=== PATIENT | female | born 1935 | race Caucasian/White ===

== ENCOUNTER 2020-05-16 12:47 | Outpatient (CLI) | payer MEDICARE, SELFPAY ==
[2020-05-16 13:38] LABS: Thyroid Stimulating Hormone 0.18 uIU/mL (0.36-3.74)
== END 2020-05-16 12:48 | disposition home or self-care (01) ==
PROVIDERS: PCP Internal Medicine; Visit Provider Internal Medicine
DX: E03.9 Hypothyroidism, unspecified (principal)
CPT/HCPCS: 36415; 84443

== ENCOUNTER 2020-06-15 10:58 | Outpatient (CLI) | payer MEDICARE, SELFPAY ==
[2020-06-15 11:12] LABS: Basophils Absolute Auto 0.03 K/mm3 (0.00-0.10); Basophils Percent Auto 0.4 % (0.0-1.0); Eosinophils Absolute Auto 0.24 K/mm3 (0.02-0.50); Eosinophils Percent Auto 3.6 % (1.0-6.0); Hematocrit 36.9 % (35.0-42.0); Hemoglobin 12.3 g/dL (11.7-13.8); Immature Granulocyte Absolute 0.01 K/mm3 (0.00-0.00); Immature Granulocyte Percent A 0.1 % (0.0-0.0); Lymphocytes Absolute Auto 3.38 K/mm3 (1.10-4.50); Lymphocytes Percent Auto 50.2 % (18.0-42.0); Mean Corpuscular HGB Conc 33.3 g/dL (32.0-36.0); Mean Corpuscular Hemoglobin 30.9 pg (27.0-31.0); Mean Corpuscular Volume 92.7 fL (78.0-102.0); Mean Platelet Volume 9.6 fl (9.2-11.8); Monocytes Percent Auto 8.9 % (2.0-11.0); Neutrophils Absolute Auto 2.5 K/mm3 (1.7-7.2); Neutrophils Percent Auto 36.8 % (50.0-70.0); Platelet Count Result 238 K/mm3 (150-420); Red Blood Count 3.98 M/mm3 (4.20-5.40); White Blood Count 6.7 K/mm3 (4.8-10.8)
[2020-06-15 11:13] LABS: Add Urine Microscopic? NO; Appearance Urine Clear (Clear); Bilirubin Urine Negative (Negative); Blood Urine Negative (Negative); Color Urine Yellow (Yellow); Glucose Urine UA Negative (Negative); Ketones Urine Negative (Negative); Leukocyte Esterase Ur Negative LEU/UL (Negative); Nitrate Urine Negative (Negative); Protein Urine Negative (Negative); Urobilinogen Urine 0.2 mg/dL (0.2-1.0)
[2020-06-15 11:38] LABS: Alanine Aminotransferase 21 U/L (14-59); Albumin Level 3.8 g/dL (3.4-5.0); Alkaline Phosphatase 66 U/L (46-116); Aspartate Amino Transferase 56 U/L (15-37); Bilirubin,Total 0.4 mg/dL (0.00-1.00); Blood Urea Nitrogen 19 mg/dL (7-18); Calcium 8.9 mg/dL (8.5-10.1); Carbon Dioxide 29 mmol/L (21-32); Chloride 103 mmol/L (98-108); Cholesterol 151 mg/dL (0-200); Estimated Glomerular Filt Rate 42; Glucose 88 mg/dL (70-99); HDL Direct 40 mg/dL (40-60); LDL Cholesterol Calculated 86 mg/dL (<130); Osmolality Calculated 283 mOsm/kg (285-295); Sodium 136 mmol/L (136-145); Total Protein 8.1 g/dL (6.4-8.2); Triglycerides 124 mg/dL (0-150)
== END 2020-06-15 10:59 | disposition home or self-care (01) ==
LOC: CHSLAB 11:00
PROVIDERS: PCP Internal Medicine; Visit Provider Internal Medicine
DX: E03.9 Hypothyroidism, unspecified (principal); E78.5 Hyperlipidemia, unspecified; M54.5 Low back pain
CPT/HCPCS: 36415; 80053; 80061; 81003; 84443; 85025

== ENCOUNTER 2020-11-01 15:06 | Outpatient (CLI) | payer MEDICARE, SELFPAY ==
--- NOTE | ~2020-11-01 | XR_ITS ---
XR lumbar spine 2-3V 11/01/2020 15:54 Indication: Low back pain Procedure: 3 views lumbar spine Comparison: 09/17/2017 Findings: There is disc narrowing at all lumbar levels. No fracture or traumatic malalignment. No joyce dence for spondylolisthesis. There is facet degenerative change at L3-4, L4-5 and L5-S1. Prominent ma rginal osteophytes. Sacral foramen are symmetric. There are cholecystectomy clips. Impression: 1: Moderate lumbar spondylosis. Reviewed, dictated and finalized at location B. H BRUSHER Impression: 1: Moderate lumbar spondylosis.
--- NOTE | ~2020-11-01 | XR_ITS ---
XR hip LT min 2V 11/01/2020 15:54 Indication: Low back pain. Hip pain. Procedure: 2 views left hip Comparison: No prior studies for comparison. Findings: Moderate-severe osteoarthritis of the left hip. No fracture or traumatic malalignment. No s ignificant soft tissue abnormality. Sacral foramen are symmetric. There are degenerative changes of t he lower lumbar spine and pubic symphysis. Impression: 1: Moderate-severe osteoarthritis of the left hip. Reviewed, dictated and finalized at location B. ACE TENDER Impression: 1: Moderate-severe osteoarthritis of the left hip.
[2020-11-01 15:22] LABS: Basophils Absolute Auto 0.03 K/mm3 (0.00-0.10); Basophils Percent Auto 0.5 % (0.0-1.0); Eosinophils Absolute Auto 0.11 K/mm3 (0.02-0.50); Eosinophils Percent Auto 1.7 % (1.0-6.0); Hematocrit 34.1 % (35.0-42.0); Hemoglobin 11.1 g/dL (11.7-13.8); Immature Granulocyte Absolute 0.02 K/mm3 (0.00-0.00); Immature Granulocyte Percent A 0.3 % (0.0-0.0); Lymphocytes Percent Auto 44.9 % (18.0-42.0); Mean Corpuscular HGB Conc 32.6 g/dL (32.0-36.0); Mean Corpuscular Hemoglobin 29.8 pg (27.0-31.0); Mean Corpuscular Volume 91.7 fL (78.0-102.0); Mean Platelet Volume 9.5 fl (9.2-11.8); Monocytes Absolute Auto 0.88 K/mm3 (0.10-0.90); Monocytes Percent Auto 13.6 % (2.0-11.0); Neutrophils Absolute Auto 2.5 K/mm3 (1.7-7.2); Platelet Count Result 262 K/mm3 (150-420); Red Blood Count 3.72 M/mm3 (4.20-5.40); Red Cell Distribution Width 13.4 % (11.6-14.4); White Blood Count 6.5 K/mm3 (4.8-10.8)
[2020-11-01 16:00] LABS: Alanine Aminotransferase 18 U/L (14-59); Albumin Level 3.7 g/dL (3.4-5.0); Alkaline Phosphatase 64 U/L (46-116); Amylase 55 U/L (25-115); Anion Gap 9 mmol/L (8-16); Aspartate Amino Transferase 54 U/L (15-37); Bilirubin,Total 0.3 mg/dL (0.00-1.00); Blood Urea Nitrogen 24 mg/dL (7-18); CRP 1.1 mg/dL (0.0-0.9); Calcium 9.1 mg/dL (8.5-10.1); Carbon Dioxide 27 mmol/L (21-32); Chloride 99 mmol/L (98-108); Estimated Glomerular Filt Rate 40; Glucose 93 mg/dL (70-99); Lipase 188 U/L (73-393); Osmolality Calculated 284 mOsm/kg (285-295); Sodium 135 mmol/L (136-145); Total Protein 9.7 g/dL (6.4-8.2)
== END 2020-11-01 15:07 | disposition home or self-care (01) ==
PROVIDERS: PCP Internal Medicine; Visit Provider Internal Medicine
DX: M54.5 Low back pain (principal); M25.552 Pain in left hip; R10.9 Unspecified abdominal pain; M16.12 Unilateral primary osteoarthritis, left hip
CPT/HCPCS: 36415; 72100; 73502; 80053; 82150; 83690; 85025; 86140

== ENCOUNTER 2020-11-04 09:29 | Outpatient (CLI) | payer MEDICARE, SELFPAY ==
--- NOTE | ~2020-11-04 | CT_ITS ---
EXAMINATION: CT abdomen pelvis w con EXAM DATE: 11/04/2020 10:11 INDICATION: Right lower quadrant intermittent pain with nausea and vomiting. Symptoms 3 days. TECHNIQUE: Spiral CT of the abdomen and pelvis was performed following intravenous injection of 100 m L Omnipaque 350. Axial, coronal and sagittal images were reviewed. The dose-length product (DLP) fo r this examination was 398.22 mGy-cm. The exposure was tailored according to patient size (auto mA e xposure control), and iterative reconstruction (ASIR) was used as additional dose reduction technique . Comparison is made to prior examination from 11/26/2018. FINDINGS: Scattered faint patchy basilar groundglass opacities Appearance could indicate early stage COVID 19 pneumonia. Less likely acute possibilities include influenza, pulmonary edema or hemorrhag e. Some chronic processes that can have this appearance include cryptogenic organizing pneumonia, tiesha quamative interstitial pneumonia, nonspecific interstitial pneumonia, drug toxicity, connective tissu e disease. Please clinically correlate and test as appropriate. The liver, spleen, adrenal glands and pancreas are unremarkable. There are cholecystectomy clips. P ortal and splenic veins are patent. Kidneys enhance symmetrically. There is no hydronephrosis. Th e uterus is unremarkable. Left-sided pelvic congestion syndrome. The bladder is unremarkable. There is no retroperitoneal or pelvic lymphadenopathy. Moderate aortic arterial sclerosis. Small inguinal fat-containing hernias. In the left labia there is soft tissue density, measuring 3.4 x 1.9 cm, most likely Bartholin's gland origin. This could be a proteinaceous or stones gland duct cy st, or soft tissue mass. It appears unchanged compared to 2018 and therefore most likely benign findi ng. The appendix or its surgical stump is unremarkable. The stomach and small bowel are unremarkable. T here is expected amount of colonic stool. There is mild scattered colonic diverticulosis. There is n o adjacent inflammatory change to suggest diverticulitis. No free intraperitoneal gas. The heart i s normal in size. There are no pericardial or pleural effusions. Interval development of large oste olytic lesions within L1, L3 and L4 vertebral bodies. IMPRESSION: 1. Some faint ill-defined basilar groundglass opacities, possible early COVID-19. Some other possibi lities listed above. 2. Interval development of osteolytic disease L1, L3 and L4. Likely myeloma or other metastatic dise ase. 3. Left labial soft tissue density mass unchanged, likely Bartholin's gland duct cyst. Solid mass no t excludable but most likely benign. I discussed bone lesions, possible COVID-19 with Davy Isabel MD at 11/04/2020 11:45 STAGE PRODUCER. Reviewed, dictated and finalized at location A. E PRODUCER IMPRESSION: 1. Some faint ill-defined basilar groundglass opacities, possible early COVID- 19. Some other possibilities listed above. 2. Interval development of osteolytic disease L1, L3 and L4. Likely myeloma or other metastatic disease. 3. Left labial soft tissue density mass unchanged, likely Bartholin's gland du ct cyst. Solid mass not excludable but most likely benign. I discussed bone lesions, possible COVID-19 with Davy Isabel MD at 11/04/2020 11:45 STAGE PRODUCER.
== END 2020-11-04 09:30 | disposition home or self-care (01) ==
PROVIDERS: PCP Internal Medicine; Visit Provider Internal Medicine
DX: R10.9 Unspecified abdominal pain (principal)
CPT/HCPCS: 74177; Q9965

== ENCOUNTER 2020-11-07 09:35 | Outpatient (CLI) | payer MEDICARE, SELFPAY ==
[2020-11-07 11:19] LABS: Hematocrit 31.8 % (35.0-42.0); Hemoglobin 10.3 g/dL (11.7-13.8); Mean Corpuscular HGB Conc 32.4 g/dL (32.0-36.0); Mean Corpuscular Hemoglobin 29.2 pg (27.0-31.0); Mean Corpuscular Volume 90.1 fL (78.0-102.0); Mean Platelet Volume 9.6 fl (9.2-11.8); Platelet Count Result 217 K/mm3 (150-420); Red Blood Count 3.53 M/mm3 (4.20-5.40); Red Cell Distribution Width 13.5 % (11.6-14.4); White Blood Count 3.6 K/mm3 (4.8-10.8)
[2020-11-07 11:41] LABS: SARS-CoV-2 Ag Positive (Negative)
[2020-11-07 12:34] LABS: Band Neutrophils Percent 0 % (0-6); Basophils Percent Manual 0 % (0-1); Eosinophils Percent Manual 0 % (1-6); Lymphocytes Absolute Manual 1.36 K/mm3 (1.1-4.5); Lymphocytes Percent Manual 38 % (18-44); Monocytes Absolute Manual 0.21 K/mm3 (0.1-0.90); Monocytes Percent Manual 6 % (3-9); Neutrophils Absolute Manual 2.01 K/mm3 (1.7-7.2); Neutrophils Percent Manual 56 % (46-73); Platelet Estimate Adequate (Adequate); Total Cells Counted 100
== END 2020-11-07 09:36 | disposition home or self-care (01) ==
LOC: CHSLAB 09:37
PROVIDERS: PCP Internal Medicine; Visit Provider Internal Medicine
DX: U07.1 COVID-19 (principal)
CPT/HCPCS: 36415; 85025; 87426

== ENCOUNTER 2020-11-09 10:37 | Observation (INO) | payer MEDICARE, SELFPAY ==
[2020-11-09] VITALS (21 sets, daily range): BP systolic 113–145; BP diastolic 47–83; PULSE 68–84; RESP 16–24; TEMP 36.6–36.7; O2SAT 92–94; BMI 24.2
--- NOTE | ~2020-11-09 | XR_ITS ---
EXAMINATION: XR chest 1V portable DATE: 11/09/2020 11:28 INDICATION: COVID-19 pneumonia. TECHNIQUE: A single frontal view of the chest was obtained. COMPARISON: Chest 2 views 02/04/2019, CT abdomen and pelvis 11/04/20 FINDINGS: There are patchy airspace opacities in all lung zones bilaterally, worst in the midlung zon es. No pleural effusion or pneumothorax. The heart size is normal. IMPRESSION: 1. Diffuse lung disease, consistent with pneumonia. Reviewed, dictated and finalized at location B. IRER HANDTOOLS
--- NOTE | 2020-11-09 11:09 | ECG_ITS ---
Measurements Intervals Ramona Rate: 72 P: 69 IA: 128 QRS: -79 QRSD: 138 T: 2 QT: 434 QTc: 477 Interpretive Statements SINUS RHYTHM RIGHT BUNDLE BRANCH BLOCK LEFT ANTERIOR FASCICULAR BLOCK BASELINE WANDER- V6 ABNORMAL ECG Electronically Signed On 11-09-2020 12:26:09 TECHNICAL STENOGRAPHER by Hiram Fernandez D.O.
[2020-11-09 11:18] LABS: Eosinophils Percent Auto 0.3 % (0-4.4); Hematocrit 32.5 % (37.0-47.0); Hemoglobin 10.7 g/dL (12.0-15.0); Immature Granulocyte Absolute 0.01 K/mm3 (0.00-0.031); Immature Granulocyte Percent A 0.3 % (0-0.5); Lymphocytes Absolute Auto 0.98 K/mm3 (0.9-3.2); Lymphocytes Percent Auto 31.6 % (18.3-44.2); Mean Corpuscular HGB Conc 32.9 g/dl (32-36); Mean Corpuscular Hemoglobin 29.3 pg (26-34); Mean Platelet Volume 9.4 fl (7.4-10.4); Monocytes Absolute Auto 0.2 K/mm3 (0.1-0.6); Monocytes Percent Auto 7.1 % (2.6-8.5); Neutrophils Absolute Auto 1.9 K/mm3 (1.3-6.7); Neutrophils Percent Auto 60.7 % (45.5-73.1); Platelet Count Result 250 k/mm3 (150-375); Red Blood Count 3.65 M/mm3 (4.2-5.4); Red Cell Distribution Width 13.7 % (11.5-14.5); White Blood Count 3.1 K/mm3 (4.5-10.0)
[2020-11-09 11:29] LABS: Lactic Acid Reflex 1.3 mmol/L (0.7-2.1)
[2020-11-09 11:29] LABS: Anion Gap 7 mmol/L (8-16); Blood Urea Nitrogen 16 mg/dL (7-17); Calcium 8.6 mg/dL (8.4-10.2); Carbon Dioxide 27 mmol/L (22-30); Chloride 100 mmol/L (98-107); Estimated CRCL calculation 36 ml/min; Estimated Glomerular Filt Rate 60; Glucose 103 mg/dL (65-105); Potassium 3.7 mmol/L (3.4-5.0); Sodium 134 mmol/L (137-145)
--- NOTE | 2020-11-09 11:34 | ED.SOB ---
HPI - SOB/Dyspnea General Chief Complaint: Shortness of Breath/Dyspnea Stated Complaint: covid +, sob, ams Time Seen by Provider: 11/09/20 11:05 History of Present Illness HPI Narrative: 84 yo female w/ h/o hypercholesterolemia and hypothyroidism presents to the ED for COVID-19. She Has not been feeling well for the past week. She reports cough, SOB, fatigue, poor appetite for about the past week. She had a positive COVID-19 test on 11/07. Family reportedly brought her in today because she was more confused and SOB. She also had a CT done of the abdomen and pelvis on 11/04 at [facility] that showed lytic lesion in the lumbar spine concerning for lymphoma or metastatic disease. Related Data Home Medications Medication Instructions Recorded Confirmed acetaminophen 500 mg PO Q6H PRN 11/09/20 11/09/20 levothyroxine 75 mcg PO DAILY 11/09/20 11/09/20 simvastatin 10 mg PO DIRECTED 11/09/20 11/09/20 Allergies Allergy/AdvReac Type Severity Reaction Status Date / Time No Known Allergies Allergy Unknown Verified 11/09/20 15:11 Review of Systems Review of Systems: All systems reviewed & are unremarkable except as noted in HPI and below Constitutional: Constitutional: Reports chills, Reports fatigue, Denies fever(s) and Reports weakness ENT: Denies sore throat Cardiovascular: Cardiovascular: Denies chest pain Respiratory: Respiratory: Reports cough, Reports dyspnea and Reports wheezing Gastrointestinal: Gastrointestinal: Reports nausea and Reports vomiting Genitourinary: Genitourinary: Denies hematuria and Denies dysuria Musculoskeletal: Musculoskeletal: Denies back pain Neurologic: Denies dizziness and Reports weakness PMF Past Medical History Medical History (Updated 11/09/20 @ 20:42 by Juan Rolle MD) Bilateral cataracts Hypercholesterolemia Hypothyroidism Surgical History Surgical History (Updated 11/09/20 @ 17:57 by Sadie Mauricio NP) H/O bilateral cataract extraction H/O hemorrhoidectomy History of removal of pigmented skin lesion Previous back surgery Family History Family History (Updated 11/09/20 @ 18:09 by Sadie Mauricio NP) Mother Family history of malignant neoplasm Carcinoma of colon Father No problems noted. Sibling Cancer Brother leukemia and another brother with another type of can Dementia 1 brother Social History Social History (Updated 11/09/20 @ 18:09 by Sadie Mauricio NP) Social History: The patient has 3 sons. 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 The patient is a full code. She lives home alone she is . 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 Smoking status: Never smoker Second hand tobacco smoke exposure: No Smoking end date: [birth year]/02/1955 Alcohol intake: current Substance use: never Gender identity (if verbalized by the patient): Female Sexual Orientation (if Verbalized by the Patient): Straight or Heterosexual Spiritual care concerns: No Exam Const: General: healthy appearing, no acute distress and alert Orientation/consciousness: patient oriented x3 HENMT: Head: normal to inspection Neck: Neck: normal visual inspection and no lymphadenopathy Chest: Chest palpation & inspection: no tenderness Resp: Effort & Inspection: normal respiratory effort Auscultation: no rales, no rhonchi and wheezes Cardio: Jugular venous distension: no JVD Rate: regular rate Rhythm: regular rhythm Heart sounds: no murmurs GI: Inspection: non-distended GI Palp: Yes Soft to palpation and No Tenderness to palpation present (GI) Skin: General skin exam: normal color Neuro: General: patient oriented x3 and moves all extremities Speech: normal speech Extrem: General: no edema Psych: Appearance: well kempt Affect: normal affect Course Vital Signs Vital signs: Vital Signs Temperature 36.6 C 11/09/20 11:00 Pulse R
[2020-11-09] MEDS: SODIUM CHLORIDE 0.9% IV 500 ML 999 ML IV CONT (12:00)
[2020-11-09 12:02] LABS: Alanine Aminotransferase 23 U/L (4-35); Albumin Level 3.5 g/dL (3.5-5.1); Alkaline Phosphatase 61 U/L (38-126); Aspartate Amino Transferase 104 U/L (14-36); Bilirubin,Total 0.5 mg/dL (0.2-1.3)
[2020-11-09 12:38] LABS: Add Urine Microscopic? YES; Appearance Urine Clear (Clear); Bilirubin Urine Negative (Negative); Blood Urine Negative (Negative); Color Urine Yellow (Yellow); Glucose Urine UA Negative (Negative); Ketones Urine Negative (Negative); Leukocyte Esterase Ur Negative LEU/UL (Negative); Mucus Urine Rare /lpf; Nitrate Urine Negative (Negative); Protein Urine 2+ mg/dL (Negative); RBC Urine 0-2 /hpf (0-2); Squamous Epithelial Cell Urine Rare /hpf (Few); Urobilinogen Urine Negative mg/dL (<2.0); WBC Urine 0-3 /hpf
[2020-11-09 12:40] LABS: Specific Grav Ur 1.032 (1.001-1.035)
[2020-11-09] MEDS: ALBUTEROL SULFATE (*SP) AEROSOL 1 PUFF 4 PUFF INHALATION (12:45)
[2020-11-09] MEDS: ALBUTEROL SULFATE (*SP) INHALER 1 PUFF (12:58)
--- NOTE | 2020-11-09 15:04 | ADMGEN ---
This patient, Beverly Linares, was admitted to [facility] Surg Room 317-01. Patient/family oriented to hospital policies and general routines including ID bracelet, bed and alarms, visiting hours, pain management, procedures, bathroom and other care routines, personal items, smoking policy, room service/diet, and visiting hours. Information on how to activate the Rapid Response Team has been discussed. Patient/Family are encouraged to report perceived risks to care and to ask questions if they do not understand what they are told or what they should do.
--- NOTE | 2020-11-09 17:47 | PM.IMHP ---
H&P: HPI History of Present Illness Date/Time: 11/09/20 17:47 Chief complaint: COVID 19 pneumonia/lytic spinal lesions Narrative: Beverly Linares is a 84 year old female who came to the hospital today because she has been having a cough shortness of breath fatigue and a poor appetite for the last week. She did meet with her family members over the and 2 of those members have tested positive for COVID-19 since then. She had a positive covid 19 test on 11/07/20. The CT of the abdomen and pelvis was performed site [facility] on 11/04 which was showing some lytic lesions in the lumbar spine concerning for lymphoma or metastatic disease. The patient stated she was just told that it was arthritis. She has not had any follow-up. She has no complaints of any discomfort at this time. The patient was started on Decadron in the Emergency because the ER provider felt the patient was short of breath. However the patient is currently on room air. She is up walking with 1 assist without difficulty. She is not requiring any oxygen. In to me she is alert orientated x3. She is answering questions without difficulty. She is very hard of hearing and therefore can be difficult to communicate with the patient making it difficult for the patient to understand. However when you speak to the patient loudly enough and into her ear she can communicate appropriately. That the patient was dehydrated she was given IV fluids. Patient was admitted into observation status on 11/09/2020. Review of Systems Review of Systems: All systems reviewed & are unremarkable except as noted in HPI and below Constitutional: Constitutional: Reports as per HPI and Reports no additional constitutional complaints Eyes: Eyes: Reports as per HPI and Reports no additional eye complaints ENT: Reports system reviewed and no additional complaints, except as documented and Reports Normal hearing present Cardiovascular: Cardiovascular: Reports no additional cardiovascular complaints Respiratory: Respiratory: Reports no additional respiratory complaints and Reports no additional respiratory complaints Gastrointestinal: Gastrointestinal: Reports as per HPI and Reports no additional gastrointestinal complaints Musculoskeletal: Musculoskeletal: Reports no additional musculoskeletal complaints Integumentary/Breasts: Skin/Breast: Reports system reviewed and no additional complaints, except as docu and Reports as per HPI Neurologic: Reports system reviewed and no additional complaints, except as documented, Reports as per HPI and Reports Normal hearing present Psychiatric: Psychiatric: Reports no additional psychiatric complaints and Reports as per HPI Endocrine: Endocrine: Reports no additional endocrine complaints Hematologic/Lymphatic: Hematologic/Lymphatic: Reports no additional hematologic/lymphatic complaints Allergic/Immunologic: Allergic/Immunologic: Reports no additional allergic/immunologic complaints [facility] Past Medical History Medical History (Updated 11/09/20 @ 18:13 by Sadie Mauricio NP) Bilateral cataracts Hypercholesterolemia Hypothyroidism Surgical History Surgical History (Updated 11/09/20 @ 17:57 by Sadie Mauricio NP) H/O bilateral cataract extraction H/O hemorrhoidectomy History of removal of pigmented skin lesion Previous back surgery Family History Family History (Updated 11/09/20 @ 18:09 by Sadie Mauricio NP) Mother Family history of malignant neoplasm Carcinoma of colon Father No problems noted. Sibling Cancer Brother leukemia and another brother with another type of can Dementia 1 brother Social History Social History (Updated 11/09/20 @ 18:09 by Sadie Mauricio NP) Social History: The patient has 3 sons. 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 The patient is a full code. She lives home alone she is . 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
[2020-11-09] MEDS: LACTATED RINGERS 1,000 ML 75 ML IV CONT (18:06)
[2020-11-09] MEDS: ALBUTEROL SULFATE (*SP) AEROSOL 1 PUFF 2 PUFF INHALATION (20:56)
[2020-11-10] VITALS: BP 139/64; PULSE 64; PULSE 68; RESP 16; TEMP 36.6; O2SAT 94
[2020-11-10] MEDS: ACETAMINOPHEN 500 MG TABLET PO ×2 (00:30→10:47)
[2020-11-10 04:00] VITALS: BP 144/61; PULSE 54; PULSE 63; RESP 18; TEMP 36.3; O2SAT 95
[2020-11-10 06:46] LABS: Lactic Acid Reflex 1.2 mmol/L (0.7-2.1)
[2020-11-10] MEDS: LEVOTHYROXINE SODIUM 75 MCG TABLET PO (06:48)
[2020-11-10 06:49] LABS: Alanine Aminotransferase 21 U/L (4-35); Albumin Level 3.5 g/dL (3.5-5.1); Alkaline Phosphatase 60 U/L (38-126); Anion Gap 7 mmol/L (8-16); Aspartate Amino Transferase 85 U/L (14-36); Bilirubin,Total 0.3 mg/dL (0.2-1.3); Blood Urea Nitrogen 20 mg/dL (7-17); CRP 8.5 mg/dL (<1.0); Calcium 8.7 mg/dL (8.4-10.2); Carbon Dioxide 22 mmol/L (22-30); Chloride 105 mmol/L (98-107); Estimated CRCL calculation 40 ml/min; Estimated Glomerular Filt Rate > 60; Glucose 140 mg/dL (65-105); Lactate Dehydrogenase 643 U/L (313-618); Sodium 134 mmol/L (137-145)
[2020-11-10 06:53] LABS: Hematocrit 29.3 % (37.0-47.0); Hemoglobin 9.8 g/dL (12.0-15.0); Mean Corpuscular HGB Conc 33.4 g/dl (32-36); Mean Corpuscular Hemoglobin 28.9 pg (26-34); Mean Corpuscular Volume 86.4 fl (80-100); Mean Platelet Volume 9.8 fl (7.4-10.4); Platelet Count Result 274 k/mm3 (150-375); Red Blood Count 3.39 M/mm3 (4.2-5.4); Red Cell Distribution Width 13.7 % (11.5-14.5); White Blood Count 3.9 K/mm3 (4.5-10.0)
[2020-11-10 07:31] LABS: Thyroid Stimulating Hormone Reflex 0.755 uIU/mL (0.465-4.68)
[2020-11-10 07:35] LABS: Band Neutrophils Percent 1 % (0-6); Lymphocytes Absolute Manual 0.97 K/mm3 (1.1-4.5); Monocytes Absolute Manual 0.35 K/mm3 (0.1-0.90); Monocytes Percent Manual 9 % (3-9); Neutrophils Absolute Manual 2.57 K/mm3 (1.7-7.2); Neutrophils Percent Manual 65 % (46-73); Total Cells Counted 100
[2020-11-10 07:36] LABS: Ovalocytes 1+ (NORMAL); Platelet Estimate Adequate (Adequate)
[2020-11-10 08:00] VITALS: BP 139/65; PULSE 61; PULSE 66; RESP 16; TEMP 36.4; O2SAT 91
[2020-11-10] MEDS: ENOXAPARIN 40 MG/0.4 ML SYRINGE SUB-Q (08:13)
[2020-11-10] MEDS: DEXAMETHASONE SOD PHOS INJ 4 MG/ML VIAL 6 MG IV PUSH (08:13)
[2020-11-10] MEDS: ALBUTEROL SULFATE (*SP) AEROSOL 1 PUFF 2 PUFF INHALATION ×3 (08:14→16:52)
[2020-11-10 12:00] VITALS: BP 114/78; PULSE 65; PULSE 68; RESP 18; TEMP 36.5; O2SAT 91
[2020-11-10 15:44] VITALS: BP 137/69; PULSE 77; RESP 18; TEMP 36; O2SAT 92
[2020-11-10 16:00] VITALS: PULSE 67
[2020-11-10 16:03] LABS: Lactate Dehydrogenase 700 U/L (313-618)
[2020-11-10 16:20] LABS: Immunoglobulin A 116 mg/dL (70-400); Immunoglobulin M 38 mg/dL (40-230)
[2020-11-10 16:28] LABS: Iron 24 ug/dL (37-170)
[2020-11-10 16:37] LABS: Percent Iron Saturation 10 % (20-50)
[2020-11-10 17:12] LABS: Immunoglobulin G 2971 mg/dL (700-1600)
--- NOTE | 2020-11-10 17:41 | PDONCCN ---
HPI - Date of Consult Date/Time: 11/10/20 17:41 Requesting Physician: Mellissa Lopez PA-C Primary Care Provider: Davy Isabel MD - Consult Narrative Reason for consult: Anemia and lytic bone lesion Narrative: Beverly Lianres is a 84 year old female who has been in good health except history of hypothyroidism and hyperlipidemia came into the hospital with generalized weakness cough and shortness of breath. She denies any fevers and chills. She met with the family members over the iday and 2 although some remembers were reportedly positive for COVID-19 infection. She had COVID-19 testing done on November [address] abdomen and pelvis was performed on November 04 that showing lytic lesion on the lumbar spine concerning for lymphoma or metastatic disease. She denies any previous history of malignancy. She denies any new lumps or lymphadenopathy. She has gradually lost 20 lb weight in last several months. She has a family history of cancer in the father who of leukemia as well as mother with colon cancer. Another brother had colon cancer as well. She is already feeling better. Review of Systems - Review of Systems All systems reviewed & are unremarkable except as noted in HPI and bel - Neurologic Reports system reviewed and no additional complaints, except as documented, Reports hearing normal, Reports weakness PMFSH Medical History: Medical History (Last Updated 11/09/20 @ 18:13 by Sadie Mauricio NP) Bilateral cataracts Hypercholesterolemia Hypothyroidism Surgical History: Surgical History (Last Updated 11/09/20 @ 17:57 by Sadie Mauricio NP) H/O bilateral cataract extraction H/O hemorrhoidectomy History of removal of pigmented skin lesion Previous back surgery Family History: Family History (Last Updated 11/09/20 @ 18:09 by Sadie Mauricio NP) Mother Family history of malignant neoplasm Carcinoma of colon Father No problems noted. Sibling Cancer Brother leukemia and another brother with another type of can Dementia 1 brother - Social History Social History: Social History (Last Updated 11/09/20 @ 18:09 by Sadie Mauricio NP) Gender Identity: Gender identity (if verbalized by the patient): Female Sexual Orientation: Sexual Orientation (if Verbalized by the Patient): Straight or Heterosexual Alcohol Use: Alcohol intake: current Substance Use: Substance use: never Others: Spiritual care concerns: No Smoking Status: Smoking status: Never smoker Second hand tobacco smoke exposure: No Smoking end date: [birth year]02/1955 Meds Home Medications Medication Instructions Recorded Confirmed Type acetaminophen 500 mg PO Q6H PRN 11/09/20 11/09/20 History levothyroxine 75 mcg PO DAILY 11/09/20 11/09/20 History simvastatin 10 mg PO DIRECTED 11/09/20 11/09/20 History dexamethasone 6 mg PO DAILY #9 tablet 11/10/20 Rx Allergies Allergy/AdvReac Type Severity Reaction Status Date / Time No Known Allergies Allergy Unknown Verified 11/09/20 15:11 Results - Labs CBC & Chem 7: 11/10/20 06:09 11/10/20 06:09 Labs: Short CBC 11/10/20 Range/Units 06:09 WBC 3.9 L (4.5-10.0) K/mm3 Hgb 9.8 L (12.0-15.0) g/dL Hct 29.3 L (37.0-47.0) % Plt Count 274 (150-375) k/mm3 BMP 11/10/20 06:09 Sodium 134 L Potassium 4.0 Chloride 105 Carbon Dioxide 22 BUN 20 H Creatinine 0.80 Glucose 140 H Calcium 8.7 Liver Function 11/10/20 Range/Units 06:09 Total Bilirubin 0.3 (0.2-1.3) mg/dL AST 85 H (14-36) U/L ALT 21 (4-35) U/L Alkaline Phosphatase 60 (38-126) U/L Albumin 3.5 (3.5-5.1) g/dL Assessment and Plan - Additional Plan Lytic bone lesions. This is a pleasant 84-year-old female who has been in good health except history of hyperlipidemia and hypothyroidism. He came into the hospital with general
--- NOTE | 2020-11-13 07:15 | PM.DS ---
DS: Admitting Diagnosis Admitting Diagnosis Admitting Diagnosis: COVID 19 pneumonia/lytic spinal lesions DS: Discharge Diagnosis Discharge Diagnosis (1) COVID-19: Code(s): U07.1 - COVID-19 Status: Acute Assessment and Plan: Positive result on 11/07/20. She complained of increased SOB. CXR showed diffuse lung disease consistent with pneumonia. She remained afebrile. She had no episodes of hypoxia and maintained adequate oxygenation on room air. She was started on dexamethasone which she will continue as an outpatient to complete 10 days. Given her stable condition, remdesivir was not initiated. Supportive care provided. (2) Lytic bone lesions on xray: Code(s): M89.9 - Disorder of bone, unspecified Status: Acute Assessment and Plan: CT a/p ordered by PCP as an outpatient on 11/04 showed osteolytic disease of L1 ,L3, and L4 which was concerning for multiple myeloma or other metastatic disease. She has no history of malignancy. She was seen in consultation by Dr. Ontiveros who proceeded with serologic testing for multiple myeloma. She will follow up as an outpatient for these results. I discussed with both the patient and her son the importance of follow up regarding these findings. (3) Physical deconditioning: Code(s): R53.81 - Other malaise Status: Acute Assessment and Plan: Patient had been feeling weak and was concerned about caring for herself at home. TSH and B12 wnl. She was evaluated by PT and OT during her stay. She will continue therapy at [facility]. (4) Hypothyroidism: Code(s): E03.9 - Hypothyroidism, unspecified Status: Chronic Assessment and Plan: TSH wnl. Continue levothyroxine. (5) Hypercholesterolemia: Code(s): E78.00 - Pure hypercholesterolemia, unspecified Status: Chronic Assessment and Plan: Continue simvastatin. DS: Summary Hospital Course Reason for hospitalization: COVID-19 Hospital Course: date admission: 11/09/2020 date of discharge: 11/10/2020 Beverly Linares is an 84-year-old female with history of hypothyroidism and hyperlipidemia who tested positive for COVID 11/07/2020 and presented to the emergency department 11/09/2020 complaints of shortness of breath, fatigue, and weakness. She recently had a CT her abdomen and pelvis on 11/04 ordered by PCP which showed lytic lesions concerning for myeloma or other metastatic disease. upon presentation to the emergency department, vital signs stable, she was afebrile, she had mild leukopenia and anemia, electrolytes stable, and chest x-ray showed diffuse lung disease consistent with pneumonia. She was admitted to the hospitalist service and seen in consultation by oncology. Please see above for further details. She had no episodes of hypoxia. She was started on dexamethasone which she will continue. She will follow up with Dr. Ontiveros as an outpatient and workup is currently pending. She will continue therapy at [facility]. We discussed measures to help reduce the spread of COVID-19 and worrisome signs and symptoms for which to seek medical care. Given her overall improvement, she was determined to no longer require inpatient care and was felt to be stable for discharge. She was comfortable with transition to [facility]. She was discharged in hemodynamically stable condition on 11/10/2020. Status at Discharge Functional status at discharge: uses cane/walker Overall status at discharge: patient is progressing back to baseline Time Spent with Patient Time attestation: Total time spent providing and/or coordinating discharge services: 45 minutes Time spent: Greater than 30 minutes Exam Narrative: Exam Narrative: Ms. Linares is a thin 84-year-old female who is resting comfortably in bed. She appears comfortable and is in NARD. HR 61, BP 139/65, RR 16, T 97.6, 95% on room air Neuro: awake, alert and oriented x4, speech clear, no focal
[2020-11-15 13:29] LABS: Kappa\\Lambda Light Chains 10.41 (0.26-1.65); Lambda Light Chain 14.8 mg/L (5.7-26.3)
[2020-11-15 20:49] LABS: Abnormal Protein Band 1 1.9 g/dL; Albumin 3.4 g/dL (3.8-4.8); Alpha 1 Globulin 0.6 g/dL (0.2-0.3); Alpha 2 Globulin 1.4 g/dL (0.5-0.9); Beta 1 Globulin 0.4 g/dL (0.4-0.6); Gamma Globulin 2.3 g/dL (0.8-1.7); Protein, Total 8.3 g/dL (6.1-8.1)
== END 2020-11-10 17:00 | disposition swing bed (61) ==
LOC: ANHED 11:15 → ANH3MEDSUR 14:33
PROVIDERS: Internal Medicine Hematology & Oncology; Nurse Practitioner; Admitting Provider Internal Medicine; Emergency Provider Emergency Medicine; PCP Internal Medicine; Visit Provider Family Medicine
DX: U07.1 COVID-19 (principal); M89.9 Disorder of bone, unspecified; R53.81 Other malaise; D64.9 Anemia, unspecified; E03.9 Hypothyroidism, unspecified; E78.00 Pure hypercholesterolemia, unspecified; E78.5 Hyperlipidemia, unspecified
CPT/HCPCS: 36415; 51701; 71045; 80048; 80053; 80076; 81001; 82607; 82728; 82784; 83540; 83550; 83605; 83615; 83735; 83883; 84155; 84165; 84443; 85025; 86140; 86334; 93005; 94640; 96361; 96372; 96374; 96376; 97161; 97165; 99285; A9270; G0378; J1100; J1650; J7040; J7120

== ENCOUNTER 2020-11-10 18:26 | Inpatient (IN) | payer MEDICARE, SELFPAY ==
--- NOTE | ~2020-11-10 | XR_ITS ---
EXAMINATION: XR chest 1V portable DATE: 11/13/2020 03:09 INDICATION: Shortness of breath TECHNIQUE: frontal view of the chest was obtained. COMPARISON: Chest radiograph dated 11/09/2020 FINDINGS: Interval decrease in bilateral patchy airspace opacities consistent with improving pneumonia. No pleu ral effusion or pneumothorax. The cardiomediastinal silhouette is normal. IMPRESSION: 1. Decrease in bilateral patchy lung disease consistent with improving pneumonia. Reviewed, dictated and finalized at location A. NTORY CONTROL MANAGER IMPRESSION: 1. Decrease in bilateral patchy lung disease consistent with improving pneumoni a.
--- NOTE | ~2020-11-10 | CT_ITS ---
EXAMINATION: CTA chest PE protocol DATE: 11/13/2020 05:25 INDICATION: Shortness of breath with positive d-dimer, COVID 19 TECHNIQUE: Computed tomography angiography (CTA) of the chest was performed with 100 mL Omnipaque-350 intravenous contrast timed to evaluate the pulmonary arteries. Coronal maximum intensity projection 3D-reconstructions were created by the technologist. The dose-length product (DLP) was 202.37 mGy-cm. Automated exposure control and iterative reconstruction technique were employed. COMPARISON: Abdomen and pelvis CT from 11/04/2020 and 11/26/2018 FINDINGS: The pulmonary arteries are well-opacified. No pulmonary embolism is identified. There are diffuse groundglass opacities of the lungs which demonstrate interval worsening when compared to rece nt CT. Cardiomegaly is noted. There is no pleural effusion or pneumothorax. A 9 mm nodule of the righ t middle lobe previously measured 7 mm. The gallbladder is surgically absent. Punctate calcifications in an otherwise normal spleen likely represent healed granulomatous disease. There are lytic lesions of the T3, T4, T6, and L1 vertebral bodies. IMPRESSION: 1. No pulmonary embolism. 2. Diffuse lung disease with interval worsening, most consistent with COVID 19 pneumonia and/or ARDS. 3. Lytic lesions of the thoracic and lumbar spine, consistent with metastatic disease versus myeloma. 4. Indeterminate 9 mm nodule of the right middle lobe. Follow-up PET/CT is recommended after recovery from pneumonia. Reviewed, dictated and finalized at location A. R TREATMENT PLANT REPAIRER IMPRESSION: 1. No pulmonary embolism. 2. Diffuse lung disease with interval worsening, most consistent with COVID 19 pneumonia and/or ARDS. 3. Lytic lesions of the thoracic and lumbar spine, consistent with metastatic d isease versus myeloma. 4. Indeterminate 9 mm nodule of the right middle lobe. Follow-up PET/CT is vonnie mmended after recovery from pneumonia.
[2020-11-10 18:32] VITALS: BMI 23.0
[2020-11-10 19:29] VITALS: BP 130/66; PULSE 67; RESP 18; TEMP 36.4; O2SAT 91
--- NOTE | 2020-11-10 19:33 | ADMGEN ---
This patient, Beverly Linares, was admitted to 2nd Floor Room 211-1 from [facility], she is covid positive. Patient/family oriented to hospital policies and general routines including ID bracelet, bed and alarms, visiting hours, pain management, procedures, bathroom and other care routines, personal items, smoking policy, room service/diet, and updated no visitation policy. Pt has phone, hop trainer, shoes, jacket, hearing aid, glasses, purse and bag with her. Pt expresses understanding on use of call light and need to call nurse when getting up. Patient/Family are encouraged to report perceived risks to care and to ask questions if they do not understand what they are told or what they should do.
[2020-11-10] MEDS: ACETAMINOPHEN 500 MG TABLET PO (20:25)
[2020-11-10] MEDS: SIMVASTATIN 10 MG TABLET PO (20:26)
--- NOTE | 2020-11-10 20:37 | PC.NURSE ---
pt declines restroom use at this time, cc turned on tv at her request, pt has eaten an ice cream and some apple juice
--- NOTE | 2020-11-10 22:18 | PM.IMHP ---
H&P: HPI History of Present Illness Date/Time: 11/10/20 22:18 Chief complaint: COVID Narrative: Beverly Linares is a 84 year old female Female that was transferred from [facility] to repeat rehab to a swing bed with a history of COVID-19. The patient initially admitted at [facility] with cough shortness of breath, apparently met with family on [place] with family members being positive for cold is that was on November 07 and subsequently developed symptoms and was admitted to [facility]. Patient has a history of hypo thyroidism and hypertension current medications levothyroxine and simvastatin. The while at [facility] patient had a CT scan of abdomen and pelvis which showed lytic lesions of the lumbar spine that was concerning for lymphoma/ metastatic disease and oncology was consulted. Patient had no previous history of malignancy, but has had a 20 lb weight loss over several months. Chest x-ray performed at [facility] showed ground-glass opacities. Patient with anemia and with lytic bone lesion had an evaluation with protein electrophoresis with immunofixation and kappa and lambda test pending. Patient currently not requiring oxygen diagnosed with COVID here with weakness and will be getting physical therapy along with Occupational therapy. Currently after evaluation of the patient's appears comfortable lying in bed has some history of hearing loss and is hard of hearing. Review of Systems Review of Systems: All systems reviewed & are unremarkable except as noted in HPI and below PMFSH Past Medical History Medical History Bilateral cataracts Hypercholesterolemia Hypothyroidism Surgical History Surgical History H/O bilateral cataract extraction H/O hemorrhoidectomy History of removal of pigmented skin lesion Previous back surgery Family History Family History Mother Family history of malignant neoplasm Carcinoma of colon Father No problems noted. Sibling Cancer Brother leukemia and another brother with another type of can Dementia 1 brother Social History Social History Social History: The patient has 3 sons. 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 The patient is a full code. She lives home alone she is . 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 Smoking status: Never smoker Second hand tobacco smoke exposure: No Smoking end date: [birth year]/02/1955 Alcohol intake: current Substance use: never Substance use type: does not use Gender identity (if verbalized by the patient): Female Spiritual care concerns: No Meds Home Medications and Allergies Home Medications Medication Instructions Recorded Confirmed Type acetaminophen 500 mg PO Q6H PRN 11/09/20 11/10/20 History levothyroxine 75 mcg PO DAILY 11/09/20 11/10/20 History simvastatin 10 mg PO HS 11/09/20 11/10/20 History dexamethasone 6 mg PO DAILY #9 tablet 11/10/20 11/10/20 Rx Allergies Allergy/AdvReac Type Severity Reaction Status Date / Time No Known Allergies Allergy Unknown Verified 11/09/20 15:11 Vital Signs Vital Signs - 24 hr 11/10/20 19:29 Temperature 36.4 C Pulse Rate 67 Respiratory Rate 18 Blood Pressure 130/66 Pulse Oximetry 91 Exam Const: General: comfortable and no acute distress Eyes: General: appearance normal, both eyes and all related structures Neck: Neck: no JVD Resp: Auscultation: clear to auscultation bilaterally Cardio: Rate: regular rate Rhythm: regular rhythm GI: GI Palp: Yes Soft to palpation Auscultation: normal bowel sounds Skin: General skin exam: normal color and no rashes or lesions noted Neuro: Speech: normal speech Extrem
[2020-11-11] VITALS: BP 160/69; PULSE 78; RESP 20; TEMP 36.3; O2SAT 91
[2020-11-11] MEDS: ACETAMINOPHEN 500 MG TABLET PO ×3 (02:43→17:05)
[2020-11-11] MEDS: LEVOTHYROXINE SODIUM 75 MCG TABLET PO (05:39)
[2020-11-11 08:00] VITALS: BP 143/68; PULSE 82; RESP 18; TEMP 36.6; O2SAT 81; O2SAT 90
[2020-11-11] MEDS: DEXAMETHASONE 4 MG TABLET 6 MG PO (08:30)
[2020-11-11] MEDS: LIDOCAINE 5% PATCH 1 PATCH TRANSDERM (09:29)
--- NOTE | 2020-11-11 10:38 | PM.EVENT ---
Event Note Event Note Event Note: Informed by RN that Pt's SpO2 was 80% this morning. I placed her on NC at 5 L/min and her SpO2 increased to 91%. She stated that her breathing felt better after this intervention. Lungs were clear, non-productive cough. Will monitor and wean supplemental O2.
[2020-11-11 10:53] VITALS: O2SAT 90
--- NOTE | 2020-11-11 11:18 | PC.NURSE ---
10:30 reassessed pain level. Patient denies any pain while sitting or lying. C/O pain level of 2-3 when ambulating. States the pain is located in her left hip. Achy pain, the kind of pain you get with arthritis.
[2020-11-11 15:48] VITALS: BP 126/51; PULSE 71; RESP 20; TEMP 36.6; O2SAT 95
[2020-11-11] MEDS: PHARMACIST COMMUNICATION ORDER 1 EACH XX (17:08)
--- NOTE | 2020-11-11 17:08 | PC.NURSE ---
SBA and use of cane from home to get from bed to chair, slight FOREMAN noted, oxygen on at 4 L NC
--- NOTE | 2020-11-11 18:37 | PC.NURSE ---
Up from chair, to bathroom with use of cane, changed own shirt, stood at sink and brushed own teeth, wanting oxygen off at this time, removed and assisted to get positioned in bed
[2020-11-11 20:00] VITALS: O2SAT 91
[2020-11-11] MEDS: SIMVASTATIN 10 MG TABLET PO (20:04)
--- NOTE | 2020-11-11 20:35 | PC.NURSE ---
pt oxygen level was 86-87% on room air, pt agreed to wearing oxygen via nasal canula, O2 level 91-93% on 4L NC
[2020-11-12] VITALS: BP 158/77; PULSE 70; RESP 20; TEMP 36.5; O2SAT 90
[2020-11-12] MEDS: ACETAMINOPHEN 500 MG TABLET PO ×2 (03:26→20:02)
[2020-11-12] MEDS: LEVOTHYROXINE SODIUM 75 MCG TABLET PO (05:36)
[2020-11-12 08:00] VITALS: BP 140/64; PULSE 74; RESP 20; TEMP 36.9; O2SAT 91
--- NOTE | 2020-11-12 08:30 | PM.IMPN ---
Subjective Date/time seen: 11/12/20 08:30 Objective Data Vital Signs Vital Signs: Vital Signs - 24 hr 11/11/20 10:53 11/11/20 15:48 11/11/20 20:00 Temperature 98 F Pulse Rate 71 Respiratory Rate 20 Blood Pressure 126/51 L Pulse Oximetry 90 95 91 11/12/20 00:00 11/12/20 08:00 Temperature 97.7 F 98.5 F Pulse Rate 70 74 Respiratory Rate 20 20 Blood Pressure 158/77 H 140/64 Pulse Oximetry 90 91 Intake/Output Intake/Output: Intake & Output 11/09/20 11/10/20 11/11/20 11/12/20 23:59 23:59 23:59 23:59 Intake Total 100 1050 200 Balance 100 1050 200 Meds/Results Medications: Active Medications Generic Name Dose Route Start Last Admin Trade Name Freq PRN Reason Stop Dose Admin Acetaminophen 500 mg 11/10/20 19:42 11/12/20 03:26 Acetaminophen 500 Mg Tablet PO 500 mg Q6H PRN Administration Pain Dexamethasone 6 mg 11/11/20 08:00 11/11/20 08:30 Dexamethasone 4 Mg Tablet PO 6 mg DAILY@0800 RUBÉN Administration Guaifenesin/Dextromethorphan 5 ml 11/11/20 15:22 Guaifenesin/Dextromethorphan 5 Ml Udc PO Q6H PRN Cough Levothyroxine Sodium 75 mcg 11/11/20 06:30 11/12/20 05:36 Levothyroxine Sodium 75 Mcg Tablet PO 75 mcg DAILY@0630 RUBÉN Administration Lidocaine 1 patch 11/11/20 09:00 11/11/20 09:29 Lidocaine 5% Patch TRANSDERM 1 patch DAILY RUBÉN Administration Simvastatin 10 mg 11/10/20 21:00 11/11/20 20:04 Simvastatin 10 Mg Tablet PO 10 mg HS RUBÉN Administration
[2020-11-12] MEDS: LIDOCAINE 5% PATCH 1 PATCH TRANSDERM (09:10)
[2020-11-12] MEDS: DEXAMETHASONE 4 MG TABLET 6 MG PO (09:10)
--- NOTE | 2020-11-12 09:47 | WPDPN ---
Progress Note: A&P Assessment and Plan (1) Lytic bone lesions on xray: Code(s): M89.9 - Disorder of bone, unspecified Status: Acute Assessment and Plan: 11/12/2020 at this time pain management seems to be doing well with the addition of lidocaine patch, patient states she was taking 1 g of Tylenol 3 times a day at home, her liver enzymes were elevated, currently 500 mg 4 times a day, her liver enzymes are decreasing, will monitor, renal function is good and may add NSAID if needed, outstanding immunology lab work per oncologist (2) COVID-19: Code(s): U07.1 - COVID-19 Status: Acute Assessment and Plan: 11/12/2020 documentation states patient's symptoms started 11/05/2020 and was tested positive for COVID 11/07/2020, patient is on supplemental oxygen, Decadron started 11/11/2020, radiology report indicates pneumonia likely viral (3) Hypothyroidism: Code(s): E03.9 - Hypothyroidism, unspecified Status: Chronic Assessment and Plan: 11/12/2020 continue levothyroxine (4) Hypercholesterolemia: Code(s): E78.00 - Pure hypercholesterolemia, unspecified Status: Chronic Assessment and Plan: 11/12/2020 continue simvastatin (5) Anemia of chronic disease: Code(s): D63.8 - Anemia in other chronic diseases classified elsewhere Status: Acute Assessment and Plan: 11/12/2020 current H/H 9.8/29.3, will continue to monitor (6) Physical deconditioning: Code(s): R53.81 - Other malaise Status: Acute Assessment and Plan: 11/12/2020 physical deconditioning related to COVID infection, PT/OT are to evaluate and treat, goal is to get patient stronger before she can go home and perform activities daily living Review of Systems Constitutional: Constitutional: Denies chills, Denies fever(s), Denies malaise and Denies weakness Cardiovascular: Cardiovascular: Denies chest pain, Denies chest pain at rest and Denies chest pain with activity Respiratory: Respiratory: Denies dyspnea and Denies dyspnea on exertion Comments: As noted in subjective above patient had shortness of breath in the morning when she was laying in bed but now that she is sitting up in her chair she has no complaints of shortness of breath. Gastrointestinal: Gastrointestinal: Reports no additional gastrointestinal complaints Musculoskeletal: Musculoskeletal: Reports back pain and Reports myalgias Comments: Patient states this has improved now that she is sitting in a chair Neurologic: Comments: admits to being hard of hearing and that she does not have her hearing aids Exam Narrative: Exam Narrative: following exam/assessment is with respect to after patient got out of bed and sitting in chair Const: General: cooperative, comfortable, no acute distress, alert and awake Nutritional Appearance: average body habitus Resp: Effort & Inspection: normal respiratory effort Auscultation: clear to auscultation bilaterally Cardio: Rate: regular rate Rhythm: regular rhythm Heart sounds: S1 normal heart sound present and S2 normal heart sound present GI: GI Palp: Yes Soft to palpation and No Tenderness to palpation present (GI) Auscultation: normal bowel sounds Neuro: General: oriented to person, oriented to place and oriented to time Cranial nerves: Yes CN's II-XII intact bilaterally (grossly intact) Cognition (Neuro): normal cognition Speech: normal speech Extrem: General: no pedal edema Objective Data Vital Signs Vital Signs: Vital Signs - 24 hr 11/11/20 10:53 11/11/20 15:48 11/11/20 20:00 Temperature 98 F Pulse Rate 71 Respiratory Rate 20 Blood Pressure 126/51 L Pulse Oximetry 90 95 91 11/12/20 00:00 11/12/20 08:00 Temperature 97.7 F 98.5 F Pulse Rate 70 74 Respiratory Rate 20 20 Blood Pressure 158/77 H 140/64 Pulse Oximetry 90 91 Intake/Output Intake/Output: Intake & Output 11/09/20 11/10/20 11/11/20 11/12/20 23:59 23:59 23:59 2
[2020-11-12 16:00] VITALS: BP 143/73; PULSE 86; RESP 18; TEMP 36.6; O2SAT 89
[2020-11-12 19:36] VITALS: O2SAT 90
[2020-11-12] MEDS: ALBUTEROL SULFATE (*SP) INHALER 2 PUFF INHALATION (20:01)
[2020-11-12] MEDS: SIMVASTATIN 10 MG TABLET PO (20:02)
[2020-11-13 00:25] VITALS: BP 157/77; PULSE 65; RESP 24; TEMP 36.2; O2SAT 81
--- NOTE | 2020-11-13 01:13 | PC.NURSE ---
0025 Pt. called this nurse for assistance, noted very diaphoretic and needing clothing and bed changed. Pt. placed in gown and new bed sheets changed. Pt. assisted back to bed and noted extremely SOB. Pt. SPO2 noted at 81%, pt. encouraged to use PLB and p 10 min. SPO2 still low 80's (approx. 84%). Lungs noted tight and diminished throughout. Pt. has a frequent cough that is somewhat productive of thick yellow phlegm. ERP/Hospitalist notified by charge nurse of pt. status, No new orders obtained. Upon reassessment p pt. resting for a while, note Spo2 increased to 93% on the 6L NC. Per ERP, will reevaluate pt. in AM and maybe change to Inpt. status.
--- NOTE | 2020-11-13 02:45 | ECG_ITS ---
Measurements Intervals Uriah Rate: 64 P: 64 CT: 137 QRS: -71 QRSD: 128 T: -5 QT: 417 QTc: 431 Interpretive Statements SINUS RHYTHM WITH SINUS ARRHYTHMIA POSSIBLE LEFT ATRIAL ENLARGEMENT LEFT AXIS DEVIATION RIGHT BUNDLE BRANCH BLOCK BASELINE ARTIFACT- I, II, AVR, AVL, AVF, V1-V6 ABNORMAL ECG Electronically Signed On 11-13-2020 13:42:37 BIOMEDICAL INSTRUMENT TECHNICIAN by Hiram Fernandez D.O.
--- NOTE | 2020-11-13 02:59 | PC.NURSE ---
Pt. changed to Inpatient status at this time from [facility]. Pt. called for help, this nurse in to assess pt and noted profuse diaphoresis again and pt. c/o sweating through her clothes. Pt. changed into dry clothing and linen. Pt. color is pale and extremities cool. Noted SPO2 79-81% on 6L. BP 120/77, HR 78. ERP notified of pt. change in status and ERP in to evaluate pt. New orders obtained. Call also placed to Cardiopulm continuous loft operator for order of High flow O2 therapy. IV started per order, pt. amanda well.
[2020-11-13] MEDS: methylPREDNISolone SOD SUCC 125 MG VIAL IV PUSH (03:08)
[2020-11-13] MEDS: SODIUM CHLORIDE 0.9% IV 1,000 ML 999 ML IV CONT (03:09)
[2020-11-13 03:28] LABS: Base Excess ABG 0.1 mmol/L (0-2); HCO3 ABG 23.1 mmol/L (23-29); Oxygen Content ABG 15.3 %vol (16.0-22.0); Oxygen Saturation ABG 92.5 % (95-97); Oxyhemoglobin 92.2 % (94-100); PO2 ABG 59.4 mmHg (75-85); Total Hemoglobin 11.8 g/dL; pH ABG 7.48 (7.35-7.45)
[2020-11-13 03:30] VITALS: PULSE 78; RESP 22; O2SAT 87
[2020-11-13 03:30] LABS: Hematocrit 31.7 % (35.0-42.0); Hemoglobin 10.2 g/dL (11.7-13.8); Mean Corpuscular HGB Conc 32.2 g/dL (32.0-36.0); Mean Corpuscular Volume 90.1 fL (78.0-102.0); Mean Platelet Volume 9.5 fl (9.2-11.8); Platelet Count Result 339 K/mm3 (150-420); Red Blood Count 3.52 M/mm3 (4.20-5.40); Red Cell Distribution Width 13.8 % (11.6-14.4); White Blood Count 9.3 K/mm3 (4.8-10.8)
[2020-11-13 03:32] LABS: Device NASAL CANNULA; Modified Allen's Test Pass; Site Drawn RIGHT RADIAL
[2020-11-13 03:40] VITALS: O2SAT 98
--- NOTE | 2020-11-13 03:40 | P.PNCROSS_ITS ---
Event Note Event Note Event Note: 84-year-old female was called to assess patient that I had decreased O2 saturations in the mid 70s and started on attendant L nasal cannula had ABGs, chest x-ray and blood work drawn, as well as a D-dimer. The patient recent transfer from [facility] with COVID approximately 10 days ago, currently is resting comfortably although she becomes short of breath with movement. Has some chills with no fevers, lung sounds are are slightly diminished, currently there is no chest pain. Review of chest x-ray shows improving pneumonia. Respiratory therapy was called in and play shunt was placed on high-flow oxygen and non-rebreather to keep sats in the above 90s currently her saturations are 90 to 92%.
[2020-11-13 03:44] LABS: Lactic Acid Reflex 1.5 mmol/L (0.4-2.0)
[2020-11-13 03:46] LABS: Alanine Aminotransferase 22 U/L (14-59); Albumin Level 2.5 g/dL (3.4-5.0); Alkaline Phosphatase 56 U/L (46-116); Anion Gap 10 mmol/L (8-16); Aspartate Amino Transferase 72 U/L (15-37); Bilirubin,Total 0.3 mg/dL (0.00-1.00); Blood Urea Nitrogen 24 mg/dL (7-18); Calcium 8.8 mg/dL (8.5-10.1); Carbon Dioxide 25 mmol/L (21-32); Chloride 100 mmol/L (98-108); Estimated CRCL calculation 30 ml/min; Estimated Glomerular Filt Rate 47; Glucose 131 mg/dL (70-99); Osmolality Calculated 286 mOsm/kg (285-295); Potassium 3.8 mmol/L (3.5-5.1); Sodium 135 mmol/L (136-145); Total Protein 8.5 g/dL (6.4-8.2); Troponin I 21.5 ng/L (0.00-60.4)
[2020-11-13 03:47] LABS: Band Neutrophils Percent 0 % (0-6); Basophils Percent Manual 0 % (0-1); Eosinophils Percent Manual 0 % (1-6); Lymphocytes Absolute Manual 1.02 K/mm3 (1.1-4.5); Lymphocytes Percent Manual 11 % (18-44); Monocytes Absolute Manual 0.46 K/mm3 (0.1-0.90); Monocytes Percent Manual 5 % (3-9); Neutrophils Absolute Manual 7.81 K/mm3 (1.7-7.2); Neutrophils Percent Manual 84 % (46-73); Platelet Estimate Adequate (Adequate); Total Cells Counted 100
[2020-11-13] MEDS: IPRATROPIUM 0.5 MG/ALBUTEROL SULFATE 2.5 MG AMPUL.NEB 3 ML INHALATION (03:50)
[2020-11-13 04:00] VITALS: O2SAT 94
[2020-11-13 04:20] LABS: D Dimer 20.46 mg/L (0.19-0.50)
--- NOTE | 2020-11-13 05:27 | PC.NURSE ---
Pt. returns from CT, Pt. on high flow O2 via NC and Spo2 noted 93%. Pt. resting, c/o feeling very weak. Awaiting CT report.
--- NOTE | 2020-11-13 05:55 | PC.NURSE ---
Chest CTA report back, informed ERP Dr. Alston of results. No new orders at this time. Will watch and evaluate while on High flow O2. Pt. resting at this time c O2 in place and Spo2 at 93-96%.
[2020-11-13] MEDS: ALBUTEROL SULFATE (*SP) INHALER 2 PUFF INHALATION (06:32)
[2020-11-13] MEDS: LEVOTHYROXINE SODIUM 75 MCG TABLET PO (06:32)
--- NOTE | 2020-11-13 08:48 | PM.DS ---
DS: Admitting Diagnosis Admitting Diagnosis Admitting Diagnosis: COVID DS: Discharge Diagnosis Discharge Diagnosis (1) Lytic bone lesions on xray: Code(s): M89.9 - Disorder of bone, unspecified Status: Acute Assessment and Plan: 11/12/2020 at this time pain management seems to be doing well with the addition of lidocaine patch, patient states she was taking 1 g of Tylenol 3 times a day at home, her liver enzymes were elevated, currently 500 mg 4 times a day, her liver enzymes are decreasing, will monitor, renal function is good and may add NSAID if needed, outstanding immunology lab work per oncologist (2) COVID-19: Code(s): U07.1 - COVID-19 Status: Acute Assessment and Plan: 11/12/2020 documentation states patient's symptoms started 11/05/2020 and was tested positive for COVID 11/07/2020, patient is on supplemental oxygen, Decadron started 11/11/2020, radiology report indicates pneumonia likely viral (3) Hypothyroidism: Code(s): E03.9 - Hypothyroidism, unspecified Status: Chronic Assessment and Plan: 11/12/2020 continue levothyroxine (4) Hypercholesterolemia: Code(s): E78.00 - Pure hypercholesterolemia, unspecified Status: Chronic Assessment and Plan: 11/12/2020 continue simvastatin (5) Anemia of chronic disease: Code(s): D63.8 - Anemia in other chronic diseases classified elsewhere Status: Acute Assessment and Plan: 11/12/2020 current H/H 9.8/29.3, will continue to monitor (6) Physical deconditioning: Code(s): R53.81 - Other malaise Status: Acute Assessment and Plan: 11/12/2020 physical deconditioning related to COVID infection, PT/OT are to evaluate and treat, goal is to get patient stronger before she can go home and perform activities daily living DS: Summary Time Spent with Patient Time attestation: Total time spent providing and/or coordinating discharge services: Unknown, Discharge was done at 0245. I was not in the hospital at that time. Exam Narrative: Exam Narrative: I did not evaluate this person at 0245 on 11/13/2020 as I was at home. During report this AM I was informed by Dr. Alston that the Pt had increased oxygen demand and ended up on high flow NC which was a concern he and I discussed at the end of shift, 1500 hours, yesterday. DS: Data Data Completed and Pending Labs on day of discharge: Labs from last 24 hours 11/13/20 11/13/20 11/13/20 03:21 03:21 03:21 WBC RBC Hgb Hct MCV MCH MCHC RDW Plt Count MPV Immature Gran % (Auto) Neut % (Auto) Lymph % (Auto) [place] % (Auto) Eos % (Auto) Baso % (Auto) Lymph # (Auto) [place] # (Auto) Eos # (Auto) Baso # (Auto) Abs Immat Gran (auto) Absolute Neuts (auto) Absolute Nucleated RBC Total Counted Neutrophils % (Manual) Band Neutrophils % Lymphocytes % (Manual) Monocytes % (Manual) Eosinophils % (Manual) Basophils % (Manual) Nucleated RBC % Abs Neuts (Manual) Abs Lymphs (Manual) Abs Monocytes (Manual) Absolute Eos (Manual) Abs Basophils (Manual) Platelet Estimate D-Dimer 20.46 H* Puncture Site ABG pH ABG pCO2 ABG pO2 ABG PO2/FiO2 Ratio ABG HCO3 ABG O2 Saturation ABG O2 Content ABG Base Excess A-a Gradient Oxyhemoglobin Total Hemoglobin O2 Delivery Device O2 Liters/Min FiO2 Sodium Potassium Chloride Carbon Dioxide Anion Gap BUN Creatinine Estim Creat Clear Calc Estimated GFR Glucose Calculated Osmolality Lactic Acid 1.5 Calcium Total Bilirubin AST ALT Alkaline Phosphatase Troponin I 21.5 Total Protein Albumin 11/13/20 11/13/20 11/13/20 03:21 03:21 03:21 WBC 9.3 RBC 3.52 L Hgb 10.2 L Hct 31.7 L MCV 90.1 MCH 29.0 MCHC 32.2 RDW 13.8 Plt Count 339 MPV
== END 2020-11-13 02:45 | disposition critical access hospital (66) | DRG 177 ==
PROVIDERS: Admitting Provider Emergency Medicine; PCP Internal Medicine; Visit Provider Emergency Medicine
DX: U07.1 COVID-19 (principal); J12.89 Other viral pneumonia; D63.8 Anemia in other chronic diseases classified elsewhere; E03.9 Hypothyroidism, unspecified; I10 Essential (primary) hypertension; M89.9 Disorder of bone, unspecified; E78.00 Pure hypercholesterolemia, unspecified; H26.9 Unspecified cataract
CPT/HCPCS: 36415; 36600; 71045; 71275; 80053; 82805; 83605; 84484; 85025; 85380; 87040; 93005; 94640; 97110; 97161; 97165; 97530; A9270; J2930; J7030; J8540; Q9965; Q9967

== ENCOUNTER 2020-11-13 02:46 | Inpatient (IN) | payer MEDICARE, SELFPAY ==
--- NOTE | ~2020-11-13 | XR_ITS ---
EXAMINATION: XR chest 1V portable DATE: 11/16/2020 05:34 INDICATION: COVID-19 pneumonia. TECHNIQUE: A single frontal view of the chest was obtained. COMPARISON: Chest single view 11/13/2020, chest CT 11/13/2020 FINDINGS: There are airspace opacities in all lung zones bilaterally, worse in the upper lobes. No pl eural effusion or pneumothorax. The heart size is normal. IMPRESSION: 1. Worsened diffuse lung disease, consistent with pneumonia. Reviewed, dictated and finalized at location A. RGLASS ROLLER
--- NOTE | 2020-11-13 03:00 | ADMGEN ---
This patient, Beverly Linares, was admitted to 2nd Floor Room 211-1. She was changed from a SSB to Inpatient status at 0245 due to deteriorating Spo2 status. Patient/family oriented to hospital policies and general routines including ID bracelet, bed and alarms, visiting hours, pain management, procedures, bathroom and other care routines, personal items, smoking policy, room service/diet, and visiting hours. Information on how to activate the Rapid Response Team has been discussed. Call mensah in reach of pt. Patient/Family are encouraged to report perceived risks to care and to ask questions if they do not understand what they are told or what they should do.
[2020-11-13 03:30] VITALS: BMI 23.0
--- NOTE | 2020-11-13 05:27 | PC.NURSE ---
pt. setup for Highflow O2 therapy per Resp. Therapy. Pt.highflow settings at 55L and 77%Fio2. Pt. responded well. Pt.was taken to CT for CTA chest due to elevated Ddimer results. Pts. Spo2 reading 93% on Highflow and pt. amanda. well. Awaiting CT results.
--- NOTE | 2020-11-13 05:55 | PC.NURSE ---
Pts. CTA chest report back and ERP Dr. Alston informed of results. No new orders at this time. POC to watch and evaluate pts. condition on High flow O2 therapy. Pt. resting at this time c Spo2 at 93-96%.
[2020-11-13 08:00] VITALS: BP 141/68; PULSE 70; RESP 18; TEMP 36.4; O2SAT 96
--- NOTE | 2020-11-13 08:57 | PM.IMHP ---
H&P: HPI History of Present Illness Date/Time: 11/13/20 08:57 Chief complaint: rehab Narrative: Beverly Linares is a 84 year old female he was being transferred into an inpatient bed from swing bed due to increased oxygen demand requiring high-flow nasal cannula currently with an FiO2 of 76 which maintains her saturation 90% and up. Patient was at an outside facility and was found that her symptoms started at 11/05/2020 and tested positive for COVID 11/07/2020. Data from the transferring hospital indicated patient did not have increased oxygen demand and therefore Remdesivir was not started however patient was taking Decadron which was started 11/11/2020. Shortly after arriving at this facility patient did require supplemental oxygen and deteriorate to the point where she required high-flow nasal cannula as mentioned above. Review of Systems Constitutional: Constitutional: Reports no additional constitutional complaints, Denies body ache(s), Reports chills (But patient does say she feels cold), Denies fever(s) and Denies headache(s) Cardiovascular: Cardiovascular: Reports no additional cardiovascular complaints, Denies chest pain, Denies chest pain at rest and Denies chest pain with activity Respiratory: Respiratory: Reports dyspnea and Reports dyspnea on exertion Gastrointestinal: Gastrointestinal: Reports no additional gastrointestinal complaints Neurologic: Reports system reviewed and no additional complaints, except as documented PMFSH Past Medical History Medical History Bilateral cataracts COVID-19 Hypercholesterolemia Hypothyroidism Lytic bone lesions on xray Surgical History Surgical History H/O bilateral cataract extraction H/O hemorrhoidectomy History of removal of pigmented skin lesion Previous back surgery Family History Family History Mother Family history of malignant neoplasm Carcinoma of colon Father No problems noted. Sibling Cancer Brother leukemia and another brother with another type of can Dementia 1 brother Social History Social History Social History: The patient has 3 sons. There durable power sports attorney for healthcare. The patient is a full code. She lives home alone she is . 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 Smoking status: Never smoker Second hand tobacco smoke exposure: No Smoking end date: 12/02/1955 Alcohol intake: current Substance use: never Substance use type: does not use Gender identity (if verbalized by the patient): Female Spiritual care concerns: No Meds Home Medications and Allergies Home Medications Medication Instructions Recorded Confirmed Type acetaminophen 500 mg PO Q6H PRN 11/09/20 11/13/20 History levothyroxine 75 mcg PO DAILY 11/09/20 11/13/20 History simvastatin 10 mg PO HS 11/09/20 11/13/20 History dexamethasone 6 mg PO DAILY #9 tablet 11/10/20 11/13/20 Rx Allergies Allergy/AdvReac Type Severity Reaction Status Date / Time No Known Allergies Allergy Unknown Verified 11/09/20 15:11 Exam Const: General: cooperative, comfortable (most of the time), no acute distress, alert and awake Resp: Effort & Inspection: labored (once in awhile when she takes her high-flow nasal cannula off) Auscultation: clear to auscultation bilaterally Cardio: Rate: regular rate Rhythm: regular rhythm Heart sounds: S1 normal heart sound present and S2 normal heart sound present GI: GI Palp: Yes Soft to palpation and No Tenderness to palpation present (GI) Auscultation: normal bowel sounds Neuro: General: oriented to person, oriented to place and oriented to time Cranial nerves: Yes CN's II-XII intact bilatera
[2020-11-13 09:22] VITALS: PULSE 86; RESP 18; O2SAT 96
[2020-11-13] MEDS: LIDOCAINE 5% PATCH 1 PATCH TRANSDERM (11:43)
[2020-11-13] MEDS: DEXAMETHASONE 2 MG TABLET 6 MG PO (11:43)
[2020-11-13] MEDS: LEVOTHYROXINE SODIUM 75 MCG TABLET PO (11:43)
[2020-11-13] MEDS: ENOXAPARIN 40 MG/0.4 ML SYRINGE SUB-Q (11:44)
[2020-11-13] MEDS: ALBUTEROL SULFATE (*SP) INHALER 2 PUFF INHALATION ×3 (11:44→20:35)
[2020-11-13 12:00] VITALS: BP 141/76; PULSE 76; RESP 18; TEMP 36.2; O2SAT 97
[2020-11-13 16:00] VITALS: BP 155/79; PULSE 86; RESP 20; TEMP 36.8; O2SAT 96
[2020-11-13 20:00] VITALS: BP 166/75; PULSE 64; RESP 20; TEMP 36.1; O2SAT 96
[2020-11-13] MEDS: ACETAMINOPHEN 500 MG TABLET PO (20:34)
[2020-11-13] MEDS: SIMVASTATIN 10 MG TABLET PO (20:34)
[2020-11-13 23:35] VITALS: BP 170/88; PULSE 65; RESP 20; TEMP 36.5; O2SAT 97
--- NOTE | 2020-11-13 23:40 | PC.NURSE ---
Upon assessment per this RN, pt. called wanting her nightgown and bedding changed. Pt. is diaphoretic and sweating, linen and clothing changed per pt. request. Pt. is A&O x3 Spo2 noted at 97% and RR even and nonlabored.
--- NOTE | 2020-11-14 03:30 | PC.NURSE ---
Pt. sleeping, resting comfortably, no distress noted, High flow O2 in place.
[2020-11-14 04:00] VITALS: BP 137/60; PULSE 68; RESP 20; TEMP 36.4; O2SAT 95
[2020-11-14] MEDS: ALBUTEROL SULFATE (*SP) INHALER 2 PUFF INHALATION ×4 (06:09→21:42)
[2020-11-14 06:31] LABS: Hematocrit 30.2 % (35.0-42.0); Hemoglobin 9.8 g/dL (11.7-13.8); Mean Corpuscular HGB Conc 32.5 g/dL (32.0-36.0); Mean Corpuscular Hemoglobin 28.7 pg (27.0-31.0); Mean Corpuscular Volume 88.6 fL (78.0-102.0); Mean Platelet Volume 9.8 fl (9.2-11.8); Platelet Count Result 367 K/mm3 (150-420); Red Blood Count 3.41 M/mm3 (4.20-5.40); Red Cell Distribution Width 13.7 % (11.6-14.4); White Blood Count 10.5 K/mm3 (4.8-10.8)
[2020-11-14 06:42] LABS: Anion Gap 9 mmol/L (8-16); Blood Urea Nitrogen 28 mg/dL (7-18); Calcium 8.8 mg/dL (8.5-10.1); Carbon Dioxide 23 mmol/L (21-32); Chloride 103 mmol/L (98-108); Estimated CRCL calculation 33 ml/min; Estimated Glomerular Filt Rate 54; Glucose 129 mg/dL (70-99); Osmolality Calculated 287 mOsm/kg (285-295); Sodium 135 mmol/L (136-145)
[2020-11-14 07:09] LABS: Band Neutrophils Percent 0 % (0-6); Eosinophils Percent Manual 0 % (1-6); Lymphocytes Absolute Manual 1.47 K/mm3 (1.1-4.5); Lymphocytes Percent Manual 14 % (18-44); Monocytes Absolute Manual 1.05 K/mm3 (0.1-0.90); Monocytes Percent Manual 10 % (3-9); Neutrophils Absolute Manual 7.98 K/mm3 (1.7-7.2); Neutrophils Percent Manual 76 % (46-73); Platelet Estimate Adequate (Adequate); Total Cells Counted 100
--- NOTE | 2020-11-14 07:53 | PM.IMPN ---
Progress Note: A&P Assessment and Plan (1) Lytic bone lesions on xray: Code(s): M89.9 - Disorder of bone, unspecified <Abelino Colin GROUTER HELPER-C - Last Filed: 11/14/20 11:19> Status: Acute <Abelino Colin GROUTER HELPER-C - Last Filed: 11/14/20 11:19> Assessment and Plan: 11/13/2020 oncologist was consulted at the previous facility and as of now immunology studies are pending 11/14/2020 Dr. Orlin Ontiveros, Oncologist, has ordered testing for multiple myeloma including serum protein electrophoresis with immunofixation, quantitative immunoglobulin and serum free light chain studies which remain pending at this time, Pt is to follow up with Dr. Ontiveros 1 week after DC from hospital. <Abelino Colin GROUTER HELPER-C - Last Filed: 11/14/20 11:19> (2) Physical deconditioning: Code(s): R53.81 - Other malaise <Abelino Colin GROUTER HELPER-C - Last Filed: 11/14/20 11:19> Status: Acute <Abelino Colin GROUTER HELPER-C - Last Filed: 11/14/20 11:19> Assessment and Plan: 11/13/2020 patient was working with physical therapy and occupational therapy however this will need to be temporarily suspended until patient's respiratory status improves 11/14/2020 Pt is making a little progress with her respiratory status but still has decreased SpO2 with walking 2 steps to the BSC. <Abelino Colin GROUTER HELPER-C - Last Filed: 11/14/20 11:19> (3) Anemia of chronic disease: Code(s): D63.8 - Anemia in other chronic diseases classified elsewhere <Abelino Colin GROUTER HELPER-C - Last Filed: 11/14/20 11:19> Status: Acute <Abelino Colin GROUTER HELPER-C - Last Filed: 11/14/20 11:19> Assessment and Plan: 11/13/2020 at this time H/H is 10.2/31.7, will continue to monitor, transfuse if hemoglobin drops below 7 11/14/2020 H/H 9.8/30.2 today, stable <MATTHEW RodasC - Last Filed: 11/14/20 11:19> (4) COVID-19: Code(s): U07.1 - COVID-19 <VALENTE Rodas - Last Filed: 11/14/20 11:19> Status: Acute <MATTHEW RodasC - Last Filed: 11/14/20 11:19> Assessment and Plan: 11/13/2020 symptoms started 11/05/2020 and tested positive 11/07/2020, currently high-flow nasal cannula with FiO2 76, Decadron started 11/11/2020, radiology report indicates pneumonia likely viral, will monitor patient closely, patient has been on hospital isolation for COVID since 11/09/2020 11/14/2020 no change in high-flow nasal cannula settings remain with an FiO2 at 76% in patient's SpO2 98% while at rest in a chair eating breakfast, Remdesivir started today 11/14/2020 <VALENTE Rodas - Last Filed: 11/14/20 11:19> (5) Hypothyroidism: Code(s): E03.9 - Hypothyroidism, unspecified <Abelino Colin APN-C - Last Filed: 11/14/20 11:19> Status: Chronic <VALENTE Rodas - Last Filed: 11/14/20 11:19> Assessment and Plan: 11/13/2020 continue levothyroxine 75 mcg daily 11/14/2020 Continued <VALENTE Rodas - Last Filed: 11/14/20 11:19> (6) Hypercholesterolemia: Code(s): E78.00 - Pure hypercholesterolemia, unspecified <MATTHEW RodasC - Last Filed: 11/14/20 11:19> Status: Chronic <VALENTE Rodas - Last Filed: 11/14/20 11:19> Assessment and Plan: 11/13/2020 continue simvastatin 10 mg HS 11/14/2020 Continued <Abelino Colin APN-C - Last Filed: 11/14/20 11:19> Subjective Date/time seen: 11/14/20 07:53 Patient states her breathing is feeling good today. She does complain of the high-flow nasal cannula prongs rubbing on her nose. Complains of decreased appetite though she does not have much activity due to her increased oxygen demand. Patient denies any chest pain abdominal pain difficulty with urination. Does complain of shortness of breath with standing moving to bedside commode. <Abelino Colin, KEILY-C - Last Filed: 11/14/20 11:19> Review of Systems Constitutional: Constitutional: Reports weakn
[2020-11-14 08:00] VITALS: BP 161/74; PULSE 76; RESP 18; TEMP 36.4; O2SAT 96
[2020-11-14] MEDS: DEXAMETHASONE 2 MG TABLET 6 MG PO (09:13)
[2020-11-14] MEDS: LEVOTHYROXINE SODIUM 75 MCG TABLET PO (09:15)
[2020-11-14] MEDS: ENOXAPARIN 40 MG/0.4 ML SYRINGE SUB-Q (09:15)
[2020-11-14] MEDS: LIDOCAINE 5% PATCH 1 PATCH TRANSDERM (09:15)
[2020-11-14 12:00] VITALS: BP 125/61; PULSE 76; RESP 20; TEMP 36.6; O2SAT 99
[2020-11-14] MEDS: REMDESIVIR 200 MG/NS 250 ML 200 MG/250 ML BAG 250 MG IVPB (12:34)
[2020-11-14 16:00] VITALS: BP 156/70; PULSE 70; RESP 18; TEMP 36.6; O2SAT 94
[2020-11-14 20:00] VITALS: BP 148/80; PULSE 66; RESP 18; TEMP 36.6; O2SAT 96
[2020-11-14] MEDS: SIMVASTATIN 10 MG TABLET PO (21:42)
[2020-11-15] VITALS (8 sets, daily range): BP systolic 140–182; BP diastolic 72–79; PULSE 70–85; RESP 18–24; TEMP 36.3–37; O2SAT 88–98
--- NOTE | 2020-11-15 02:03 | PC.NURSE ---
Patient c/o high flow oxygen blowing and going crazy Settings checked and at recommended level. SPO sats at 80 on room air.
[2020-11-15 05:46] LABS: Basophils Absolute Auto 0.01 K/mm3 (0.00-0.10); Basophils Percent Auto 0.1 % (0.0-1.0); Hematocrit 28.3 % (35.0-42.0); Hemoglobin 9.1 g/dL (11.7-13.8); Immature Granulocyte Absolute 0.05 K/mm3 (0.00-0.00); Immature Granulocyte Percent A 0.5 % (0.0-0.0); Lymphocytes Absolute Auto 1.07 K/mm3 (1.10-4.50); Mean Corpuscular HGB Conc 32.2 g/dL (32.0-36.0); Mean Corpuscular Hemoglobin 28.5 pg (27.0-31.0); Mean Corpuscular Volume 88.7 fL (78.0-102.0); Mean Platelet Volume 9.7 fl (9.2-11.8); Monocytes Absolute Auto 0.59 K/mm3 (0.10-0.90); Neutrophils Absolute Auto 8.1 K/mm3 (1.7-7.2); Neutrophils Percent Auto 82.4 % (50.0-70.0); Platelet Count Result 368 K/mm3 (150-420); Red Blood Count 3.19 M/mm3 (4.20-5.40); Red Cell Distribution Width 13.5 % (11.6-14.4); White Blood Count 9.8 K/mm3 (4.8-10.8)
[2020-11-15 06:02] LABS: Alanine Aminotransferase 22 U/L (14-59); Anion Gap 9 mmol/L (8-16); Blood Urea Nitrogen 29 mg/dL (7-18); Calcium 8.3 mg/dL (8.5-10.1); Carbon Dioxide 24 mmol/L (21-32); Chloride 104 mmol/L (98-108); Estimated CRCL calculation 35 ml/min; Estimated Glomerular Filt Rate 58; Glucose 81 mg/dL (70-99); Osmolality Calculated 288 mOsm/kg (285-295); Potassium 3.8 mmol/L (3.5-5.1); Sodium 137 mmol/L (136-145)
[2020-11-15] MEDS: ALBUTEROL SULFATE (*SP) INHALER 2 PUFF INHALATION ×4 (06:35→20:29)
--- NOTE | 2020-11-15 08:16 | PM.IMPN ---
Progress Note: A&P Assessment and Plan (1) Lytic bone lesions on xray: Code(s): M89.9 - Disorder of bone, unspecified Status: Acute Assessment and Plan: 11/13/2020 oncologist was consulted at the previous facility and as of now immunology studies are pending 11/14/2020 Dr. Orlin Ontiveros, Oncologist, has ordered testing for multiple myeloma including serum protein electrophoresis with immunofixation, quantitative immunoglobulin and serum free light chain studies which remain pending at this time, Pt is to follow up with Dr. Ontiveros 1 week after DC from hospital. 11/15/2020 results still pending, once they are available I will forward to Dr. Ontiveros, patient takes Tylenol for pain, liver enzymes have been decreasing, will not increase Tylenol, low-dose OxyContin 2.5 mg Q6H p.r.n. (2) Physical deconditioning: Code(s): R53.81 - Other malaise Status: Acute Assessment and Plan: 11/13/2020 patient was working with physical therapy and occupational therapy however this will need to be temporarily suspended until patient's respiratory status improves 11/14/2020 Pt is making a little progress with her respiratory status but still has decreased SpO2 with walking 2 steps to the BSC. 11/15/2020 will continue PT once patient's oxygen demand improves (3) Anemia of chronic disease: Code(s): D63.8 - Anemia in other chronic diseases classified elsewhere Status: Acute Assessment and Plan: 11/13/2020 at this time H/H is 10.2/31.7, will continue to monitor, transfuse if hemoglobin drops below 7 11/14/2020 H/H 9.8/30.2 today, stable 11/15/2020 H/H 9.1/28.3, continue to monitor (4) COVID-19: Code(s): U07.1 - COVID-19 Status: Acute Assessment and Plan: 11/13/2020 symptoms started 11/05/2020 and tested positive 11/07/2020, currently high-flow nasal cannula with FiO2 76, Decadron started 11/11/2020, radiology report indicates pneumonia likely viral, will monitor patient closely, patient has been on hospital isolation for COVID since 11/09/2020 11/14/2020 no change in high-flow nasal cannula settings remain with an FiO2 at 76% in patient's SpO2 98% while at rest in a chair eating breakfast, Remdesivir started today 11/14/2020 11/15/2020 no change from yesterday (5) Hypothyroidism: Code(s): E03.9 - Hypothyroidism, unspecified Status: Chronic Assessment and Plan: 11/13/2020 continue levothyroxine 75 mcg daily 11/14/2020 Continued 11/15/2020 no change (6) Hypercholesterolemia: Code(s): E78.00 - Pure hypercholesterolemia, unspecified Status: Chronic Assessment and Plan: 11/13/2020 continue simvastatin 10 mg HS 11/14/2020 Continued 11/15/2020 no change Subjective Date/time seen: 11/15/20 08:16 patient was unable to tell me whether her breathing has improved her staying the same. Patient is a little worried about her condition. She also says she has a decreased appetite. She denies any chest pain abdominal issues no difficulty with excretion. Review of Systems Constitutional: Constitutional: Reports no additional constitutional complaints and Reports weakness Cardiovascular: Cardiovascular: Denies chest pain, Denies chest pain at rest and Denies chest pain with activity Respiratory: Respiratory: Reports dyspnea on exertion Gastrointestinal: Gastrointestinal: Reports no additional gastrointestinal complaints Neurologic: Reports system reviewed and no additional complaints, except as documented Exam Const: General: cooperative, comfortable, no acute distress, alert and awake Resp: Effort & Inspection: normal respiratory effort Auscultation: clear to auscultation bilaterally Cardio: Rate: regular rate Heart sounds: S1 normal heart sound present and S2 normal heart sound present GI: GI Palp: Yes Soft to palpation and No Tenderness to palpation present (GI) Auscultation: normal bowel sounds Neuro: General: oriented to person, orient
--- NOTE | 2020-11-15 09:09 | PM.EVENT ---
Event Note Event Note Event Note: patient was a swing patient and admit orders Were placed. Patient was discharged from swing and admitted to inpatient.
[2020-11-15] MEDS: ACETAMINOPHEN 500 MG TABLET PO ×2 (09:28→17:40)
[2020-11-15] MEDS: guaiFENesin/DEXTROMETHORPHAN 5 ML UDC PO (09:28)
[2020-11-15] MEDS: LIDOCAINE 5% PATCH 1 PATCH TRANSDERM (09:29)
[2020-11-15] MEDS: LEVOTHYROXINE SODIUM 75 MCG TABLET PO (09:29)
[2020-11-15] MEDS: DEXAMETHASONE 2 MG TABLET 6 MG PO (09:29)
[2020-11-15] MEDS: ENOXAPARIN 40 MG/0.4 ML SYRINGE SUB-Q (09:29)
[2020-11-15] MEDS: REMDESIVIR 100 MG/NS 250 ML 100 MG/250 ML BAG 250 MG IVPB (12:22)
[2020-11-15] MEDS: SIMVASTATIN 10 MG TABLET PO (20:30)
--- NOTE | 2020-11-15 23:02 | PC.NURSE ---
Respiratory in room and adjusted high flow changed to 80% from 75% now pt sat is 91%
[2020-11-16 03:45] VITALS: BP 159/93; PULSE 81; RESP 22; TEMP 36.3; O2SAT 94
[2020-11-16] MEDS: ALBUTEROL SULFATE (*SP) INHALER 2 PUFF INHALATION ×4 (05:39→21:22)
[2020-11-16] MEDS: LEVOTHYROXINE SODIUM 75 MCG TABLET PO (05:40)
[2020-11-16 06:00] LABS: Basophils Absolute Auto 0.01 K/mm3 (0.00-0.10); Basophils Percent Auto 0.1 % (0.0-1.0); Eosinophils Absolute Auto 0.02 K/mm3 (0.02-0.50); Eosinophils Percent Auto 0.2 % (1.0-6.0); Hematocrit 31.3 % (35.0-42.0); Hemoglobin 10.3 g/dL (11.7-13.8); Immature Granulocyte Absolute 0.08 K/mm3 (0.00-0.00); Immature Granulocyte Percent A 0.7 % (0.0-0.0); Lymphocytes Absolute Auto 1.73 K/mm3 (1.10-4.50); Lymphocytes Percent Auto 15.2 % (18.0-42.0); Mean Corpuscular HGB Conc 32.9 g/dL (32.0-36.0); Mean Corpuscular Hemoglobin 28.8 pg (27.0-31.0); Mean Corpuscular Volume 87.4 fL (78.0-102.0); Mean Platelet Volume 9.8 fl (9.2-11.8); Monocytes Absolute Auto 0.57 K/mm3 (0.10-0.90); Neutrophils Percent Auto 78.8 % (50.0-70.0); Platelet Count Result 400 K/mm3 (150-420); Red Blood Count 3.58 M/mm3 (4.20-5.40); Red Cell Distribution Width 13.5 % (11.6-14.4); White Blood Count 11.4 K/mm3 (4.8-10.8)
[2020-11-16 06:23] LABS: Alanine Aminotransferase 20 U/L (14-59); Anion Gap 10 mmol/L (8-16); Blood Urea Nitrogen 24 mg/dL (7-18); Calcium 8.5 mg/dL (8.5-10.1); Carbon Dioxide 23 mmol/L (21-32); Chloride 100 mmol/L (98-108); Estimated CRCL calculation 35 ml/min; Estimated Glomerular Filt Rate 57; Glucose 92 mg/dL (70-99); Osmolality Calculated 280 mOsm/kg (285-295); Potassium 4.1 mmol/L (3.5-5.1); Sodium 133 mmol/L (136-145)
[2020-11-16 08:00] VITALS: BP 162/82; PULSE 91; RESP 16; TEMP 37.5; O2SAT 91
[2020-11-16] MEDS: LIDOCAINE 5% PATCH 1 PATCH TRANSDERM (09:37)
[2020-11-16] MEDS: ENOXAPARIN 40 MG/0.4 ML SYRINGE SUB-Q (09:37)
[2020-11-16] MEDS: DEXAMETHASONE 2 MG TABLET 6 MG PO (09:46)
--- NOTE | 2020-11-16 11:12 | P.PN_ITS ---
Progress Note: A&P Assessment and Plan (1) Physical deconditioning: Code(s): R53.81 - Other malaise <Gloria Walter MANAGER REPORT-C - Last Filed: 11/16/20 11:42> Status: Acute <Gloria Walter MANAGER REPORT-C - Last Filed: 11/16/20 11:42> Assessment and Plan: * Patient was a swing bed patient due to increased need for supplementary oxygen patient transition to inpatient <SUMMER CruzP-C - Last Filed: 11/16/20 11:42> (2) Anemia of chronic disease: Code(s): D63.8 - Anemia in other chronic diseases classified elsewhere <SMUMER CruzP-C - Last Filed: 11/16/20 11:42> Status: Acute <Gloria Walter MANAGER REPORT-C - Last Filed: 11/16/20 11:42> Assessment and Plan: * Patient H&H improved from yesterday currently 10.3 and 31.3 * Will start iron supplement * Monitor H&H <SUMMER CruzP-C - Last Filed: 11/16/20 11:42> (3) Lytic bone lesions on xray: Code(s): M89.9 - Disorder of bone, unspecified <SUMMER CruzP-C - Last Filed: 11/16/20 11:42> Status: Acute <Gloria Walter MANAGER REPORT-C - Last Filed: 11/16/20 11:42> Assessment and Plan: * Seen by Dr. Ontiveros partition assembler/oncologist * Ruling out multiple myeloma * Oncology consulted at previous hospital, immunology studies pending * Will follow up with Dr. Ontiveros after 1 week after discharge <Gloria Walter MANAGER REPORT-C - Last Filed: 11/16/20 11:42> (4) COVID-19: Code(s): U07.1 - COVID-19 <Gloria Walter MANAGER REPORT-C - Last Filed: 11/16/20 11:42> Status: Acute <Gloria Walter MANAGER REPORT-C - Last Filed: 11/16/20 11:42> Assessment and Plan: * Patient tested 11/07/2020, off quarantine 1216 * Continue remdesivir started 11/14/2020 and dexamethasone * Patient currently on 50 L high flow satting in the 90s * X-ray worsening * Blood cultures no growth * CTA negative for PE * Lactic acid within normal limits <Gloria WalterSHARATH - Last Filed: 11/16/20 11:42> (5) Hypothyroidism: Code(s): E03.9 - Hypothyroidism, unspecified <Gloria WalterSHARATH - Last Filed: 11/16/20 11:42> Status: Chronic <Gloria WalterSHARATH - Last Filed: 11/16/20 11:42> Assessment and Plan: * Continue Synthroid 75 mg daily <Mendelramya Lisa SHARATH Walter - Last Filed: 11/16/20 11:42> (6) Hypercholesterolemia: Code(s): E78.00 - Pure hypercholesterolemia, unspecified <Mendelramya YoniSHARATH Reyna - Last Filed: 11/16/20 11:42> Status: Chronic <Gloria Gonzalez SHARATH Walter - Last Filed: 11/16/20 11:42> Assessment and Plan: * Continue statins <MendelSHARATH Smith - Last Filed: 11/16/20 11:42> (7) Elevated blood pressure reading: Code(s): R03.0 - Elevated blood-pressure reading, without diagnosis of hypertension <Mendelramya YoniSHARATH Reyna - Last Filed: 11/16/20 11:42> Status: Acute <Mendelramya Lisa SHARATH Walter - Last Filed: 11/16/20 11:42> Assessment and Plan: * Patient's blood pressure has been elevated since admission 162/82 * Will start Norvasc 5 mg * Continue vital signs as ordered Will adjust medication as needed <SHARATH Cruz - Last Filed: 11/16/20 11:42> Review of Systems Review of Systems: All systems reviewed & are unremarkable except as noted in HPI and below (10 point system review) <Gloria YoniSHARATH Reyna - Last Filed: 11/16/20 11:42> Exam Narrative: Exam Narrative: GENERAL: This is a well-nourished, well-developed patient, in no apparent distress. HEAD: normocephalic, atraumatic. EYES:
--- NOTE | 2020-11-16 11:12 | WPDPN ---
Progress Note: A&P Assessment and Plan (1) Physical deconditioning: Code(s): R53.81 - Other malaise <Gloria Walter INTERLIBRARY LOAN SPECIALIST-C - Last Filed: 11/16/20 11:42> Status: Acute <Gloria Walter INTERLIBRARY LOAN SPECIALIST-C - Last Filed: 11/16/20 11:42> Assessment and Plan: Patient was a swing bed patient due to increased need for supplementary oxygen patient transition to inpatient <Gloria Walter INTERLIBRARY LOAN SPECIALIST-C - Last Filed: 11/16/20 11:42> (2) Anemia of chronic disease: Code(s): D63.8 - Anemia in other chronic diseases classified elsewhere <Gloria Walter INTERLIBRARY LOAN SPECIALIST-C - Last Filed: 11/16/20 11:42> Status: Acute <Gloria Walter INTERLIBRARY LOAN SPECIALIST-C - Last Filed: 11/16/20 11:42> Assessment and Plan: Patient H&H improved from yesterday currently 10.3 and 31.3 Will start iron supplement Monitor H&H <Gloria Walter INTERLIBRARY LOAN SPECIALIST-C - Last Filed: 11/16/20 11:42> (3) Lytic bone lesions on xray: Code(s): M89.9 - Disorder of bone, unspecified <SUMMER CruzP-C - Last Filed: 11/16/20 11:42> Status: Acute <Gloria Walter INTERLIBRARY LOAN SPECIALIST-C - Last Filed: 11/16/20 11:42> Assessment and Plan: Seen by Dr. Ontiveros manager six sigma/oncologist Ruling out multiple myeloma Oncology consulted at previous hospital, immunology studies pending Will follow up with Dr. Ontiveros after 1 week after discharge <Gloria Walter INTERLIBRARY LOAN SPECIALIST-C - Last Filed: 11/16/20 11:42> (4) COVID-19: Code(s): U07.1 - COVID-19 <Gloria Walter INTERLIBRARY LOAN SPECIALIST-C - Last Filed: 11/16/20 11:42> Status: Acute <Gloria Walter INTERLIBRARY LOAN SPECIALIST-C - Last Filed: 11/16/20 11:42> Assessment and Plan: Patient tested 11/07/2020, off quarantine 1216 Continue remdesivir started 11/14/2020 and dexamethasone Patient currently on 50 L high flow satting in the 90s X-ray worsening Blood cultures no growth CTA negative for PE Lactic acid within normal limits <Gloria WalterSHARATH - Last Filed: 11/16/20 11:42> (5) Hypothyroidism: Code(s): E03.9 - Hypothyroidism, unspecified <Gloria WalterSHARATH - Last Filed: 11/16/20 11:42> Status: Chronic <Gloria WalterFANRaulNazanin - Last Filed: 11/16/20 11:42> Assessment and Plan: Continue Synthroid 75 mg daily <Gloria WalterFANRaulNazanin - Last Filed: 11/16/20 11:42> (6) Hypercholesterolemia: Code(s): E78.00 - Pure hypercholesterolemia, unspecified <Gloria Walter INTERLIBRARY LOAN SPECIALISTRaulNazanin - Last Filed: 11/16/20 11:42> Status: Chronic <Gloria WalterFANRaulNazanin - Last Filed: 11/16/20 11:42> Assessment and Plan: Continue statins <Gloria Walter INTERLIBRARY LOAN SPECIALISTRaulNazanin - Last Filed: 11/16/20 11:42> (7) Elevated blood pressure reading: Code(s): R03.0 - Elevated blood-pressure reading, without diagnosis of hypertension <Gloria Walter INTERLIBRARY LOAN SPECIALIST-C - Last Filed: 11/16/20 11:42> Status: Acute <Gloria WalterFANRaulNazanin - Last Filed: 11/16/20 11:42> Assessment and Plan: Patient's blood pressure has been elevated since admission 162/82 Will start Norvasc 5 mg Continue vital signs as ordered Will adjust medication as needed <Gloria WalterSHARATH - Last Filed: 11/16/20 11:42> Review of Systems Review of Systems: All systems reviewed & are unremarkable except as noted in HPI and below (10 point system review) <Gloria WalterSHARATH - Last Filed: 11/16/20 11:42> Exam Narrative: Exam Narrative: GENERAL: This is a well-nourished, well-developed patient, in no apparent distress. HEAD: normocephalic, atraumatic. EYES: PERRL. Sclera clear/white. Vision is grossly intact. EARS: External ears normal, auditory canals clear and without drainage, TMs normal without perforation. Hearing grossly intact. NOSE: External nose normal with no obvious nasal discharge, nares without redness, no rhinorrhea. THROAT: Mucous membranes moist, posterior pharynx clear. NECK: Neck supple, non-tender without lymphadenopathy, mas
[2020-11-16] MEDS: REMDESIVIR 100 MG/NS 250 ML 100 MG/250 ML BAG 250 MG IVPB (11:55)
[2020-11-16] MEDS: amLODIPine BESYLATE 5 MG TABLET PO (11:55)
[2020-11-16 12:00] VITALS: BP 151/69; PULSE 118; RESP 16; TEMP 36.1; O2SAT 87
[2020-11-16 16:00] VITALS: BP 141/73; PULSE 99; RESP 22; TEMP 36.2; O2SAT 92
[2020-11-16 20:00] VITALS: BP 140/65; PULSE 92; RESP 18; TEMP 36.3; O2SAT 93; O2SAT 94
[2020-11-16] MEDS: SIMVASTATIN 10 MG TABLET PO (21:23)
[2020-11-16] MEDS: ACETAMINOPHEN 500 MG TABLET PO (21:23)
[2020-11-17] VITALS (7 sets, daily range): BP systolic 110–153; BP diastolic 68–80; PULSE 74–86; RESP 16–20; TEMP 36.3–36.9; O2SAT 89–94
--- NOTE | 2020-11-17 00:47 | PC.NURSE ---
Pt. called for assistance to BSC. Pt. also diaphoretic and wanting linen changed. Pt. linen changed, assisted to BSC s difficulty. Slight SOB c exertion noted. Pt. back to bed c high flow O2 in place. VSS. Call mensah in reach.
[2020-11-17 05:33] LABS: Hematocrit 30.3 % (35.0-42.0); Mean Corpuscular Volume 87.8 fL (78.0-102.0); Mean Platelet Volume 9.7 fl (9.2-11.8); Platelet Count Result 303 K/mm3 (150-420); Red Blood Count 3.45 M/mm3 (4.20-5.40); Red Cell Distribution Width 13.5 % (11.6-14.4)
[2020-11-17 06:14] LABS: Alanine Aminotransferase 15 U/L (14-59); Albumin Level 2.2 g/dL (3.4-5.0); Alkaline Phosphatase 56 U/L (46-116); Anion Gap 9 mmol/L (8-16); Aspartate Amino Transferase 60 U/L (15-37); Bilirubin,Total 0.4 mg/dL (0.00-1.00); Blood Urea Nitrogen 26 mg/dL (7-18); Calcium 8.2 mg/dL (8.5-10.1); Carbon Dioxide 23 mmol/L (21-32); Chloride 100 mmol/L (98-108); Estimated CRCL calculation 38 ml/min; Estimated Glomerular Filt Rate > 60; Glucose 109 mg/dL (70-99); Magnesium 2.1 mg/dL (1.8-2.4); Osmolality Calculated 279 mOsm/kg (285-295); Potassium 3.7 mmol/L (3.5-5.1); Sodium 132 mmol/L (136-145); Total Protein 7.2 g/dL (6.4-8.2)
[2020-11-17] MEDS: ALBUTEROL SULFATE (*SP) INHALER 2 PUFF INHALATION ×4 (06:32→21:38)
[2020-11-17] MEDS: LEVOTHYROXINE SODIUM 75 MCG TABLET PO (06:33)
[2020-11-17] MEDS: LIDOCAINE 5% PATCH 1 PATCH TRANSDERM (08:54)
[2020-11-17] MEDS: DEXAMETHASONE 2 MG TABLET 6 MG PO (08:54)
[2020-11-17] MEDS: ENOXAPARIN 40 MG/0.4 ML SYRINGE SUB-Q (08:54)
[2020-11-17] MEDS: amLODIPine BESYLATE 5 MG TABLET PO (08:54)
--- NOTE | 2020-11-17 11:41 | P.PN_ITS ---
Progress Note: A&P Assessment and Plan (1) Physical deconditioning: Code(s): R53.81 - Other malaise Status: Acute Assessment and Plan: * Patient was a swing bed patient due to increased need for supplementary o xygen patient transition to inpatient (2) Anemia of chronic disease: Code(s): D63.8 - Anemia in other chronic diseases classified elsewhere Status: Acute Assessment and Plan: * Patient H&H improved from yesterday currently 11.3 and 35.8 * Will start iron supplement * Monitor H&H (3) Lytic bone lesions on xray: Code(s): M89.9 - Disorder of bone, unspecified Status: Acute Assessment and Plan: * Seen by Dr. Ontiveros automotive leasing sales representative/oncologist * Ruling out multiple myeloma, patient lab results faxed to office * Oncology consulted at previous hospital, immunology studies pending * Will follow up with Dr. Ontiveros after 1 week after discharge (4) COVID-19: Code(s): U07.1 - COVID-19 Status: Acute Assessment and Plan: * Patient tested 11/07/2020, patient's quarantine prolonged due to patient being immunocompromised we will and 11/26 * Continue remdesivir started 11/14/2020 and dexamethasone * Patient currently on 50 L high flow satting in the 90s * X-ray worsening * Blood cultures no growth * CTA negative for PE * Lactic acid within normal limits (5) Hypothyroidism: Code(s): E03.9 - Hypothyroidism, unspecified Status: Chronic Assessment and Plan: * Continue Synthroid 75 mg daily (6) Hypercholesterolemia: Code(s): E78.00 - Pure hypercholesterolemia, unspecified Status: Chronic Assessment and Plan: * Continue statins (7) Elevated blood pressure reading: Code(s): R03.0 - Elevated blood-pressure reading, without diagnosis of hypertension Status: Acute Assessment and Plan: * Patient's blood pressure has been elevated since admission 150/74 * Continue Norvasc 5 mg * Continue vital signs as ordered Will adjust medication as needed Review of Systems Review of Systems: All systems reviewed & are unremarkable except as noted in HPI and below (10 point system review) Exam Narrative: Exam Narrative: GENERAL: This is a well-nourished, well-developed patient, in no apparent distress. HEAD: normocephalic, atraumatic. EYES: PERRL. Sclera clear/white. Vision is grossly intact. EARS: External ears normal, auditory canals clear and without drainage, TMs normal without perforation. Hearing grossly intact. NOSE: External nose normal with no obvious nasal discharge, nares without redness, no rhinorrhea. THROAT: Mucous membranes moist, posterior pharynx clear. NECK: Neck supple, non-tender without lymphadenopathy, masses or thyromegaly. CARDIOVASCULAR: Regular rate and rhythm without murmurs, gallops, or rubs. RESPIRATORY: Diminished breath sounds in upper lobe GASTROINTESTINAL: Abdomen soft, non-tender, nondistended. Bowel sounds are active. No hepato-splenomegaly, or palpable masses. No guarding. SKIN: warm, intact with no suspicious lesions or rash, good texture and turgor. NEURO: awake, alert, and oriented to person, place and time. There were no obvious focal neurologic abnormalities. Steady gait EXTREMITIES: Normal range of motion. No edema. No calf tenderness. Negative Homans sign bilaterally. BACK: Nontender without deformity or crepitance. No flank tenderness. Objective Data Vital Signs Vital Signs: Vital Signs - 24 hr 11/16/20 12:00 11/16/20 16:00 11/16/20
--- NOTE | 2020-11-17 11:41 | WPDPN ---
Progress Note: A&P Assessment and Plan (1) Physical deconditioning: Code(s): R53.81 - Other malaise Status: Acute Assessment and Plan: Patient was a swing bed patient due to increased need for supplementary oxygen patient transition to inpatient (2) Anemia of chronic disease: Code(s): D63.8 - Anemia in other chronic diseases classified elsewhere Status: Acute Assessment and Plan: Patient H&H improved from yesterday currently 11.3 and 35.8 Will start iron supplement Monitor H&H (3) Lytic bone lesions on xray: Code(s): M89.9 - Disorder of bone, unspecified Status: Acute Assessment and Plan: Seen by Dr. Ontiveros forest fire equipment operator/oncologist Ruling out multiple myeloma, patient lab results faxed to office Oncology consulted at previous [facility], immunology studies pending Will follow up with Dr. Ontiveros after 1 week after discharge (4) COVID-19: Code(s): U07.1 - COVID-19 Status: Acute Assessment and Plan: Patient tested 11/07/2020, patient's quarantine prolonged due to patient being immunocompromised we will and 11/26 Continue remdesivir started 11/14/2020 and dexamethasone Patient currently on 50 L high flow satting in the 90s X-ray worsening Blood cultures no growth CTA negative for PE Lactic acid within normal limits (5) Hypothyroidism: Code(s): E03.9 - Hypothyroidism, unspecified Status: Chronic Assessment and Plan: Continue Synthroid 75 mg daily (6) Hypercholesterolemia: Code(s): E78.00 - Pure hypercholesterolemia, unspecified Status: Chronic Assessment and Plan: Continue statins (7) Elevated blood pressure reading: Code(s): R03.0 - Elevated blood-pressure reading, without diagnosis of hypertension Status: Acute Assessment and Plan: Patient's blood pressure has been elevated since admission 150/74 Continue Norvasc 5 mg Continue vital signs as ordered Will adjust medication as needed Review of Systems Review of Systems: All systems reviewed & are unremarkable except as noted in HPI and below (10 point system review) Exam Narrative: Exam Narrative: GENERAL: This is a well-nourished, well-developed patient, in no apparent distress. HEAD: normocephalic, atraumatic. EYES: PERRL. Sclera clear/white. Vision is grossly intact. EARS: External ears normal, auditory canals clear and without drainage, TMs normal without perforation. Hearing grossly intact. NOSE: External nose normal with no obvious nasal discharge, nares without redness, no rhinorrhea. THROAT: Mucous membranes moist, posterior pharynx clear. NECK: Neck supple, non-tender without lymphadenopathy, masses or thyromegaly. CARDIOVASCULAR: Regular rate and rhythm without murmurs, gallops, or rubs. RESPIRATORY: Diminished breath sounds in upper lobe GASTROINTESTINAL: Abdomen soft, non-tender, nondistended. Bowel sounds are active. No hepato-splenomegaly, or palpable masses. No guarding. SKIN: warm, intact with no suspicious lesions or rash, good texture and turgor. NEURO: awake, alert, and oriented to person, place and time. There were no obvious focal neurologic abnormalities. Steady gait EXTREMITIES: Normal range of motion. No edema. No calf tenderness. Negative Homans sign bilaterally. BACK: Nontender without deformity or crepitance. No flank tenderness. Objective Data Vital Signs Vital Signs: Vital Signs - 24 hr 11/16/20 12:00 11/16/20 16:00 11/16/20 20:00 Temperature 96.9 F L 97.1 F L 97.4 F L Pulse Rate 118 H 99 92 Respiratory Rate 16 22 H 18 Blood Pressure 151/69 H 141/73 H 140/65 Pulse Oximetry 87 L 92 94 11/17/20 00:30 11/17/20 03:42 11/17/20 08:00 Temperature 97.6 F 97.6 F 98.5 F Pulse Rate 74 74 86 Respiratory Rate 20 20 18 Blood Pressure 149/80 H 150/74 H 145/68 H Pulse Oximetry 92 93 90 Intake/Output Intake/Output: Intake & Output 11/14/20 11/15/20 11/16/20 11/17/20 23:59 2
[2020-11-17] MEDS: REMDESIVIR 100 MG/NS 250 ML 100 MG/250 ML BAG 250 MG IVPB (12:56)
--- NOTE | 2020-11-17 16:45 | PC.NURSE ---
This nurse spoke with both the patient and the patient's , Betty, about the new orders for patient's blood pressure. Both patient and state understanding.
[2020-11-17] MEDS: SIMVASTATIN 10 MG TABLET PO (21:12)
[2020-11-17] MEDS: ACETAMINOPHEN 500 MG TABLET PO (21:39)
[2020-11-17] MEDS: ENOXAPARIN 60 MG/0.6 ML SYRINGE SUB-Q (21:39)
--- NOTE | 2020-11-17 23:29 | PC.NURSE ---
Patients sats drop to 89% when HOB is flat. Increase to 93% with HOB slightly elevated. 98% when sitting up in chair. Education given to patient regarding sleeping with HOB elevated. PRN tylenol given to patient for general comfort and to promote sleep. lEncouraging patient to perform more ADLS-put on sweater, pull up blankets, sit up in bed when gown and pillow changed
[2020-11-18] VITALS (7 sets, daily range): BP systolic 118–153; BP diastolic 44–73; PULSE 74–100; RESP 16–22; TEMP 35.8–36.5; O2SAT 87–99
[2020-11-18] MEDS: ALBUTEROL SULFATE (*SP) INHALER 2 PUFF INHALATION ×4 (05:46→23:06)
[2020-11-18] MEDS: LEVOTHYROXINE SODIUM 75 MCG TABLET PO (05:46)
[2020-11-18 05:57] LABS: Hemoglobin 10.2 g/dL (11.7-13.8); Mean Corpuscular HGB Conc 31.9 g/dL (32.0-36.0); Mean Corpuscular Hemoglobin 28.4 pg (27.0-31.0); Mean Corpuscular Volume 89.1 fL (78.0-102.0); Platelet Count Result 294 K/mm3 (150-420); Red Blood Count 3.59 M/mm3 (4.20-5.40); Red Cell Distribution Width 13.7 % (11.6-14.4); White Blood Count 7.7 K/mm3 (4.8-10.8)
[2020-11-18 06:04] LABS: Alanine Aminotransferase 13 U/L (14-59); Albumin Level 2.2 g/dL (3.4-5.0); Alkaline Phosphatase 58 U/L (46-116); Anion Gap 7 mmol/L (8-16); Aspartate Amino Transferase 54 U/L (15-37); Bilirubin,Total 0.4 mg/dL (0.00-1.00); Blood Urea Nitrogen 31 mg/dL (7-18); Calcium 8.6 mg/dL (8.5-10.1); Carbon Dioxide 25 mmol/L (21-32); Chloride 101 mmol/L (98-108); Estimated CRCL calculation 37 ml/min; Estimated Glomerular Filt Rate > 60; Glucose 130 mg/dL (70-99); Osmolality Calculated 284 mOsm/kg (285-295); Potassium 3.9 mmol/L (3.5-5.1); Sodium 133 mmol/L (136-145); Total Protein 7.3 g/dL (6.4-8.2)
--- NOTE | 2020-11-18 09:25 | P.PN_ITS ---
Progress Note: A&P Assessment and Plan (1) Physical deconditioning: Code(s): R53.81 - Other malaise Status: Acute Assessment and Plan: * Patient was a swing bed patient due to increased need for supplementary o xygen patient transition to inpatient (2) Anemia of chronic disease: Code(s): D63.8 - Anemia in other chronic diseases classified elsewhere Status: Acute Assessment and Plan: * Patient's hemoglobin 10.3 hematocrit 30.3 * Will start iron supplement * Monitor H&H (3) Lytic bone lesions on xray: Code(s): M89.9 - Disorder of bone, unspecified Status: Acute Assessment and Plan: * Seen by Dr. Ontiveros assisted living care manager/oncologist * patient lab results faxed to office Dr. Ontiveros is working patient up for multiple myeloma * Oncology consulted at previous hospital, immunology studies sent to assisted living care manager oncologist * Will follow up with Dr. Ontiveros after 1 week after discharge (4) COVID-19: Code(s): U07.1 - COVID-19 Status: Acute Assessment and Plan: * Patient tested 11/07/2020, patient's quarantine prolonged due to patient being immunocompromised we will and 11/26 * Continue remdesivir started 11/14/2020 and dexamethasone * Patient currently on 50 L high flow satting in the 90s patient oxygen level has been titrated down since admission previously 55 L high flow * X-ray worsening * Blood cultures no growth * CTA negative for PE * Lactic acid within normal limits (5) Hypothyroidism: Code(s): E03.9 - Hypothyroidism, unspecified Status: Chronic Assessment and Plan: * Continue Synthroid 75 mg daily (6) Hypercholesterolemia: Code(s): E78.00 - Pure hypercholesterolemia, unspecified Status: Chronic Assessment and Plan: * Continue statins (7) Elevated blood pressure reading: Code(s): R03.0 - Elevated blood-pressure reading, without diagnosis of hypertension Status: Acute Assessment and Plan: * Patient's blood pressure has been elevated since admission 131/63 has improved * Continue Norvasc 5 mg * Continue vital signs as ordered Will adjust medication as needed Review of Systems Review of Systems: All systems reviewed & are unremarkable except as noted in HPI and below (10 point system review) Exam Narrative: Exam Narrative: GENERAL: This is a well-nourished, well-developed patient, in no apparent distress. HEAD: normocephalic, atraumatic. EYES: PERRL. Sclera clear/white. Vision is grossly intact. EARS: External ears normal, auditory canals clear and without drainage, TMs normal without perforation. Hearing grossly intact. NOSE: External nose normal with no obvious nasal discharge, nares without redness, no rhinorrhea. THROAT: Mucous membranes moist, posterior pharynx clear. NECK: Neck supple, non-tender without lymphadenopathy, masses or thyromegaly. CARDIOVASCULAR: Regular rate and rhythm without murmurs, gallops, or rubs. RESPIRATORY: Diminished breath sounds in upper lobe GASTROINTESTINAL: Abdomen soft, non-tender, nondistended. Bowel sounds are active. No hepato-splenomegaly, or palpable masses. No guarding. SKIN: warm, intact with no suspicious lesions or rash, good texture and turgor. NEURO: awake, alert, and oriented to person, place and time. There were no obvious focal neurologic abnormalities. Steady gait EXTREMITIES: Normal range of motion. No edema. No calf tenderness. Negative Homans sign bilaterally. BACK: Nontender without deformity or crepitance. No flank tenderness. Objective Data
--- NOTE | 2020-11-18 09:25 | WPDPN ---
Progress Note: A&P Assessment and Plan (1) Physical deconditioning: Code(s): R53.81 - Other malaise Status: Acute Assessment and Plan: Patient was a swing bed patient due to increased need for supplementary oxygen patient transition to inpatient (2) Anemia of chronic disease: Code(s): D63.8 - Anemia in other chronic diseases classified elsewhere Status: Acute Assessment and Plan: Patient's hemoglobin 10.3 hematocrit 30.3 Will start iron supplement Monitor H&H (3) Lytic bone lesions on xray: Code(s): M89.9 - Disorder of bone, unspecified Status: Acute Assessment and Plan: Seen by Dr. Ontiveros quality assurance monitor/oncologist patient lab results faxed to office Dr. Ontiveros is working patient up for multiple myeloma Oncology consulted at previous hospital, immunology studies sent to quality assurance monitor oncologist Will follow up with Dr. Ontiveros after 1 week after discharge (4) COVID-19: Code(s): U07.1 - COVID-19 Status: Acute Assessment and Plan: Patient tested 11/07/2020, patient's quarantine prolonged due to patient being immunocompromised we will and 11/26 Continue remdesivir started 11/14/2020 and dexamethasone Patient currently on 50 L high flow satting in the 90s patient oxygen level has been titrated down since admission previously 55 L high flow X-ray worsening Blood cultures no growth CTA negative for PE Lactic acid within normal limits (5) Hypothyroidism: Code(s): E03.9 - Hypothyroidism, unspecified Status: Chronic Assessment and Plan: Continue Synthroid 75 mg daily (6) Hypercholesterolemia: Code(s): E78.00 - Pure hypercholesterolemia, unspecified Status: Chronic Assessment and Plan: Continue statins (7) Elevated blood pressure reading: Code(s): R03.0 - Elevated blood-pressure reading, without diagnosis of hypertension Status: Acute Assessment and Plan: Patient's blood pressure has been elevated since admission 131/63 has improved Continue Norvasc 5 mg Continue vital signs as ordered Will adjust medication as needed Review of Systems Review of Systems: All systems reviewed & are unremarkable except as noted in HPI and below (10 point system review) Exam Narrative: Exam Narrative: GENERAL: This is a well-nourished, well-developed patient, in no apparent distress. HEAD: normocephalic, atraumatic. EYES: PERRL. Sclera clear/white. Vision is grossly intact. EARS: External ears normal, auditory canals clear and without drainage, TMs normal without perforation. Hearing grossly intact. NOSE: External nose normal with no obvious nasal discharge, nares without redness, no rhinorrhea. THROAT: Mucous membranes moist, posterior pharynx clear. NECK: Neck supple, non-tender without lymphadenopathy, masses or thyromegaly. CARDIOVASCULAR: Regular rate and rhythm without murmurs, gallops, or rubs. RESPIRATORY: Diminished breath sounds in upper lobe GASTROINTESTINAL: Abdomen soft, non-tender, nondistended. Bowel sounds are active. No hepato-splenomegaly, or palpable masses. No guarding. SKIN: warm, intact with no suspicious lesions or rash, good texture and turgor. NEURO: awake, alert, and oriented to person, place and time. There were no obvious focal neurologic abnormalities. Steady gait EXTREMITIES: Normal range of motion. No edema. No calf tenderness. Negative Homans sign bilaterally. BACK: Nontender without deformity or crepitance. No flank tenderness. Objective Data Vital Signs Vital Signs: Vital Signs - 24 hr 11/17/20 12:00 11/17/20 16:00 11/17/20 20:00 Temperature 97.4 F L 97.8 F 97.6 F Pulse Rate 86 86 77 Respiratory Rate 18 20 16 Blood Pressure 145/76 H 153/73 H 110/74 Pulse Oximetry 91 94 89 L 11/17/20 21:00 11/18/20 00:00 11/18/20 04:00 Temperature 97.6 F 97.7 F Pulse Rate 74 77 Respiratory Rate 22 H 20 Blood Pressure 153/65 H 131/63 Pulse Oximetry 93 98 9
[2020-11-18] MEDS: ACETAMINOPHEN 500 MG TABLET PO ×2 (10:21→20:16)
[2020-11-18] MEDS: amLODIPine BESYLATE 5 MG TABLET PO (10:24)
[2020-11-18] MEDS: ENOXAPARIN 60 MG/0.6 ML SYRINGE SUB-Q ×2 (10:24→20:17)
[2020-11-18] MEDS: LIDOCAINE 5% PATCH 1 PATCH TRANSDERM (10:25)
[2020-11-18] MEDS: BENZONATATE 100 MG CAPSULE PO ×3 (10:28→17:54)
[2020-11-18] MEDS: DEXAMETHASONE 2 MG TABLET 6 MG PO (10:59)
[2020-11-18] MEDS: REMDESIVIR 100 MG/NS 250 ML 100 MG/250 ML BAG 250 MG IVPB (12:49)
[2020-11-18] MEDS: SIMVASTATIN 10 MG TABLET PO (20:17)
[2020-11-19] VITALS (9 sets, daily range): BP systolic 124–146; BP diastolic 60–77; PULSE 72–86; RESP 16–22; TEMP 36.1–36.9; O2SAT 95–98
[2020-11-19 05:47] LABS: Hematocrit 30.2 % (35.0-42.0); Mean Corpuscular HGB Conc 33.1 g/dL (32.0-36.0); Mean Corpuscular Hemoglobin 29.3 pg (27.0-31.0); Mean Corpuscular Volume 88.6 fL (78.0-102.0); Mean Platelet Volume 10.2 fl (9.2-11.8); Platelet Count Result 319 K/mm3 (150-420); Red Blood Count 3.41 M/mm3 (4.20-5.40); Red Cell Distribution Width 13.8 % (11.6-14.4)
[2020-11-19 06:10] LABS: Alanine Aminotransferase 13 U/L (14-59); Albumin Level 2.1 g/dL (3.4-5.0); Alkaline Phosphatase 57 U/L (46-116); Anion Gap 6 mmol/L (8-16); Aspartate Amino Transferase 52 U/L (15-37); Bilirubin,Total 0.4 mg/dL (0.00-1.00); Blood Urea Nitrogen 30 mg/dL (7-18); Calcium 8.6 mg/dL (8.5-10.1); Carbon Dioxide 26 mmol/L (21-32); Chloride 100 mmol/L (98-108); Estimated CRCL calculation 38 ml/min; Estimated Glomerular Filt Rate > 60; Glucose 146 mg/dL (70-99); Osmolality Calculated 283 mOsm/kg (285-295); Potassium 3.7 mmol/L (3.5-5.1); Sodium 132 mmol/L (136-145); Total Protein 7.6 g/dL (6.4-8.2)
[2020-11-19] MEDS: ALBUTEROL SULFATE (*SP) INHALER 2 PUFF INHALATION ×4 (06:20→19:36)
[2020-11-19] MEDS: LEVOTHYROXINE SODIUM 75 MCG TABLET PO (06:20)
[2020-11-19] MEDS: DEXAMETHASONE 2 MG TABLET 6 MG PO (08:27)
[2020-11-19] MEDS: ENOXAPARIN 60 MG/0.6 ML SYRINGE SUB-Q ×2 (08:27→21:32)
[2020-11-19] MEDS: LIDOCAINE 5% PATCH 1 PATCH TRANSDERM (08:31)
[2020-11-19] MEDS: BENZONATATE 100 MG CAPSULE PO ×3 (08:39→16:18)
[2020-11-19] MEDS: amLODIPine BESYLATE 5 MG TABLET PO (08:39)
--- NOTE | 2020-11-19 11:42 | P.PN_ITS ---
Progress Note: A&P Assessment and Plan (1) Physical deconditioning: Code(s): R53.81 - Other malaise <Gloria Walter BUTTON SEWER HAND-C - Last Filed: 11/19/20 11:55> Status: Acute <Gloria Walter BUTTON SEWER HAND-C - Last Filed: 11/19/20 11:55> Assessment and Plan: * Patient was a swing bed patient due to increased need for supplementary oxygen patient transition to inpatient <Gloria Walter BUTTON SEWER HAND-C - Last Filed: 11/19/20 11:55> (2) Anemia of chronic disease: Code(s): D63.8 - Anemia in other chronic diseases classified elsewhere <Gloria Walter BUTTON SEWER HAND-C - Last Filed: 11/19/20 11:55> Status: Acute <Gloria Walter BUTTON SEWER HAND-C - Last Filed: 11/19/20 11:55> Assessment and Plan: * Patient's hemoglobin 10.hematocrit 30.2 * Will start iron supplement * Monitor H&H <Gloria Walter BUTTON SEWER HAND-C - Last Filed: 11/19/20 11:55> (3) Lytic bone lesions on xray: Code(s): M89.9 - Disorder of bone, unspecified <Gloria Walter BUTTON SEWER HAND-C - Last Filed: 11/19/20 11:55> Status: Acute <Gloria Walter BUTTON SEWER HAND-C - Last Filed: 11/19/20 11:55> Assessment and Plan: * Seen by Dr. Ontiveros accounts payable assistant/oncologist * patient lab results faxed to office Dr. Ontiveros is working patient up for multiple myeloma * Oncology consulted at previous hospital, immunology studies sent to accounts payable assistant oncologist * Will follow up with Dr. Ontiveros after 1 week after discharge <Gloria VallejoSalome Jose Angel BUTTON SEWER HAND-C - Last Filed: 11/19/20 11:55> (4) COVID-19: Code(s): U07.1 - COVID-19 <lGoria Walter BUTTON SEWER HAND-C - Last Filed: 11/19/20 11:55> Status: Acute <Gloria Walter BUTTON SEWER HAND-C - Last Filed: 11/19/20 11:55> Assessment and Plan: * Patient tested 11/07/2020, patient's quarantine prolonged due to patient being immunocompromised we will and 11/26 * remdesivir started 11/14/2020 completed and dexamethasone * Patient currently on 50 L high flow satting in the 90s patient oxygen level has been titrated down since admission previously 55 L high flow * X-ray worsening * Blood cultures no growth * CTA negative for PE * Lactic acid within normal limits <Gloria Walter BUTTON SEWER HAND-C - Last Filed: 11/19/20 11:55> (5) Hypothyroidism: Code(s): E03.9 - Hypothyroidism, unspecified <Gloria Walter BUTTON SEWER HAND-C - Last Filed: 11/19/20 11:55> Status: Chronic <Gloria Walter SHANNONC - Last Filed: 11/19/20 11:55> Assessment and Plan: * Continue Synthroid 75 mg daily <Gloria VallejoFAN Reyna-C - Last Filed: 11/19/20 11:55> (6) Hypercholesterolemia: Code(s): E78.00 - Pure hypercholesterolemia, unspecified <Gloria Walter FAN-C - Last Filed: 11/19/20 11:55> Status: Chronic <Gloria Walter SHARATH - Last Filed: 11/19/20 11:55> Assessment and Plan: * Continue statins <Gloria Walter FAN-C - Last Filed: 11/19/20 11:55> (7) Elevated blood pressure reading: Code(s): R03.0 - Elevated blood-pressure reading, without diagnosis of hypertension <Gloria Walter BUTTON SEWER HAND-C - Last Filed: 11/19/20 11:55> Status: Acute <Gloria Walter BUTTON SEWER HAND-C - Last Filed: 11/19/20 11:55> Assessment and Plan: * Patient's blood pressure has been elevated since admission 146/77 has improved * Continue Norvasc 5 mg * Continue vital signs as ordered Will adjust medication as needed <Gloria VallejoSalome Walter BUTTON SEWER HAND-C - Last Filed: 11/19/20 11:55> Review of Systems Review of Systems: All systems reviewed & are unremarkable except as noted in HPI and below (10 point system revie
--- NOTE | 2020-11-19 11:42 | WPDPN ---
Progress Note: A&P Assessment and Plan (1) Physical deconditioning: Code(s): R53.81 - Other malaise <Gloria Walter SENIOR GOVERNMENT PROGRAM ANALYST-C - Last Filed: 11/19/20 11:55> Status: Acute <Gloria Walter SENIOR GOVERNMENT PROGRAM ANALYST-C - Last Filed: 11/19/20 11:55> Assessment and Plan: Patient was a swing bed patient due to increased need for supplementary oxygen patient transition to inpatient <Gloria Walter SENIOR GOVERNMENT PROGRAM ANALYST-C - Last Filed: 11/19/20 11:55> (2) Anemia of chronic disease: Code(s): D63.8 - Anemia in other chronic diseases classified elsewhere <Gloria Walter SENIOR GOVERNMENT PROGRAM ANALYST-C - Last Filed: 11/19/20 11:55> Status: Acute <Gloria Walter SENIOR GOVERNMENT PROGRAM ANALYST-C - Last Filed: 11/19/20 11:55> Assessment and Plan: Patient's hemoglobin 10.hematocrit 30.2 Will start iron supplement Monitor H&H <Gloria Walter SENIOR GOVERNMENT PROGRAM ANALYST-C - Last Filed: 11/19/20 11:55> (3) Lytic bone lesions on xray: Code(s): M89.9 - Disorder of bone, unspecified <Gloria Walter SENIOR GOVERNMENT PROGRAM ANALYST-C - Last Filed: 11/19/20 11:55> Status: Acute <Gloria Walter SENIOR GOVERNMENT PROGRAM ANALYST-C - Last Filed: 11/19/20 11:55> Assessment and Plan: Seen by Dr. Ontiveros telehealth case manager/oncologist patient lab results faxed to office Dr. Ontiveros is working patient up for multiple myeloma Oncology consulted at [facility], immunology studies sent to telehealth case manager oncologist Will follow up with Dr. Ontiveros after 1 week after discharge <Gloria VallejoSalome Jose Angel SENIOR GOVERNMENT PROGRAM ANALYST-C - Last Filed: 11/19/20 11:55> (4) COVID-19: Code(s): U07.1 - COVID-19 <Gloria Walter SENIOR GOVERNMENT PROGRAM ANALYST-C - Last Filed: 11/19/20 11:55> Status: Acute <Gloria VallejoSalome Jose Angel SENIOR GOVERNMENT PROGRAM ANALYST-C - Last Filed: 11/19/20 11:55> Assessment and Plan: Patient tested 11/07/2020, patient's quarantine prolonged due to patient being immunocompromised we will and 11/26 remdesivir started 11/14/2020 completed and dexamethasone Patient currently on 50 L high flow satting in the 90s patient oxygen level has been titrated down since admission previously 55 L high flow X-ray worsening Blood cultures no growth CTA negative for PE Lactic acid within normal limits <SHARATH Cruz - Last Filed: 11/19/20 11:55> (5) Hypothyroidism: Code(s): E03.9 - Hypothyroidism, unspecified <SHARATH Cruz - Last Filed: 11/19/20 11:55> Status: Chronic <SHARATH Cruz - Last Filed: 11/19/20 11:55> Assessment and Plan: Continue Synthroid 75 mg daily <SHARATH Cruz - Last Filed: 11/19/20 11:55> (6) Hypercholesterolemia: Code(s): E78.00 - Pure hypercholesterolemia, unspecified <SHANNON CruzC - Last Filed: 11/19/20 11:55> Status: Chronic <SHARATH Cruz - Last Filed: 11/19/20 11:55> Assessment and Plan: Continue statins <SHARATH Cruz - Last Filed: 11/19/20 11:55> (7) Elevated blood pressure reading: Code(s): R03.0 - Elevated blood-pressure reading, without diagnosis of hypertension <SHARATH Cruz - Last Filed: 11/19/20 11:55> Status: Acute <SHARATH Cruz - Last Filed: 11/19/20 11:55> Assessment and Plan: Patient's blood pressure has been elevated since admission 146/77 has improved Continue Norvasc 5 mg Continue vital signs as ordered Will adjust medication as needed <SHARATH Cruz - Last Filed: 11/19/20 11:55> Review of Systems Review of Systems: All systems reviewed & are unremarkable except as noted in HPI and below (10 point system review) <SHARATH Cruz - Last Filed: 11/19/20 11:55> Exam Narrative: Exam Narrative: GENERAL: This is a well-nourished, well-developed patient, in no apparent distress. HEAD: normocephalic, atraumatic. EYES: PERRL. Sclera clear/white. Vision is grossly intact. EARS: External ears normal, auditory canals clear and without drainage, TMs normal without perforation
[2020-11-19] MEDS: ACETAMINOPHEN 500 MG TABLET PO (16:18)
[2020-11-19] MEDS: SIMVASTATIN 10 MG TABLET PO (21:32)
[2020-11-20 04:00] VITALS: BP 136/72; PULSE 70; RESP 18; TEMP 36.7; O2SAT 95
[2020-11-20] MEDS: ALBUTEROL SULFATE (*SP) INHALER 2 PUFF INHALATION ×4 (05:31→20:42)
[2020-11-20] MEDS: LEVOTHYROXINE SODIUM 75 MCG TABLET PO (05:31)
[2020-11-20 05:41] LABS: Hematocrit 28.2 % (35.0-42.0); Hemoglobin 9.2 g/dL (11.7-13.8); Immature Granulocyte Absolute 0.09 K/mm3 (0.00-0.00); Immature Granulocyte Percent A 1.1 % (0.0-0.0); Lymphocytes Absolute Auto 0.79 K/mm3 (1.10-4.50); Lymphocytes Percent Auto 9.9 % (18.0-42.0); Mean Corpuscular HGB Conc 32.6 g/dL (32.0-36.0); Mean Corpuscular Hemoglobin 28.6 pg (27.0-31.0); Mean Corpuscular Volume 87.6 fL (78.0-102.0); Mean Platelet Volume 10.1 fl (9.2-11.8); Monocytes Absolute Auto 0.93 K/mm3 (0.10-0.90); Monocytes Percent Auto 11.6 % (2.0-11.0); Neutrophils Absolute Auto 6.2 K/mm3 (1.7-7.2); Neutrophils Percent Auto 77.4 % (50.0-70.0); Platelet Count Result 368 K/mm3 (150-420); Red Blood Count 3.22 M/mm3 (4.20-5.40); Red Cell Distribution Width 13.4 % (11.6-14.4)
[2020-11-20 05:53] LABS: Alanine Aminotransferase 11 U/L (14-59); Alkaline Phosphatase 55 U/L (46-116); Anion Gap 4 mmol/L (8-16); Aspartate Amino Transferase 42 U/L (15-37); Bilirubin,Total 0.4 mg/dL (0.00-1.00); Blood Urea Nitrogen 29 mg/dL (7-18); Calcium 8.4 mg/dL (8.5-10.1); Carbon Dioxide 27 mmol/L (21-32); Chloride 100 mmol/L (98-108); Estimated CRCL calculation 39 ml/min; Estimated Glomerular Filt Rate > 60; Glucose 117 mg/dL (70-99); Osmolality Calculated 278 mOsm/kg (285-295); Sodium 131 mmol/L (136-145); Total Protein 7.2 g/dL (6.4-8.2)
--- NOTE | 2020-11-20 07:45 | P.PN_ITS ---
Progress Note: A&P Assessment and Plan (1) Physical deconditioning: Code(s): R53.81 - Other malaise Status: Acute Assessment and Plan: * Patient was a swing bed patient due to increased need for supplementary o xygen patient transition to inpatient (2) Anemia of chronic disease: Code(s): D63.8 - Anemia in other chronic diseases classified elsewhere Status: Acute Assessment and Plan: * Patient's H&H unchanged * Will start iron supplement * Monitor H&H (3) Lytic bone lesions on xray: Code(s): M89.9 - Disorder of bone, unspecified Status: Acute Assessment and Plan: * Seen by Dr. Ontiveros senior sql developer/oncologist * patient lab results faxed to office Dr. Ontiveros is working patient up for multiple myeloma * Oncology consulted at previous hospital, immunology studies sent to senior sql developer oncologist * Will follow up with Dr. Ontiveros after 1 week after discharge (4) COVID-19: Code(s): U07.1 - COVID-19 Status: Acute Assessment and Plan: * Patient tested 11/07/2020, patient's quarantine prolonged due to patient being immunocompromised we will and 11/26 * remdesivir started 11/14/2020 completed and dexamethasone * Patient currently on 25L high flow satting in the 90s patient oxygen level has been titrated down since admission previously 55 L high flow * X-ray worsening * Blood cultures no growth * CTA negative for PE * Lactic acid within normal limits (5) Hypothyroidism: Code(s): E03.9 - Hypothyroidism, unspecified Status: Chronic Assessment and Plan: * Continue Synthroid 75 mg daily (6) Hypercholesterolemia: Code(s): E78.00 - Pure hypercholesterolemia, unspecified Status: Chronic Assessment and Plan: * Continue statins (7) Elevated blood pressure reading: Code(s): R03.0 - Elevated blood-pressure reading, without diagnosis of hypertension Status: Acute Assessment and Plan: * Patient's blood pressure has been elevated since admission 136/72 has improved * Continue Norvasc 5 mg * Continue vital signs as ordered Will adjust medication as needed Review of Systems Review of Systems: All systems reviewed & are unremarkable except as noted in HPI and below (10 point system review) Exam Narrative: Exam Narrative: GENERAL: This is a well-nourished, well-developed patient, in no apparent distress. HEAD: normocephalic, atraumatic. EYES: PERRL. Sclera clear/white. Vision is grossly intact. EARS: External ears normal, auditory canals clear and without drainage, TMs normal without perforation. Hearing grossly intact. NOSE: External nose normal with no obvious nasal discharge, nares without redness, no rhinorrhea. THROAT: Mucous membranes moist, posterior pharynx clear. NECK: Neck supple, non-tender without lymphadenopathy, masses or thyromegaly. CARDIOVASCULAR: Regular rate and rhythm without murmurs, gallops, or rubs. RESPIRATORY: Diminished breath sounds in upper lobe GASTROINTESTINAL: Abdomen soft, non-tender, nondistended. Bowel sounds are active. No hepato-splenomegaly, or palpable masses. No guarding. SKIN: warm, intact with no suspicious lesions or rash, good texture and turgor. NEURO: awake, alert, and oriented to person, place and time. There were no obvious focal neurologic abnormalities. Steady gait EXTREMITIES: Normal range of motion. No edema. No calf tenderness. Negative Homans sign bilaterally. BACK: Nontender without deformity or crepitance. No flank tenderness. Objective Data Vital Signs
--- NOTE | 2020-11-20 07:45 | WPDPN ---
Progress Note: A&P Assessment and Plan (1) Physical deconditioning: Code(s): R53.81 - Other malaise Status: Acute Assessment and Plan: Patient was a swing bed patient due to increased need for supplementary oxygen patient transition to inpatient (2) Anemia of chronic disease: Code(s): D63.8 - Anemia in other chronic diseases classified elsewhere Status: Acute Assessment and Plan: Patient's H&H unchanged Will start iron supplement Monitor H&H (3) Lytic bone lesions on xray: Code(s): M89.9 - Disorder of bone, unspecified Status: Acute Assessment and Plan: Seen by Dr. Ontiveros air tucker/oncologist patient lab results faxed to office Dr. Ontiveros is working patient up for multiple myeloma Oncology consulted at previous hospital, immunology studies sent to air tucker oncologist Will follow up with Dr. Ontiveros after 1 week after discharge (4) COVID-19: Code(s): U07.1 - COVID-19 Status: Acute Assessment and Plan: Patient tested 11/07/2020, patient's quarantine prolonged due to patient being immunocompromised we will and 11/26 remdesivir started 11/14/2020 completed and dexamethasone Patient currently on 25L high flow satting in the 90s patient oxygen level has been titrated down since admission previously 55 L high flow X-ray worsening Blood cultures no growth CTA negative for PE Lactic acid within normal limits (5) Hypothyroidism: Code(s): E03.9 - Hypothyroidism, unspecified Status: Chronic Assessment and Plan: Continue Synthroid 75 mg daily (6) Hypercholesterolemia: Code(s): E78.00 - Pure hypercholesterolemia, unspecified Status: Chronic Assessment and Plan: Continue statins (7) Elevated blood pressure reading: Code(s): R03.0 - Elevated blood-pressure reading, without diagnosis of hypertension Status: Acute Assessment and Plan: Patient's blood pressure has been elevated since admission 136/72 has improved Continue Norvasc 5 mg Continue vital signs as ordered Will adjust medication as needed Review of Systems Review of Systems: All systems reviewed & are unremarkable except as noted in HPI and below (10 point system review) Exam Narrative: Exam Narrative: GENERAL: This is a well-nourished, well-developed patient, in no apparent distress. HEAD: normocephalic, atraumatic. EYES: PERRL. Sclera clear/white. Vision is grossly intact. EARS: External ears normal, auditory canals clear and without drainage, TMs normal without perforation. Hearing grossly intact. NOSE: External nose normal with no obvious nasal discharge, nares without redness, no rhinorrhea. THROAT: Mucous membranes moist, posterior pharynx clear. NECK: Neck supple, non-tender without lymphadenopathy, masses or thyromegaly. CARDIOVASCULAR: Regular rate and rhythm without murmurs, gallops, or rubs. RESPIRATORY: Diminished breath sounds in upper lobe GASTROINTESTINAL: Abdomen soft, non-tender, nondistended. Bowel sounds are active. No hepato-splenomegaly, or palpable masses. No guarding. SKIN: warm, intact with no suspicious lesions or rash, good texture and turgor. NEURO: awake, alert, and oriented to person, place and time. There were no obvious focal neurologic abnormalities. Steady gait EXTREMITIES: Normal range of motion. No edema. No calf tenderness. Negative Homans sign bilaterally. BACK: Nontender without deformity or crepitance. No flank tenderness. Objective Data Vital Signs Vital Signs: Vital Signs - 24 hr 11/19/20 08:00 11/19/20 09:30 11/19/20 11:00 Temperature 98.1 F Pulse Rate 84 Respiratory Rate 22 H Blood Pressure 144/76 H Pulse Oximetry 97 98 97 11/19/20 16:00 11/19/20 20:00 11/19/20 23:46 Temperature 97.0 F L 97.4 F L 98.4 F Pulse Rate 74 72 72 Respiratory Rate 16 18 18 Blood Pressure 124/60 134/67 129/67 Pulse Oximetry 97 96 97 11/20/20 04:00 Temperature 9
[2020-11-20 08:00] VITALS: BP 123/73; PULSE 90; RESP 18; TEMP 36.8; O2SAT 97
[2020-11-20] MEDS: BENZONATATE 100 MG CAPSULE PO ×3 (08:26→17:33)
[2020-11-20] MEDS: DEXAMETHASONE 2 MG TABLET 6 MG PO (08:26)
[2020-11-20] MEDS: ENOXAPARIN 60 MG/0.6 ML SYRINGE SUB-Q ×2 (08:26→20:42)
[2020-11-20] MEDS: amLODIPine BESYLATE 5 MG TABLET PO (08:27)
[2020-11-20] MEDS: LIDOCAINE 5% PATCH 1 PATCH TRANSDERM (08:27)
[2020-11-20 09:58] VITALS: O2SAT 98
[2020-11-20 12:00] VITALS: BP 124/76; PULSE 67; RESP 18; TEMP 37; O2SAT 94
[2020-11-20] MEDS: oxyCODONE HCL (*CRX) 5 MG TAB IR 2.5 MG PO (13:07)
[2020-11-20 15:44] VITALS: BP 151/58; PULSE 79; RESP 20; TEMP 36; O2SAT 92
[2020-11-20] MEDS: ACETAMINOPHEN 500 MG TABLET PO (18:31)
[2020-11-20 20:40] VITALS: BP 126/70; PULSE 74; RESP 20; TEMP 36.2; O2SAT 95
[2020-11-20] MEDS: SIMVASTATIN 10 MG TABLET PO (20:42)
[2020-11-21] VITALS (9 sets, daily range): BP systolic 115–149; BP diastolic 48–96; PULSE 65–87; RESP 18–28; TEMP 36–36.6; O2SAT 90–98
--- NOTE | 2020-11-21 02:05 | PC.NURSE ---
pt sitting up in bed, pursed lip breathing rapidly states she cant catch her breath vital signs obtained pt O2 level 87-88%, equipment checked, pt repositioned, sats began rising and maintained 93-97%, pt complaining of back pain and reported she was lying flat prior to feeling this way. pt lungs are clear but exp diminished, color normal, pt states she still feels like she can't catch her breath, charge loader consulted and agreed to give pain medication and reassess, pt agreed to pain medication and trying to relax, will continue to monitor pt
[2020-11-21] MEDS: oxyCODONE HCL (*CRX) 5 MG TAB IR 2.5 MG PO (02:22)
--- NOTE | 2020-11-21 03:46 | PC.NURSE ---
pt resting in bed with no apparent distress, vital signs obtained, pulse ox 97%,
[2020-11-21] MEDS: ALBUTEROL SULFATE (*SP) INHALER 2 PUFF INHALATION ×4 (05:44→20:22)
[2020-11-21] MEDS: LEVOTHYROXINE SODIUM 75 MCG TABLET PO (05:45)
--- NOTE | 2020-11-21 07:50 | PC.NURSE ---
SN in room for morning assessment, helping patient up to chair for breakfast. SPO2 68% after activity with hi flow @ 20L, 40% FiO2. Increased to 30L and 70% FiO2. Patient recovered to 96% Kept at current settings.
--- NOTE | 2020-11-21 08:50 | PC.NURSE ---
SN in room for morning medications. Hi flow adjusted to 30L/40% FiO2, maintaining 93-94%
[2020-11-21] MEDS: LIDOCAINE 5% PATCH 1 PATCH TRANSDERM (08:52)
[2020-11-21] MEDS: DEXAMETHASONE 2 MG TABLET 6 MG PO (08:53)
[2020-11-21] MEDS: amLODIPine BESYLATE 5 MG TABLET PO (08:53)
[2020-11-21] MEDS: ENOXAPARIN 60 MG/0.6 ML SYRINGE SUB-Q ×2 (08:53→20:22)
[2020-11-21] MEDS: BENZONATATE 100 MG CAPSULE PO ×3 (08:53→17:04)
--- NOTE | 2020-11-21 10:45 | PC.NURSE ---
SN assisted patient from bedside chair to commode and back to bed, SPO2 dropped to 80% with activity, recovered after 3-4 minutes of coached pursed lip breathing. SPO2 92% with Hi flow maintained at 30L / 40%.
--- NOTE | 2020-11-21 13:36 | P.PN_ITS ---
Progress Note: A&P Assessment and Plan (1) Physical deconditioning: Code(s): R53.81 - Other malaise Status: Acute Assessment and Plan: * Patient was a swing bed patient due to increased need for supplementary o xygen patient transition to inpatient (2) Anemia of chronic disease: Code(s): D63.8 - Anemia in other chronic diseases classified elsewhere Status: Acute Assessment and Plan: * Patient's H&H unchanged * Will start iron supplement * Monitor H&H (3) Lytic bone lesions on xray: Code(s): M89.9 - Disorder of bone, unspecified Status: Acute Assessment and Plan: * Seen by Dr. Ontiveros butadiene convertor operator/oncologist * patient lab results faxed to office Dr. Ontiveros is working patient up for multiple myeloma * Oncology consulted at previous hospital, immunology studies sent to butadiene convertor operator oncologist * Will follow up with Dr. Ontiveros after 1 week after discharge (4) COVID-19: Code(s): U07.1 - COVID-19 Status: Acute Assessment and Plan: * Patient tested 11/07/2020, patient's quarantine prolonged due to patient being immunocompromised we will and 11/26 * remdesivir started 11/14/2020 completed and dexamethasone 07/11 * Patient currently on 30 L with FiO2 and 42% patient oxygen level weaning down she is tolerated. Patient previously on 55 L * X-ray worsening, will repeat in a couple of days * Blood cultures no growth * CTA negative for PE * Lactic acid within normal limits (5) Hypothyroidism: Code(s): E03.9 - Hypothyroidism, unspecified Status: Chronic Assessment and Plan: * Continue Synthroid 75 mg daily (6) Hypercholesterolemia: Code(s): E78.00 - Pure hypercholesterolemia, unspecified Status: Chronic Assessment and Plan: * Continue statins (7) Elevated blood pressure reading: Code(s): R03.0 - Elevated blood-pressure reading, without diagnosis of hypertension Status: Acute Assessment and Plan: * Patient's blood pressure has been elevated since admission 143/93has improved * Continue Norvasc 5 mg * Continue vital signs as ordered Will adjust medication as needed Review of Systems Review of Systems: All systems reviewed & are unremarkable except as noted in HPI and below (10 point system review) Exam Narrative: Exam Narrative: GENERAL: This is a well-nourished, well-developed patient, in no apparent distress. HEAD: normocephalic, atraumatic. EYES: PERRL. Sclera clear/white. Vision is grossly intact. EARS: External ears normal, auditory canals clear and without drainage, TMs normal without perforation. Hearing grossly intact. NOSE: External nose normal with no obvious nasal discharge, nares without redness, no rhinorrhea. THROAT: Mucous membranes moist, posterior pharynx clear. NECK: Neck supple, non-tender without lymphadenopathy, masses or thyromegaly. CARDIOVASCULAR: Regular rate and rhythm without murmurs, gallops, or rubs. RESPIRATORY: Diminished breath sounds in upper lobe GASTROINTESTINAL: Abdomen soft, non-tender, nondistended. Bowel sounds are active. No hepato-splenomegaly, or palpable masses. No guarding. SKIN: warm, intact with no suspicious lesions or rash, good texture and turgor. NEURO: awake, alert, and oriented to person, place and time. There were no obvious focal neurologic abnormalities. Steady gait EXTREMITIES: Normal range of motion. No edema. No calf tenderness. Negative Homans sign bilaterally. BACK: Nontender without deformity or crepitance. No flank tenderness. Objective
--- NOTE | 2020-11-21 13:36 | WPDPN ---
Progress Note: A&P Assessment and Plan (1) Physical deconditioning: Code(s): R53.81 - Other malaise Status: Acute Assessment and Plan: Patient was a swing bed patient due to increased need for supplementary oxygen patient transition to inpatient (2) Anemia of chronic disease: Code(s): D63.8 - Anemia in other chronic diseases classified elsewhere Status: Acute Assessment and Plan: Patient's H&H unchanged Will start iron supplement Monitor H&H (3) Lytic bone lesions on xray: Code(s): M89.9 - Disorder of bone, unspecified Status: Acute Assessment and Plan: Seen by Dr. Ontiveros packing tractor machine operator/oncologist patient lab results faxed to office Dr. Ontiveros is working patient up for multiple myeloma Oncology consulted at previous hospital, immunology studies sent to packing tractor machine operator oncologist Will follow up with Dr. Ontiveros after 1 week after discharge (4) COVID-19: Code(s): U07.1 - COVID-19 Status: Acute Assessment and Plan: Patient tested 11/07/2020, patient's quarantine prolonged due to patient being immunocompromised we will and 11/26 remdesivir started 11/14/2020 completed and dexamethasone 07/11 Patient currently on 30 L with FiO2 and 42% patient oxygen level weaning down she is tolerated. Patient previously on 55 L X-ray worsening, will repeat in a couple of days Blood cultures no growth CTA negative for PE Lactic acid within normal limits (5) Hypothyroidism: Code(s): E03.9 - Hypothyroidism, unspecified Status: Chronic Assessment and Plan: Continue Synthroid 75 mg daily (6) Hypercholesterolemia: Code(s): E78.00 - Pure hypercholesterolemia, unspecified Status: Chronic Assessment and Plan: Continue statins (7) Elevated blood pressure reading: Code(s): R03.0 - Elevated blood-pressure reading, without diagnosis of hypertension Status: Acute Assessment and Plan: Patient's blood pressure has been elevated since admission 143/93has improved Continue Norvasc 5 mg Continue vital signs as ordered Will adjust medication as needed Review of Systems Review of Systems: All systems reviewed & are unremarkable except as noted in HPI and below (10 point system review) Exam Narrative: Exam Narrative: GENERAL: This is a well-nourished, well-developed patient, in no apparent distress. HEAD: normocephalic, atraumatic. EYES: PERRL. Sclera clear/white. Vision is grossly intact. EARS: External ears normal, auditory canals clear and without drainage, TMs normal without perforation. Hearing grossly intact. NOSE: External nose normal with no obvious nasal discharge, nares without redness, no rhinorrhea. THROAT: Mucous membranes moist, posterior pharynx clear. NECK: Neck supple, non-tender without lymphadenopathy, masses or thyromegaly. CARDIOVASCULAR: Regular rate and rhythm without murmurs, gallops, or rubs. RESPIRATORY: Diminished breath sounds in upper lobe GASTROINTESTINAL: Abdomen soft, non-tender, nondistended. Bowel sounds are active. No hepato-splenomegaly, or palpable masses. No guarding. SKIN: warm, intact with no suspicious lesions or rash, good texture and turgor. NEURO: awake, alert, and oriented to person, place and time. There were no obvious focal neurologic abnormalities. Steady gait EXTREMITIES: Normal range of motion. No edema. No calf tenderness. Negative Homans sign bilaterally. BACK: Nontender without deformity or crepitance. No flank tenderness. Objective Data Vital Signs Vital Signs: Vital Signs - 24 hr 11/20/20 15:44 11/20/20 20:40 11/21/20 00:00 Temperature 96.8 F L 97.2 F L 96.8 F L Pulse Rate 79 74 74 Respiratory Rate 20 20 20 Blood Pressure 151/58 H 126/70 149/80 H Pulse Oximetry 92 95 96 11/21/20 02:05 11/21/20 02:50 11/21/20 03:44 Temperature 96.8 F L Pulse Rate 79 65 Respiratory Rate 28 H 22 H 22 H Blood Pressure 115/59 L 134/65 Pulse Oximetr
[2020-11-21] MEDS: SIMVASTATIN 10 MG TABLET PO (20:22)
[2020-11-21] MEDS: LORazepam (*CRX) 0.5 MG TABLET PO (20:22)
[2020-11-22] VITALS (7 sets, daily range): BP systolic 120–143; BP diastolic 55–79; PULSE 70–99; RESP 16–24; TEMP 36.3–36.9; O2SAT 91–96
--- NOTE | 2020-11-22 02:54 | PM.EVENT ---
Event Note Event Note Event Note: For 11/21/20: I have examined the patient and reviewed the chart. I discussed the patient's care with Laura Walter APN and agree with her assessment and plan.
--- NOTE | 2020-11-22 02:55 | PM.EVENT ---
Event Note Event Note Event Note: For 11/21/20: I have examined the patient and reviewed the chart. I discussed the patient's care with Laura aWlter APN and agree with her assessment and plan.
--- NOTE | 2020-11-22 05:50 | PC.NURSE ---
Patient has transferred herself to commode x4 this shift without putting call light on. Reminded of safety concerns.
[2020-11-22] MEDS: LEVOTHYROXINE SODIUM 75 MCG TABLET PO (05:58)
[2020-11-22] MEDS: ALBUTEROL SULFATE (*SP) INHALER 2 PUFF INHALATION ×4 (05:58→19:49)
--- NOTE | 2020-11-22 07:15 | PC.NURSE ---
Patient called to have help to commode, when SN entered room patient was already up to commode. Patient stated she was short of breath, SN proceeded to check patients vitals, SPO2 registering at 68% initially. After 5 minutes coached pursed lip breathing, patient at 76%, Hi flow oxygen increased, SPO2 came up to 80% after another 5 minutes. SN called for RT support. Hi-flow increased to 55L/65% bringing patients SPO2 up to 92%. SN exited room at 7:45
[2020-11-22] MEDS: LIDOCAINE 5% PATCH 1 PATCH TRANSDERM (09:53)
[2020-11-22] MEDS: DEXAMETHASONE 2 MG TABLET 6 MG PO (09:54)
[2020-11-22] MEDS: BENZONATATE 100 MG CAPSULE PO ×3 (09:54→17:00)
[2020-11-22] MEDS: ENOXAPARIN 60 MG/0.6 ML SYRINGE SUB-Q ×2 (09:54→21:29)
[2020-11-22] MEDS: amLODIPine BESYLATE 5 MG TABLET PO (09:54)
--- NOTE | 2020-11-22 14:44 | P.PN_ITS ---
Progress Note: A&P Assessment and Plan (1) Physical deconditioning: Code(s): R53.81 - Other malaise <Abelino Colin RN CASE MGR-C - Last Filed: 11/22/20 15:03> Status: Acute <Abelino Colin RN CASE MGR-C - Last Filed: 11/22/20 15:03> Assessment and Plan: * Patient was a swing bed patient due to increased need for s upplementary oxygen patient transition to inpatient <Abelino Colin RN CASE MGR-C - Last Filed: 11/22/20 15:03> (2) Anemia of chronic disease: Code(s): D63.8 - Anemia in other chronic diseases classified elsewhere <Abelino Colin RN CASE MGR-C - Last Filed: 11/22/20 15:03> Status: Acute <Abelino Colin RN CASE MGR-C - Last Filed: 11/22/20 15:03> Assessment and Plan: * Patient's H&H unchanged * Will start iron supplement * Monitor H&H Anemia stable H/H 9.2.2 <Abelino Colin RN CASE MGR-C - Last Filed: 11/22/20 15:03> (3) Lytic bone lesions on xray: Code(s): M89.9 - Disorder of bone, unspecified <Abelino Colin RN CASE MGR-C - Last Filed: 11/22/20 15:03> Status: Acute <Abelino Colin RN CASE MGR-C - Last Filed: 11/22/20 15:03> Assessment and Plan: * Seen by Dr. Ontiveros youth associate/oncologist * patient lab results faxed to office Dr. Ontiveros is working patient up for multiple myeloma * Oncology consulted at previous hospital, immunology studies sent to youth associate oncologist * Will follow up with Dr. Ontiveros after 1 week after discharge will need to send Dr. Ontiveros results of blood work he wanted while patient was at [place] <Abelino Colin RN CASE MGR-C - Last Filed: 11/22/20 15:03> (4) COVID-19: Code(s): U07.1 - COVID-19 <Abelino Colin RN CASE MGR-C - Last Filed: 11/22/20 15:03> Status: Acute <Abelino Colin RN CASE MGR-C - Last Filed: 11/22/20 15:03> Assessment and Plan: * Patient tested 11/07/2020, patient's quarantine prolonged due to patient being immunocompromised we will and 11/26 * remdesivir started 11/14/2020 completed and dexamethasone * Patient currently on 25L high flow satting in the 90s patient oxygen level has been titrated down since admission previously 55 L high flow * X-ray worsening * Blood cultures no growth * CTA negative for PE * Lactic acid within normal limits have a call out her wedger and gluer Dr. Sol <Abelino Colin RN CASE MGR-C - Last Filed: 11/22/20 15:03> (5) Hypothyroidism: Code(s): E03.9 - Hypothyroidism, unspecified <Abelino Colin RN CASE MGR-C - Last Filed: 11/22/20 15:03> Status: Chronic <Abelino Colin RN CASE MGR-C - Last Filed: 11/22/20 15:03> Assessment and Plan: * Continue Synthroid 75 mg daily <Abelino Colin RN CASE MGR-C - Last Filed: 11/22/20 15:03> (6) Hypercholesterolemia: Code(s): E78.00 - Pure hypercholesterolemia, unspecified <Abelino Colin RN CASE MGR-C - Last Filed: 11/22/20 15:03> Status: Chronic <Abelino Colin RN CASE MGR-C - Last Filed: 11/22/20 15:03> Assessment and Plan: * Continue statins <Abelino Colin RN CASE MGR-C - Last Filed: 11/22/20 15:03> (7) Elevated blood pressure reading: Code(s): R03.0 - Elevated blood-pressure reading, without diagnosis of hypertension <Abelino Colin RN CASE MGR-C - Last Filed: 11/22/20 15:03> Status: Acute <Abelino Colin RN CASE MGR-C - Last Filed: 11/22/20 15:03> Assessment and Plan: * Patient's blood pressure has been elevated since admission 136/72 has improved * Continue Norvasc 5 mg * Continue vital signs as ordered Will adjust medication as needed vital signs stable at this time no changes will be made to medication <Yossi
--- NOTE | 2020-11-22 14:44 | WPDPN ---
Progress Note: A&P Assessment and Plan (1) Physical deconditioning: Code(s): R53.81 - Other malaise <Abelino Colin, SHOT COAT TENDER-C - Last Filed: 11/22/20 15:03> Status: Acute <Abelino Colin, SHOT COAT TENDER-C - Last Filed: 11/22/20 15:03> Assessment and Plan: Patient was a swing bed patient due to increased need for supplementary oxygen patient transition to inpatient <Abelino Colin, SHOT COAT TENDER-C - Last Filed: 11/22/20 15:03> (2) Anemia of chronic disease: Code(s): D63.8 - Anemia in other chronic diseases classified elsewhere <Abelino Colin, SHOT COAT TENDER-C - Last Filed: 11/22/20 15:03> Status: Acute <Abelino Colin, SHOT COAT TENDER-C - Last Filed: 11/22/20 15:03> Assessment and Plan: Patient's H&H unchanged Will start iron supplement Monitor H&H Anemia stable H/H 9.2.2 <Abelino Colin, SHOT COAT TENDER-C - Last Filed: 11/22/20 15:03> (3) Lytic bone lesions on xray: Code(s): M89.9 - Disorder of bone, unspecified <Abelino Colin, SHOT COAT TENDER-C - Last Filed: 11/22/20 15:03> Status: Acute <Abelino Colin, SHOT COAT TENDER-C - Last Filed: 11/22/20 15:03> Assessment and Plan: Seen by Dr. Ontiveros ethnoarchaeology professor/oncologist patient lab results faxed to office Dr. Ontiveros is working patient up for multiple myeloma Oncology consulted at [facility], immunology studies sent to ethnoarchaeology professor oncologist Will follow up with Dr. Ontiveros after 1 week after discharge will need to send Dr. Ontiveros results of blood work he wanted while patient was at [place] <Abelino Colin, SHOT COAT TENDER-C - Last Filed: 11/22/20 15:03> (4) COVID-19: Code(s): U07.1 - COVID-19 <Abelino Colin, SHOT COAT TENDER-C - Last Filed: 11/22/20 15:03> Status: Acute <Abelino SanchezMATTHEW WallaceC - Last Filed: 11/22/20 15:03> Assessment and Plan: Patient tested 11/07/2020, patient's quarantine prolonged due to patient being immunocompromised we will and 11/26 remdesivir started 11/14/2020 completed and dexamethasone Patient currently on 25L high flow satting in the 90s patient oxygen level has been titrated down since admission previously 55 L high flow X-ray worsening Blood cultures no growth CTA negative for PE Lactic acid within normal limits have a call out her physiological chemist Dr. Sol <Abelino LauraMATTHEW WallaceC - Last Filed: 11/22/20 15:03> (5) Hypothyroidism: Code(s): E03.9 - Hypothyroidism, unspecified <Abelino LauraMATTHEW WallaceC - Last Filed: 11/22/20 15:03> Status: Chronic <Abelino LauraSalome Colin APN-C - Last Filed: 11/22/20 15:03> Assessment and Plan: Continue Synthroid 75 mg daily <Abelino LauraMATTHEW WallaceC - Last Filed: 11/22/20 15:03> (6) Hypercholesterolemia: Code(s): E78.00 - Pure hypercholesterolemia, unspecified <Abelino LauraSalome Colin APN-C - Last Filed: 11/22/20 15:03> Status: Chronic <Abelino SanchezSalome Colin APN-C - Last Filed: 11/22/20 15:03> Assessment and Plan: Continue statins <Abelino LauraSalome Colin APN-C - Last Filed: 11/22/20 15:03> (7) Elevated blood pressure reading: Code(s): R03.0 - Elevated blood-pressure reading, without diagnosis of hypertension <Abelino SanchezSalome Colin APN-C - Last Filed: 11/22/20 15:03> Status: Acute <Abelino SanchezSalome Colin APN-C - Last Filed: 11/22/20 15:03> Assessment and Plan: Patient's blood pressure has been elevated since admission 136/72 has improved Continue Norvasc 5 mg Continue vital signs as ordered Will adjust medication as needed vital signs stable at this time no changes will be made to medication <Abelino Laura. Vogt, SHOT COAT TENDER-C - Last Filed: 11/22/20 15:03> Review of Systems Constitutional: Constitutional: Reports no additional constitutional complaints <Abelino Colin APN-Nazanin - Last Filed: 11/22/20 15:03> Cardiovascular: Cardiovascular: Reports no additional cardiovascular complaints, Denies chest pain, Denies chest pain at rest and Denies chest pain with
[2020-11-22] MEDS: oxyCODONE HCL (*CRX) 5 MG TAB IR 2.5 MG PO (19:41)
[2020-11-22] MEDS: SIMVASTATIN 10 MG TABLET PO (21:27)
[2020-11-23] VITALS (7 sets, daily range): BP systolic 110–137; BP diastolic 66–79; PULSE 64–88; RESP 20–22; TEMP 36.1–36.6; O2SAT 91–98
[2020-11-23] MEDS: oxyCODONE HCL (*CRX) 5 MG TAB IR 2.5 MG PO (02:15)
[2020-11-23] MEDS: LEVOTHYROXINE SODIUM 75 MCG TABLET PO (05:57)
[2020-11-23] MEDS: ALBUTEROL SULFATE (*SP) INHALER 2 PUFF INHALATION ×4 (05:57→21:09)
[2020-11-23 05:58] LABS: Hematocrit 28.4 % (35.0-42.0); Hemoglobin 9.4 g/dL (11.7-13.8); Mean Corpuscular HGB Conc 33.1 g/dL (32.0-36.0); Mean Corpuscular Hemoglobin 28.8 pg (27.0-31.0); Mean Corpuscular Volume 87.1 fL (78.0-102.0); Mean Platelet Volume 10.1 fl (9.2-11.8); Platelet Count Result 344 K/mm3 (150-420); Red Blood Count 3.26 M/mm3 (4.20-5.40); Red Cell Distribution Width 13.5 % (11.6-14.4)
[2020-11-23 06:10] LABS: Anion Gap 6 mmol/L (8-16); Blood Urea Nitrogen 28 mg/dL (7-18); Calcium 8.4 mg/dL (8.5-10.1); Carbon Dioxide 25 mmol/L (21-32); Chloride 100 mmol/L (98-108); Estimated CRCL calculation 39 ml/min; Estimated Glomerular Filt Rate > 60; Glucose 99 mg/dL (70-99); Osmolality Calculated 277 mOsm/kg (285-295); Sodium 131 mmol/L (136-145)
[2020-11-23] MEDS: LIDOCAINE 5% PATCH 2 PATCH TRANSDERM (09:14)
[2020-11-23] MEDS: ENOXAPARIN 60 MG/0.6 ML SYRINGE SUB-Q ×2 (09:15→21:08)
[2020-11-23] MEDS: amLODIPine BESYLATE 5 MG TABLET PO (09:15)
[2020-11-23] MEDS: DEXAMETHASONE 2 MG TABLET 6 MG PO (09:15)
[2020-11-23] MEDS: BENZONATATE 100 MG CAPSULE PO ×3 (09:15→16:53)
--- NOTE | 2020-11-23 09:55 | P.PN_ITS ---
Progress Note: A&P Assessment and Plan (1) Physical deconditioning: Code(s): R53.81 - Other malaise Status: Acute Assessment and Plan: * Patient was a swing bed patient due to increased need for supplementary o xygen patient transition to inpatient (2) Anemia of chronic disease: Code(s): D63.8 - Anemia in other chronic diseases classified elsewhere Status: Acute Assessment and Plan: * Patient's H&H unchanged * Will start iron supplement * Monitor H&H (3) Lytic bone lesions on xray: Code(s): M89.9 - Disorder of bone, unspecified Status: Acute Assessment and Plan: * Seen by Dr. Ontiveros license inspector/oncologist * patient lab results faxed to office Dr. Ontiveros is working patient up for multiple myeloma * Oncology consulted at previous hospital, immunology studies sent to license inspector oncologist * Will follow up with Dr. Ontiveros after 1 week after discharge (4) COVID-19: Code(s): U07.1 - COVID-19 Status: Acute Assessment and Plan: * Patient tested 11/07/2020, patient's quarantine prolonged due to patient being immunocompromised we will and 11/26 * remdesivir started 11/14/2020 completed and dexamethasone * Patient currently on 50l high flow FiO2 at 40% satting in the 90s patient oxygen level has been titrated down since admission previously 55 L high flow * X-ray worsening * Blood cultures no growth * CTA negative for PE * Lactic acid within normal limits (5) Hypothyroidism: Code(s): E03.9 - Hypothyroidism, unspecified Status: Chronic Assessment and Plan: * Continue Synthroid 75 mg daily (6) Hypercholesterolemia: Code(s): E78.00 - Pure hypercholesterolemia, unspecified Status: Chronic Assessment and Plan: * Continue statins (7) Elevated blood pressure reading: Code(s): R03.0 - Elevated blood-pressure reading, without diagnosis of hypertension Status: Acute Assessment and Plan: * Patient's blood pressure has been elevated since admission 110/69 has improved * Continue Norvasc 5 mg * Continue vital signs as ordered Will adjust medication as needed Review of Systems Review of Systems: All systems reviewed & are unremarkable except as noted in HPI and below (10 point system review) Exam Narrative: Exam Narrative: GENERAL: This is a well-nourished, well-developed patient, in no apparent distress. HEAD: normocephalic, atraumatic. EYES: PERRL. Sclera clear/white. Vision is grossly intact. EARS: External ears normal, auditory canals clear and without drainage, TMs normal without perforation. Hearing grossly intact. NOSE: External nose normal with no obvious nasal discharge, nares without r edness, no rhinorrhea. THROAT: Mucous membranes moist, posterior pharynx clear. NECK: Neck supple, non-tender without lymphadenopathy, masses or thyromegaly. CARDIOVASCULAR: Regular rate and rhythm without murmurs, gallops, or rubs. RESPIRATORY: Diminished breath sounds in upper lobe GASTROINTESTINAL: Abdomen soft, non-tender, nondistended. Bowel sounds are active. No hepato-splenomegaly, or palpable masses. No guarding. SKIN: warm, intact with no suspicious lesions or rash, good texture and turgor. NEURO: awake, alert, and oriented to person, place and time. There were no obvious focal neurologic abnormalities. Steady gait EXTREMITIES: Normal range of motion. No edema. No calf tenderness. Negative Homans sign bilaterally. BACK: Nontender without deformity or crepitance. No flank tenderness. Objective Data
--- NOTE | 2020-11-23 09:55 | WPDPN ---
Progress Note: A&P Assessment and Plan (1) Physical deconditioning: Code(s): R53.81 - Other malaise Status: Acute Assessment and Plan: Patient was a swing bed patient due to increased need for supplementary oxygen patient transition to inpatient (2) Anemia of chronic disease: Code(s): D63.8 - Anemia in other chronic diseases classified elsewhere Status: Acute Assessment and Plan: Patient's H&H unchanged Will start iron supplement Monitor H&H (3) Lytic bone lesions on xray: Code(s): M89.9 - Disorder of bone, unspecified Status: Acute Assessment and Plan: Seen by Dr. Ontiveros housing installer/oncologist patient lab results faxed to office Dr. Ontiveros is working patient up for multiple myeloma Oncology consulted at previous hospital, immunology studies sent to housing installer oncologist Will follow up with Dr. Ontiveros after 1 week after discharge (4) COVID-19: Code(s): U07.1 - COVID-19 Status: Acute Assessment and Plan: Patient tested 11/07/2020, patient's quarantine prolonged due to patient being immunocompromised we will and 11/26 remdesivir started 11/14/2020 completed and dexamethasone Patient currently on 50l high flow FiO2 at 40% satting in the 90s patient oxygen level has been titrated down since admission previously 55 L high flow X-ray worsening Blood cultures no growth CTA negative for PE Lactic acid within normal limits (5) Hypothyroidism: Code(s): E03.9 - Hypothyroidism, unspecified Status: Chronic Assessment and Plan: Continue Synthroid 75 mg daily (6) Hypercholesterolemia: Code(s): E78.00 - Pure hypercholesterolemia, unspecified Status: Chronic Assessment and Plan: Continue statins (7) Elevated blood pressure reading: Code(s): R03.0 - Elevated blood-pressure reading, without diagnosis of hypertension Status: Acute Assessment and Plan: Patient's blood pressure has been elevated since admission 110/69 has improved Continue Norvasc 5 mg Continue vital signs as ordered Will adjust medication as needed Review of Systems Review of Systems: All systems reviewed & are unremarkable except as noted in HPI and below (10 point system review) Exam Narrative: Exam Narrative: GENERAL: This is a well-nourished, well-developed patient, in no apparent distress. HEAD: normocephalic, atraumatic. EYES: PERRL. Sclera clear/white. Vision is grossly intact. EARS: External ears normal, auditory canals clear and without drainage, TMs normal without perforation. Hearing grossly intact. NOSE: External nose normal with no obvious nasal discharge, nares without redness, no rhinorrhea. THROAT: Mucous membranes moist, posterior pharynx clear. NECK: Neck supple, non-tender without lymphadenopathy, masses or thyromegaly. CARDIOVASCULAR: Regular rate and rhythm without murmurs, gallops, or rubs. RESPIRATORY: Diminished breath sounds in upper lobe GASTROINTESTINAL: Abdomen soft, non-tender, nondistended. Bowel sounds are active. No hepato-splenomegaly, or palpable masses. No guarding. SKIN: warm, intact with no suspicious lesions or rash, good texture and turgor. NEURO: awake, alert, and oriented to person, place and time. There were no obvious focal neurologic abnormalities. Steady gait EXTREMITIES: Normal range of motion. No edema. No calf tenderness. Negative Homans sign bilaterally. BACK: Nontender without deformity or crepitance. No flank tenderness. Objective Data Vital Signs Vital Signs: Vital Signs - 24 hr 11/22/20 12:00 11/22/20 13:30 11/22/20 16:00 Temperature 98.4 F 97.4 F L Pulse Rate 95 91 99 Respiratory Rate 20 24 H 20 Blood Pressure 120/55 L 124/69 Pulse Oximetry 95 95 91 11/22/20 20:00 11/23/20 00:00 11/23/20 04:00 Temperature 97.6 F 97.7 F 97.1 F L Pulse Rate 70 70 70 Respiratory Rate 22 H 20 22 H Blood Pressure 131/79 125/72 137/72 Pulse Oximetry 96 94 9
--- NOTE | 2020-11-23 15:49 | PM.EVENT ---
Event Note Event Note Event Note: I evaluated her this am at about 10:30 am. Based on history, note from oncology and labs, she most likely has a diagnosis of multiple myeloma. Her functional status is very poor now, I don't think she could do very well tolerating medications for this. She is almost asymptomatic. She has had back pain, probably from the lytic lesions in the lumbar area. Her kidney function seems normal. Her calcium is ok. This was probably caught relatively early. For today we will continue the same care.
[2020-11-23] MEDS: SIMVASTATIN 10 MG TABLET PO (21:08)
--- NOTE | 2020-11-23 21:32 | PC.NURSE ---
Patient choosing not to wear hi seamus nasal cannula, c/o nose being sore. [employer] checked Sp02 and patient was at 86-87% on RA. [employer] spoke with charge nurse and nurse called respiratory therapist. [employer] applied O2 mask on 5L. Connected patient to telemetry with monitoring Sp02. Patient currently at 98% on 5L via mask. Denies any SOB. No labored breathing present. Continue to monitor.
[2020-11-24] VITALS (8 sets, daily range): BP systolic 118–151; BP diastolic 68–87; PULSE 64–74; RESP 18–24; TEMP 36.1–36.7; O2SAT 90–98
[2020-11-24] MEDS: oxyCODONE HCL (*CRX) 5 MG TAB IR 2.5 MG PO (01:23)
[2020-11-24 04:48] LABS: Hematocrit 33.3 % (35.0-42.0); Hemoglobin 10.8 g/dL (11.7-13.8); Mean Corpuscular HGB Conc 32.4 g/dL (32.0-36.0); Mean Corpuscular Hemoglobin 28.6 pg (27.0-31.0); Mean Corpuscular Volume 88.1 fL (78.0-102.0); Platelet Count Result 392 K/mm3 (150-420); Red Blood Count 3.78 M/mm3 (4.20-5.40); Red Cell Distribution Width 13.8 % (11.6-14.4); White Blood Count 9.6 K/mm3 (4.8-10.8)
[2020-11-24 05:07] LABS: Alanine Aminotransferase 13 U/L (14-59); Albumin Level 2.5 g/dL (3.4-5.0); Alkaline Phosphatase 62 U/L (46-116); Anion Gap 6 mmol/L (8-16); Aspartate Amino Transferase 43 U/L (15-37); Bilirubin,Total 0.4 mg/dL (0.00-1.00); Blood Urea Nitrogen 26 mg/dL (7-18); Calcium 8.9 mg/dL (8.5-10.1); Carbon Dioxide 27 mmol/L (21-32); Chloride 99 mmol/L (98-108); Estimated CRCL calculation 34 ml/min; Estimated Glomerular Filt Rate 56; Glucose 109 mg/dL (70-99); Osmolality Calculated 279 mOsm/kg (285-295); Sodium 132 mmol/L (136-145); Total Protein 8.2 g/dL (6.4-8.2)
[2020-11-24] MEDS: ALBUTEROL SULFATE (*SP) INHALER 2 PUFF INHALATION ×4 (06:00→20:50)
[2020-11-24] MEDS: LEVOTHYROXINE SODIUM 75 MCG TABLET PO (06:01)
[2020-11-24] MEDS: LIDOCAINE 5% PATCH 2 PATCH TRANSDERM (08:53)
[2020-11-24] MEDS: ENOXAPARIN 60 MG/0.6 ML SYRINGE SUB-Q ×2 (08:54→21:07)
[2020-11-24] MEDS: BENZONATATE 100 MG CAPSULE PO ×3 (08:54→16:50)
[2020-11-24] MEDS: amLODIPine BESYLATE 5 MG TABLET PO (08:54)
[2020-11-24] MEDS: ACETAMINOPHEN 500 MG TABLET PO (08:54)
--- NOTE | 2020-11-24 12:06 | P.PN_ITS ---
Progress Note: A&P Assessment and Plan (1) Physical deconditioning: Code(s): R53.81 - Other malaise <Gloria Walter RUG SHAMPOOER-C - Last Filed: 11/24/20 12:09> Status: Acute <Gloria Walter RUG SHAMPOOER-C - Last Filed: 11/24/20 12:09> Assessment and Plan: * Patient was a swing bed patient due to increased need for supplementary oxygen patient transition to inpatient <Gloria Walter RUG SHAMPOOER-C - Last Filed: 11/24/20 12:09> (2) Anemia of chronic disease: Code(s): D63.8 - Anemia in other chronic diseases classified elsewhere <Gloria Walter RUG SHAMPOOER-C - Last Filed: 11/24/20 12:09> Status: Acute <Gloria Walter RUG SHAMPOOER-C - Last Filed: 11/24/20 12:09> Assessment and Plan: * Patient's H&H unchanged * Will start iron supplement * Monitor H&H <Gloria Walter RUG SHAMPOOER-C - Last Filed: 11/24/20 12:09> (3) Lytic bone lesions on xray: Code(s): M89.9 - Disorder of bone, unspecified <Gloria Walter RUG SHAMPOOER-C - Last Filed: 11/24/20 12:09> Status: Acute <Gloria Walter RUG SHAMPOOER-C - Last Filed: 11/24/20 12:09> Assessment and Plan: * Seen by Dr. Ontiveros rice cleaning machine tender/oncologist * patient lab results faxed to office Dr. Ontiveros is working patient up for multiple myeloma * Oncology consulted at previous hospital, immunology studies sent to rice cleaning machine tender oncologist * Will follow up with Dr. Ontiveros after 1 week after discharge <Gloria VallejoSalome Jose Angel RUG SHAMPOOER-C - Last Filed: 11/24/20 12:09> (4) COVID-19: Code(s): U07.1 - COVID-19 <Gloria VallejoSalome Jose Angel RUG SHAMPOOER-C - Last Filed: 11/24/20 12:09> Status: Acute <Gloria VallejoSalome Jose Angel RUG SHAMPOOER-C - Last Filed: 11/24/20 12:09> Assessment and Plan: * Patient tested 11/07/2020, patient's quarantine prolonged due to patient being immunocompromised we will and 11/26 * remdesivir started 11/14/2020 completed and dexamethasone * Patient currently on 50l high flow FiO2 at 40% satting in the 90s patient oxygen level has been titrated down since admission previously 55 L high flow * X-ray worsening * Blood cultures no growth * CTA negative for PE * Lactic acid within normal limits <Gloria Walter FAN-C - Last Filed: 11/24/20 12:09> (5) Hypothyroidism: Code(s): E03.9 - Hypothyroidism, unspecified <Gloria Walter FAN-C - Last Filed: 11/24/20 12:09> Status: Chronic <Gloria Walter SHANNONC - Last Filed: 11/24/20 12:09> Assessment and Plan: * Continue Synthroid 75 mg daily <Gloria Walter FAN-C - Last Filed: 11/24/20 12:09> (6) Hypercholesterolemia: Code(s): E78.00 - Pure hypercholesterolemia, unspecified <Gloria Walter FAN-C - Last Filed: 11/24/20 12:09> Status: Chronic <Gloria Walter SHANNONC - Last Filed: 11/24/20 12:09> Assessment and Plan: * Continue statins <Gloria Walter FAN-C - Last Filed: 11/24/20 12:09> (7) Elevated blood pressure reading: Code(s): R03.0 - Elevated blood-pressure reading, without diagnosis of hypertension <Gloria Walter FAN-C - Last Filed: 11/24/20 12:09> Status: Acute <Gloria Walter FAN-C - Last Filed: 11/24/20 12:09> Assessment and Plan: * Patient's blood pressure has been elevated since admission has improved * Continue Norvasc 5 mg * Continue vital signs as ordered Will adjust medication as needed <Gloria Walter FAN-C - Last Filed: 11/24/20 12:09> Review of Systems 2 Review of Systems: All systems reviewed & are unremarkable except as noted in HPI and below (10 point system review)
--- NOTE | 2020-11-24 12:06 | WPDPN ---
Progress Note: A&P Assessment and Plan (1) Physical deconditioning: Code(s): R53.81 - Other malaise <Gloria Walter SPA TECHNICIAN-C - Last Filed: 11/24/20 12:09> Status: Acute <Gloria Walter SPA TECHNICIAN-C - Last Filed: 11/24/20 12:09> Assessment and Plan: Patient was a swing bed patient due to increased need for supplementary oxygen patient transition to inpatient <Gloria Walter SPA TECHNICIAN-C - Last Filed: 11/24/20 12:09> (2) Anemia of chronic disease: Code(s): D63.8 - Anemia in other chronic diseases classified elsewhere <Gloria Walter SPA TECHNICIAN-C - Last Filed: 11/24/20 12:09> Status: Acute <Gloria Walter SPA TECHNICIAN-C - Last Filed: 11/24/20 12:09> Assessment and Plan: Patient's H&H unchanged Will start iron supplement Monitor H&H <Gloria Walter SPA TECHNICIAN-C - Last Filed: 11/24/20 12:09> (3) Lytic bone lesions on xray: Code(s): M89.9 - Disorder of bone, unspecified <Gloria Walter SPA TECHNICIAN-C - Last Filed: 11/24/20 12:09> Status: Acute <Gloria Walter SPA TECHNICIAN-C - Last Filed: 11/24/20 12:09> Assessment and Plan: Seen by Dr. Ontiveros cash management clerk/oncologist patient lab results faxed to office Dr. Ontiveros is working patient up for multiple myeloma Oncology consulted at [facility], immunology studies sent to cash management clerk oncologist Will follow up with Dr. Ontiveros after 1 week after discharge <Gloria Walter SPA TECHNICIAN-C - Last Filed: 11/24/20 12:09> (4) COVID-19: Code(s): U07.1 - COVID-19 <Gloria Walter SPA TECHNICIAN-C - Last Filed: 11/24/20 12:09> Status: Acute <Gloria Walter SPA TECHNICIAN-C - Last Filed: 11/24/20 12:09> Assessment and Plan: Patient tested 11/07/2020, patient's quarantine prolonged due to patient being immunocompromised we will and 11/26 remdesivir started 11/14/2020 completed and dexamethasone Patient currently on 50l high flow FiO2 at 40% satting in the 90s patient oxygen level has been titrated down since admission previously 55 L high flow X-ray worsening Blood cultures no growth CTA negative for PE Lactic acid within normal limits <SHARATH Cruz - Last Filed: 11/24/20 12:09> (5) Hypothyroidism: Code(s): E03.9 - Hypothyroidism, unspecified <SHANNON CruzC - Last Filed: 11/24/20 12:09> Status: Chronic <SHARATH Cruz - Last Filed: 11/24/20 12:09> Assessment and Plan: Continue Synthroid 75 mg daily <SHARATH Cruz - Last Filed: 11/24/20 12:09> (6) Hypercholesterolemia: Code(s): E78.00 - Pure hypercholesterolemia, unspecified <SHANNON CruzC - Last Filed: 11/24/20 12:09> Status: Chronic <SHARATH Cruz - Last Filed: 11/24/20 12:09> Assessment and Plan: Continue statins <SHARATH Cruz - Last Filed: 11/24/20 12:09> (7) Elevated blood pressure reading: Code(s): R03.0 - Elevated blood-pressure reading, without diagnosis of hypertension <SHARATH Cruz - Last Filed: 11/24/20 12:09> Status: Acute <SHARATH Cruz - Last Filed: 11/24/20 12:09> Assessment and Plan: Patient's blood pressure has been elevated since admission has improved Continue Norvasc 5 mg Continue vital signs as ordered Will adjust medication as needed <SHARATH Cruz - Last Filed: 11/24/20 12:09> Review of Systems Review of Systems: All systems reviewed & are unremarkable except as noted in HPI and below (10 point system review) <SHARATH Cruz - Last Filed: 11/24/20 12:09> Exam Narrative: Exam Narrative: GENERAL: This is a well-nourished, well-developed patient, in no apparent distress. HEAD: normocephalic, atraumatic. EYES: PERRL. Sclera clear/white. Vision is grossly intact. EARS: External ears normal, auditory canals clear and without drainage, TMs normal without perforation. Hearing
--- NOTE | 2020-11-24 13:30 | ECHO_ITS ---
Patient Info Name: Beverly Linares Age: 84 years : 1935 Gender: Female Ht: 65 in Wt: 138 lbs BSA: 1.70 m2 HR: 82 bpm BP: 121 / 68 mmHg Technical Quality: Good Exam Date: 11/24/2020 1:51 PM Exam Location: [facility] Patient Status: Inpatient Admit Date: 11/13/2020 Staff Ordering Physician: Gloria WalterP-Nazanin Water Resources Engineer: Yuri Mckinney, JORGE, RT Attending Provider: Larry Alston MD Referring Physician: Jose Angel VILLEDA; Exam Type: CA echo doppler color flow Study Info Indications R06.00 - Dyspnea, unspecified Complete two-dimensional, color flow and Doppler transthoracic echocardiogram is performed. Summary 1. Complete two-dimensional, color flow and Doppler transthoracic echocardiogram is performed. 2. Left ventricular chamber dimension is normal. 3. Left ventricular systolic function is normal, estimated at 60-65%. 4. There is mildly increased left ventricular wall thickness. 5. The left ventricular diastolic function is grade I diastolic dysfunction. 6. E/e' 11 is mildly elevated. 7. There is mild aortic valve sclerosis. 8. There is mild aortic valve regurgitation. 9. The mitral valve has mildly calcified annulus. 10. No pulmonary hypertension, estimated pulmonary arterial systolic pressure is 28 mmHg. Left Ventricle E/e' 11 is mildly elevated. Left ventricular chamber dimension is normal. Left ventricular systolic function is normal, estimated at 60-65%. There is mildly increased left ventricular wall thickness. The left ventricular diastolic function is grade I diastolic dysfunction. Right Ventricle Right ventricular chamber dimension is normal. Right ventricular systolic function is normal. Left Atria Left atrial chamber dimension is normal. Right Atria Right atrial chamber dimension is normal. Aortic Valve The aortic valve is trileaflet. There is mild aortic valve sclerosis. There is no aortic valve stenosis. There is mild aortic valve regurgitation. Pulmonic Valve There is no pulmonic regurgitation. Mitral Valve The mitral valve has mildly calcified annulus. There is no mitral valve stenosis. There is no mitral valve regurgitation. Tricuspid Valve There is no tricuspid valve regurgitation. No pulmonary hypertension, estimated pulmonary arterial systolic pressure is 28 mmHg. Pericardium/Pleural There is no pericardial effusion. Inferior Vena Cava Normal inferior vena cava with >50% collapse upon inspiration consistent with normal right atrial pressure, 5 mmHg. Aorta The aortic root size at the sinus of Valsalva is normal. Left Ventricular Outflow Tract Name Value Normal LVOT 2D LVOT Diameter 1.9 cm LVOT Doppler LVOT Peak Velocity 89 cm/s LVOT Peak Gradient 3 mmHg LVOT Mean Gradient 1 mmHg LVOT VTI 16 cm LVOT VTI/AV VTI Ratio 0.8 LVOT Stroke Volume 46 ml Mitral Valve Name
[2020-11-24] MEDS: SIMVASTATIN 10 MG TABLET PO (21:07)
--- NOTE | 2020-11-24 23:22 | PM.EVENT ---
Event Note Event Note Event Note: I have examined the patient and reviewed the chart. I discussed patient's care with Laura Walter APN and agree with her assessment and plan.
[2020-11-25 00:15] VITALS: BP 131/57; PULSE 77; RESP 20; TEMP 36.3; O2SAT 89
--- NOTE | 2020-11-25 02:30 | PC.NURSE ---
pt sleeping, respirations even and regular, no evidence of distress noted
[2020-11-25] MEDS: ALBUTEROL SULFATE (*SP) INHALER 2 PUFF INHALATION ×4 (05:34→20:20)
[2020-11-25] MEDS: LEVOTHYROXINE SODIUM 75 MCG TABLET PO (05:34)
[2020-11-25 08:00] VITALS: BP 129/64; PULSE 70; RESP 18; TEMP 36.4; O2SAT 92
--- NOTE | 2020-11-25 09:04 | P.PN_ITS ---
Progress Note: A&P Assessment and Plan (1) Physical deconditioning: Code(s): R53.81 - Other malaise Status: Acute Assessment and Plan: * Patient was a swing bed patient due to increased need for supplementary o xygen patient transition to inpatient (2) Anemia of chronic disease: Code(s): D63.8 - Anemia in other chronic diseases classified elsewhere Status: Acute Assessment and Plan: * Patient's H&H unchanged * Will start iron supplement * Monitor H&H (3) Lytic bone lesions on xray: Code(s): M89.9 - Disorder of bone, unspecified Status: Acute Assessment and Plan: * Seen by Dr. Ontiveros water pump operator/oncologist * patient lab results faxed to office Dr. Ontiveros is working patient up for multiple myeloma * Oncology consulted at previous hospital, immunology studies sent to water pump operator oncologist * Will follow up with Dr. Ontiveros after 1 week after discharge * Dr. Ontiveros will need to be contacted on 11/28/2020. Afterwards patient will have to be informed of diagnosis (4) COVID-19: Code(s): U07.1 - COVID-19 Status: Acute Assessment and Plan: * Patient tested 11/07/2020, patient's quarantine prolonged due to patient being immunocompromised we will and 11/26 * remdesivir started 11/14/2020 completed and dexamethasone * Patient currently on 11 L high flow previously 55 L high flow * X-ray worsening * Blood cultures no growth * CTA negative for PE * Lactic acid within normal limits (5) Hypothyroidism: Code(s): E03.9 - Hypothyroidism, unspecified Status: Chronic Assessment and Plan: * Continue Synthroid 75 mg daily (6) Hypercholesterolemia: Code(s): E78.00 - Pure hypercholesterolemia, unspecified Status: Chronic Assessment and Plan: * Continue statins (7) Elevated blood pressure reading: Code(s): R03.0 - Elevated blood-pressure reading, without diagnosis of hypertension Status: Acute Assessment and Plan: * Patient's blood pressure has been elevated since admission has improved * Continue Norvasc 5 mg * Continue vital signs as ordered Will adjust medication as needed Review of Systems Review of Systems: All systems reviewed & are unremarkable except as noted in HPI and below (10 point system review) Exam Narrative: Exam Narrative: GENERAL: This is a well-nourished, well-developed patient, in no apparent distress. HEAD: normocephalic, atraumatic. EYES: PERRL. Sclera clear/white. Vision is grossly intact. EARS: External ears normal, auditory canals clear and without drainage, TMs normal without perforation. Hearing grossly intact. NOSE: External nose normal with no obvious nasal discharge, nares without redness, no rhinorrhea. THROAT: Mucous membranes moist, posterior pharynx clear. NECK: Neck supple, non-tender without lymphadenopathy, masses or thyromegaly. CARDIOVASCULAR: Regular rate and rhythm without murmurs, gallops, or rubs. RESPIRATORY: Diminished breath sounds in upper lobe GASTROINTESTINAL: Abdomen soft, non-tender, nondistended. Bowel sounds are active. No hepato-splenomegaly, or palpable masses. No guarding. SKIN: warm, intact with no suspicious lesions or rash, good texture and turgor. NEURO: awake, alert, and oriented to person, place and time. There were no obv ious focal neurologic abnormalities. Steady gait EXTREMITIES: Normal range of motion. No edema. No calf tenderness. Negative Homans sign bilaterally. BACK: Nontender without deformity or crepitance. No flank tenderness.
--- NOTE | 2020-11-25 09:04 | WPDPN ---
Progress Note: A&P Assessment and Plan (1) Physical deconditioning: Code(s): R53.81 - Other malaise Status: Acute Assessment and Plan: Patient was a swing bed patient due to increased need for supplementary oxygen patient transition to inpatient (2) Anemia of chronic disease: Code(s): D63.8 - Anemia in other chronic diseases classified elsewhere Status: Acute Assessment and Plan: Patient's H&H unchanged Will start iron supplement Monitor H&H (3) Lytic bone lesions on xray: Code(s): M89.9 - Disorder of bone, unspecified Status: Acute Assessment and Plan: Seen by Dr. Ontiveros water pump servicer/oncologist patient lab results faxed to office Dr. Ontiveros is working patient up for multiple myeloma Oncology consulted at previous hospital, immunology studies sent to water pump servicer oncologist Will follow up with Dr. Ontiveros after 1 week after [address] Ontiveros will need to be contacted on 11/28/2020. Afterwards patient will have to be informed of diagnosis (4) COVID-19: Code(s): U07.1 - COVID-19 Status: Acute Assessment and Plan: Patient tested 11/07/2020, patient's quarantine prolonged due to patient being immunocompromised we will and 11/26 remdesivir started 11/14/2020 completed and dexamethasone Patient currently on 11 L high flow previously 55 L high flow X-ray worsening Blood cultures no growth CTA negative for PE Lactic acid within normal limits (5) Hypothyroidism: Code(s): E03.9 - Hypothyroidism, unspecified Status: Chronic Assessment and Plan: Continue Synthroid 75 mg daily (6) Hypercholesterolemia: Code(s): E78.00 - Pure hypercholesterolemia, unspecified Status: Chronic Assessment and Plan: Continue statins (7) Elevated blood pressure reading: Code(s): R03.0 - Elevated blood-pressure reading, without diagnosis of hypertension Status: Acute Assessment and Plan: Patient's blood pressure has been elevated since admission has improved Continue Norvasc 5 mg Continue vital signs as ordered Will adjust medication as needed Review of Systems Review of Systems: All systems reviewed & are unremarkable except as noted in HPI and below (10 point system review) Exam Narrative: Exam Narrative: GENERAL: This is a well-nourished, well-developed patient, in no apparent distress. HEAD: normocephalic, atraumatic. EYES: PERRL. Sclera clear/white. Vision is grossly intact. EARS: External ears normal, auditory canals clear and without drainage, TMs normal without perforation. Hearing grossly intact. NOSE: External nose normal with no obvious nasal discharge, nares without redness, no rhinorrhea. THROAT: Mucous membranes moist, posterior pharynx clear. NECK: Neck supple, non-tender without lymphadenopathy, masses or thyromegaly. CARDIOVASCULAR: Regular rate and rhythm without murmurs, gallops, or rubs. RESPIRATORY: Diminished breath sounds in upper lobe GASTROINTESTINAL: Abdomen soft, non-tender, nondistended. Bowel sounds are active. No hepato-splenomegaly, or palpable masses. No guarding. SKIN: warm, intact with no suspicious lesions or rash, good texture and turgor. NEURO: awake, alert, and oriented to person, place and time. There were no obvious focal neurologic abnormalities. Steady gait EXTREMITIES: Normal range of motion. No edema. No calf tenderness. Negative Homans sign bilaterally. BACK: Nontender without deformity or crepitance. No flank tenderness. Objective Data Vital Signs Vital Signs: Vital Signs - 24 hr 11/24/20 10:00 11/24/20 11:30 11/24/20 12:00 Temperature Pulse Rate Respiratory Rate Blood Pressure Pulse Oximetry 97 98 95 11/24/20 15:36 11/25/20 00:15 11/25/20 08:00 Temperature 97.5 F L 97.3 F L 97.5 F L Pulse Rate 73 77 70 Respiratory Rate 18 20 18 Blood Pressure 118/82 131/57 L 129/64 Pulse Oximetry 93 89 L 92 Intake/Output
[2020-11-25 09:19] LABS: Hematocrit 34.4 % (35.0-42.0); Hemoglobin 11.5 g/dL (11.7-13.8); Mean Corpuscular HGB Conc 33.4 g/dL (32.0-36.0); Mean Corpuscular Hemoglobin 29.8 pg (27.0-31.0); Mean Corpuscular Volume 89.1 fL (78.0-102.0); Mean Platelet Volume 10.1 fl (9.2-11.8); Platelet Count Result 443 K/mm3 (150-420); Red Blood Count 3.86 M/mm3 (4.20-5.40); White Blood Count 11.1 K/mm3 (4.8-10.8)
[2020-11-25 09:34] LABS: Alanine Aminotransferase 16 U/L (14-59); Albumin Level 2.5 g/dL (3.4-5.0); Alkaline Phosphatase 75 U/L (46-116); Anion Gap 5 mmol/L (8-16); Aspartate Amino Transferase 44 U/L (15-37); Bilirubin,Total 0.5 mg/dL (0.00-1.00); Blood Urea Nitrogen 31 mg/dL (7-18); Carbon Dioxide 28 mmol/L (21-32); Chloride 96 mmol/L (98-108); Estimated CRCL calculation 34 ml/min; Estimated Glomerular Filt Rate 55; Glucose 144 mg/dL (70-99); Osmolality Calculated 277 mOsm/kg (285-295); Potassium 3.7 mmol/L (3.5-5.1); Sodium 129 mmol/L (136-145); Total Protein 8.5 g/dL (6.4-8.2)
[2020-11-25] MEDS: ENOXAPARIN 60 MG/0.6 ML SYRINGE SUB-Q ×2 (09:42→20:20)
[2020-11-25] MEDS: oxyCODONE HCL (*CRX) 5 MG TAB IR 2.5 MG PO (09:43)
[2020-11-25] MEDS: LIDOCAINE 5% PATCH 2 PATCH TRANSDERM (09:44)
[2020-11-25] MEDS: BENZONATATE 100 MG CAPSULE PO ×3 (09:44→17:05)
[2020-11-25] MEDS: amLODIPine BESYLATE 5 MG TABLET PO (09:44)
[2020-11-25 15:21] VITALS: BP 126/63; PULSE 94; RESP 18; TEMP 36.4; O2SAT 89
[2020-11-25 18:36] VITALS: O2SAT 93
[2020-11-25] MEDS: ACETAMINOPHEN 500 MG TABLET PO (20:19)
[2020-11-25] MEDS: SIMVASTATIN 10 MG TABLET PO (20:20)
[2020-11-25 23:40] VITALS: BP 121/53; PULSE 72; RESP 18; TEMP 36.3; O2SAT 97
[2020-11-26] MEDS: ALBUTEROL SULFATE (*SP) INHALER 2 PUFF INHALATION ×2 (05:34→11:03)
[2020-11-26] MEDS: LEVOTHYROXINE SODIUM 75 MCG TABLET PO (05:35)
[2020-11-26 08:00] VITALS: BP 131/76; PULSE 77; RESP 18; TEMP 36.3; O2SAT 97
--- NOTE | 2020-11-26 08:22 | P.PN_ITS ---
Progress Note: A&P Assessment and Plan (1) Physical deconditioning: Code(s): R53.81 - Other malaise Status: Acute Assessment and Plan: * Patient was a swing bed patient due to increased need for supplementary o xygen patient transition to inpatient (2) Anemia of chronic disease: Code(s): D63.8 - Anemia in other chronic diseases classified elsewhere Status: Acute Assessment and Plan: * Patient's H&H unchanged * Will start iron supplement * Monitor H&H (3) Lytic bone lesions on xray: Code(s): M89.9 - Disorder of bone, unspecified Status: Acute Assessment and Plan: * Seen by Dr. Ontiveros online content editor/oncologist * patient lab results faxed to office Dr. Ontiveros is working patient up for multiple myeloma * Oncology consulted at previous hospital, immunology studies sent to online content editor oncologist * Will follow up with Dr. Ontiveros after 1 week after discharge * Dr. Ontiveros will need to be contacted on 11/28/2020. Afterwards patient will have to be informed of diagnosis (4) COVID-19: Code(s): U07.1 - COVID-19 Status: Acute Assessment and Plan: * Patient tested 11/07/2020, patient's quarantine prolonged due to patient being immunocompromised we will and 11/26 * remdesivir started 11/14/2020 completed and dexamethasone * Patient currently on 11 L high flow previously 55 L high flow * X-ray worsening * Blood cultures no growth * CTA negative for PE * Lactic acid within normal limits (5) Hypothyroidism: Code(s): E03.9 - Hypothyroidism, unspecified Status: Chronic Assessment and Plan: * Continue Synthroid 75 mg daily (6) Hypercholesterolemia: Code(s): E78.00 - Pure hypercholesterolemia, unspecified Status: Chronic Assessment and Plan: * Continue statins (7) Elevated blood pressure reading: Code(s): R03.0 - Elevated blood-pressure reading, without diagnosis of hypertension Status: Acute Assessment and Plan: * Patient's blood pressure has been elevated since admission has improved * Continue Norvasc 5 mg * Continue vital signs as ordered Will adjust medication as needed Objective Data Vital Signs Vital Signs: Vital Signs - 24 hr 11/25/20 15:21 11/25/20 18:36 12/25/20 23:40 Temperature 97.6 F 97.3 F L Pulse Rate 94 72 Respiratory Rate 18 18 Blood Pressure 126/63 121/53 L Pulse Oximetry 89 L 93 97 Intake/Output Intake/Output: Intake & Output 11/23/20 11/24/20 11/25/20 11/26/20 23:59 23:59 23:59 23:59 Intake Total 340 1000 965 300 Output Total 950 Balance -610 1000 965 300 Meds/Results Medications: Active Medications Generic Name Dose Route Start Last Admin Trade Name Freq PRN Reason Stop Dose Admin Acetaminophen 500 mg 11/13/20 09:29 11/25/20 20:19 Acetaminophen 500 Mg Tablet PO 500 mg Q6H PRN Administration Pain Albuterol 2 puff 11/13/20 10:30 11/26/20 05:34 Albuterol Sulfate (*Sp) Inhaler INHALATION 2 puff QIDRT RUBÉN Administration Amlodipine Besylate 5 mg 11/17/20 09:00 11/25/20 09:44 Amlodipine Besylate 5 Mg Tablet PO 5 mg QAM RUBÉN Administration Benzonatate 100 mg 11/18/20 09:00 11/25/20 17:05 Benzonatate 100 Mg Capsule PO 100 mg TID RUBÉN Adm
--- NOTE | 2020-11-26 08:22 | WPDPN ---
Progress Note: A&P Assessment and Plan (1) Physical deconditioning: Code(s): R53.81 - Other malaise Status: Acute Assessment and Plan: Patient was a swing bed patient due to increased need for supplementary oxygen patient transition to inpatient (2) Anemia of chronic disease: Code(s): D63.8 - Anemia in other chronic diseases classified elsewhere Status: Acute Assessment and Plan: Patient's H&H unchanged Will start iron supplement Monitor H&H (3) Lytic bone lesions on xray: Code(s): M89.9 - Disorder of bone, unspecified Status: Acute Assessment and Plan: Seen by Dr. Ontiveros cotton picker operator/oncologist patient lab results faxed to office Dr. Ontiveros is working patient up for multiple myeloma Oncology consulted at previous hospital, immunology studies sent to cotton picker operator oncologist Will follow up with Dr. Ontiveros after [address] Ontiveros will need to be contacted on 11/28/2020. Afterwards patient will have to be informed of diagnosis (4) COVID-19: Code(s): U07.1 - COVID-19 Status: Acute Assessment and Plan: Patient tested 11/07/2020, patient's quarantine prolonged due to patient being immunocompromised we will and 11/26 remdesivir started 11/14/2020 completed and dexamethasone Patient currently on 11 L high flow previously 55 L high flow X-ray worsening Blood cultures no growth CTA negative for PE Lactic acid within normal limits (5) Hypothyroidism: Code(s): E03.9 - Hypothyroidism, unspecified Status: Chronic Assessment and Plan: Continue Synthroid 75 mg daily (6) Hypercholesterolemia: Code(s): E78.00 - Pure hypercholesterolemia, unspecified Status: Chronic Assessment and Plan: Continue statins (7) Elevated blood pressure reading: Code(s): R03.0 - Elevated blood-pressure reading, without diagnosis of hypertension Status: Acute Assessment and Plan: Patient's blood pressure has been elevated since admission has improved Continue Norvasc 5 mg Continue vital signs as ordered Will adjust medication as needed Objective Data Vital Signs Vital Signs: Vital Signs - 24 hr 11/25/20 15:21 11/25/20 18:36 11/25/20 23:40 Temperature 97.6 F 97.3 F L Pulse Rate 94 72 Respiratory Rate 18 18 Blood Pressure 126/63 121/53 L Pulse Oximetry 89 L 93 97 Intake/Output Intake/Output: Intake & Output 11/23/20 11/24/20 11/25/20 11/26/20 23:59 23:59 23:59 23:59 Intake Total 340 1000 965 300 Output Total 950 Balance -610 1000 965 300 Meds/Results Medications: Active Medications Generic Name Dose Route Start Last Admin Trade Name Freq PRN Reason Stop Dose Admin Acetaminophen 500 mg 11/13/20 09:29 11/25/20 20:19 Acetaminophen 500 Mg Tablet PO 500 mg Q6H PRN Administration Pain Albuterol 2 puff 11/13/20 10:30 11/26/20 05:34 Albuterol Sulfate (*Sp) Inhaler INHALATION 2 puff QIDRT RUBÉN Administration Amlodipine Besylate 5 mg 11/17/20 09:00 11/25/20 09:44 Amlodipine Besylate 5 Mg Tablet PO 5 mg QAM RUBÉN Administration Benzonatate 100 mg 11/18/20 09:00 11/25/20 17:05 Benzonatate 100 Mg Capsule PO 100 mg TID RUBÉN Administration Enoxaparin Sodium 60 mg 11/17/20 21:00 11/25/20 20:20 Enoxaparin 60 Mg/0.6 Ml Syringe SUB-Q 60 mg Q12HR RUBÉN Administration Guaifenesin/Dextromethorphan 5 ml 11/13/20 09:30 11/15/20 09:28 Guaifenesin/Dextromethorphan 5 Ml Udc PO 5 ml Q6H PRN Administration Cough Levothyroxine Sodium 75 mcg 11/16/20 06:30 11/26/20 05:35 Levothyroxine Sodium 75 Mcg Tablet PO 75 mcg DAILY@0630 RUBÉN Administration Lidocaine 2 patch 11/23/20 09:00 11/25/20 09:44 Lidocaine 5% Patch TRANSDERM 2 patch DAILY RUBÉN Administration Lorazepam 0.5 mg 11/21/20 07:03 11/21/20 20:22 Lorazepam (*Crx) 0.5 Mg Tablet PO 0.5 mg Q6H PRN Administration
[2020-11-26] MEDS: ACETAMINOPHEN 500 MG TABLET PO (10:57)
[2020-11-26] MEDS: ENOXAPARIN 60 MG/0.6 ML SYRINGE SUB-Q (10:57)
[2020-11-26] MEDS: LIDOCAINE 5% PATCH 2 PATCH TRANSDERM (10:57)
[2020-11-26] MEDS: BENZONATATE 100 MG CAPSULE PO (10:57)
[2020-11-26] MEDS: amLODIPine BESYLATE 5 MG TABLET PO (10:58)
[2020-11-26] MEDS: SODIUM CHLORIDE 1 GM TABLET PO (11:03)
--- NOTE | 2020-11-26 12:28 | PM.DS ---
DS: Admitting Diagnosis Admitting Diagnosis Admitting Diagnosis: Lytic Bone Lesions on x-ray, Physical Deconditioning, Anemia, COVID, Hypothyroidism, Hypercholesterolemia. DS: Discharge Diagnosis Discharge Diagnosis (1) Physical deconditioning: Code(s): R53.81 - Other malaise Status: Acute Assessment and Plan: Patient was a swing bed patient due to increased need for supplementary oxygen patient transition to inpatient 11/26/2020 patient's oxygen demand has improved and now is able to return back to a swing bed for physical therapy and occupational therapy to work with her to build stamina and assist with ADLs so the patient will be independent on discharge (2) Anemia of chronic disease: Code(s): D63.8 - Anemia in other chronic diseases classified elsewhere Status: Acute Assessment and Plan: Patient's H&H unchanged Will start iron supplement Monitor H&H 11/26/2020 have monitored anemia during patient's stay stable at this time (3) Lytic bone lesions on xray: Code(s): M89.9 - Disorder of bone, unspecified Status: Acute Assessment and Plan: Seen by Dr. Ontiveros engineering professionals/oncologist patient lab results faxed to office Dr. Ontiveros is working patient up for multiple myeloma Oncology consulted at previous hospital, immunology studies sent to engineering professionals oncologist Will follow up with Dr. Ontiveros after [address] Ontiveros will need to be contacted on 11/28/2020. Afterwards patient will have to be informed of diagnosis 11/26/2020 continue with plan as outlined above (4) COVID-19: Code(s): U07.1 - COVID-19 Status: Acute Assessment and Plan: Patient tested 11/07/2020, patient's quarantine prolonged due to patient being immunocompromised we will and 11/26 remdesivir started 11/14/2020 completed and dexamethasone Patient currently on 11 L high flow previously 55 L high flow X-ray worsening Blood cultures no growth CTA negative for PE Lactic acid within normal limits 11/26/2020 patient is off isolation today respiratory status has improved (5) Hypothyroidism: Code(s): E03.9 - Hypothyroidism, unspecified Status: Chronic Assessment and Plan: Continue Synthroid 75 mg daily (6) Hypercholesterolemia: Code(s): E78.00 - Pure hypercholesterolemia, unspecified Status: Chronic Assessment and Plan: Continue statins (7) Elevated blood pressure reading: Code(s): R03.0 - Elevated blood-pressure reading, without diagnosis of hypertension Status: Acute Assessment and Plan: Patient's blood pressure has been elevated since admission has improved Continue Norvasc 5 mg Continue vital signs as ordered Will adjust medication as needed DS: Summary Hospital Course Hospital Course: Patient's respiratory status improved while she was in inpatient status to the point now where patient can return to swing bed and continue working on her physical reconditioning so that she can return home and perform activities of daily living. Time Spent with Patient Time attestation: Total time spent providing and/or coordinating discharge services: < 30 min Exam Const: General: cooperative, comfortable, no acute distress, alert, awake and Physically active Nutritional Appearance: average body habitus Resp: Effort & Inspection: normal respiratory effort Auscultation: clear to auscultation bilaterally Cardio: Rate: regular rate Rhythm: regular rhythm Heart sounds: S1 normal heart sound present and S2 normal heart sound present GI: GI Palp: Yes Soft to palpation and No Tenderness to palpation present (GI) Auscultation: normal bowel sounds Discharge Plan Discharge Attending physician on discharge: Elver Patel Discharging Clinician: Abelino Colin Anticipated Discharge Date/Time: 11/26/20 13:00 Patient Disposition: Hospital Swing Bed Activity: as tolerated Diet: reg
== END 2020-11-26 12:40 | disposition swing bed (61) | DRG 177 ==
PROVIDERS: Nurse Practitioner; Nurse Practitioner Family; Admitting Provider Emergency Medicine; PCP Internal Medicine; Visit Provider Emergency Medicine
DX: U07.1 COVID-19 (principal); J12.89 Other viral pneumonia; C90.00 Multiple myeloma not having achieved remission; E78.00 Pure hypercholesterolemia, unspecified; E03.9 Hypothyroidism, unspecified; M89.9 Disorder of bone, unspecified; R53.81 Other malaise; D63.8 Anemia in other chronic diseases classified elsewhere; R03.0 Elevated blood-pressure reading, without diagnosis of hypertension; I35.1 Nonrheumatic aortic (valve) insufficiency
CPT/HCPCS: 36415; 71045; 80048; 80053; 83735; 84460; 85025; 85027; 93306; 97110; 97162; 97165; 97530; 97535; A9270; J1650; J8540

== ENCOUNTER 2020-11-26 13:07 | Inpatient (IN) | payer MEDICARE, SELFPAY ==
[2020-11-26 13:21] VITALS: BMI 21.2
--- NOTE | 2020-11-26 13:27 | WPDREHABHP ---
H&P: HPI History of Present Illness Date/Time: 11/26/20 13:27 Chief Complaint: Physical Deconditioning r/t COVID, Lytic Bone Lesion Narrative: Beverly Linares is a 84 year old female who originally came to this facility for rehabilitation for COVID and deconditioning. However upon arrival at the facility for rehab she began having increased oxygen demand and was put in as an inpatient. Today patient is off COVID isolation and her oxygen demand has normalized. The patient is now admitted into swing bed for PT/OT for physical reconditioning and to work on ADLs so the patient can return home. Review of Systems Constitutional Constitutional: Reports no additional constitutional complaints and Reports weakness Cardiovascular Cardiovascular: Reports no additional cardiovascular complaints, Denies chest pain, Denies chest pain at rest and Denies chest pain with activity Respiratory Respiratory: Reports no additional respiratory complaints and Reports dyspnea on exertion Gastrointestinal Gastrointestinal: Reports no additional gastrointestinal complaints Musculoskeletal Musculoskeletal: Reports muscle weakness PMFSH Past Medical History Medical History Bilateral cataracts COVID-19 Hypercholesterolemia Hypothyroidism Lytic bone lesions on xray Surgical History Surgical History H/O bilateral cataract extraction H/O hemorrhoidectomy History of removal of pigmented skin lesion Previous back surgery Family History Family History Mother Family history of malignant neoplasm Carcinoma of colon Father No problems noted. Sibling Cancer Brother leukemia and another brother with another type of can Dementia 1 brother Social History Social History Social History: The patient has 3 sons. 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 The patient is a full code. She lives home alone she is . 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 Smoking packs per day: 1 Smoking cigarettes per day: 20.0 Smoking status: Former smoker Tobacco type: cigarettes Second hand tobacco smoke exposure: No Smoking end date: 12/02/1955 Alcohol intake: current Substance use: never Substance use type: does not use Gender identity (if verbalized by the patient): Female Spiritual care concerns: No Meds Home Medications and Allergies Home Medications Medication Instructions Recorded Confirmed Type acetaminophen 500 mg PO Q6H PRN 11/09/20 11/26/20 History levothyroxine 75 mcg PO DAILY 11/09/20 11/26/20 History simvastatin 10 mg PO HS 11/09/20 11/26/20 History Allergies Allergy/AdvReac Type Severity Reaction Status Date / Time No Known Allergies Allergy Unknown Verified 11/09/20 15:11 Exam Const General: cooperative, no acute distress, alert, awake and Physically active Nutritional Appearance: average body habitus Resp Effort & Inspection: normal respiratory effort Auscultation: clear to auscultation bilaterally Cardio Rate: regular rate Rhythm: regular rhythm Heart sounds: S1 normal heart sound present and S2 normal heart sound present GI GI Palp: Yes Soft to palpation and No Tenderness to palpation present (GI) Auscultation: normal bowel sounds Extrem General: no pedal edema Assessment and Plan Assessment and plan (1) Physical deconditioning: Code(s): R53.81 - Other malaise Status: Acute Assessment and Plan: 11/26/2020 Physical therapy and occupational therapy will be working patient to increase stamina and educate patient on performing ADLs so that patient could return to her previous living situation. (2) Anemia of chronic disease: Code(s): D63.8 - Anem
[2020-11-26 13:37] VITALS: O2SAT 94
[2020-11-26 15:30] VITALS: BP 138/68; PULSE 73; RESP 22; TEMP 36.5; O2SAT 94
[2020-11-26] MEDS: ACETAMINOPHEN 500 MG TABLET PO (16:53)
--- NOTE | 2020-11-26 19:37 | PM.EVENT ---
Event Note Event Note Event Note: I have examined the patient and reviewed the chart. I discussed the patient's care with Laura Colin APN and agree with his assessment and plan.
--- NOTE | 2020-11-26 19:37 | PM.IMHP ---
H&P: HPI History of Present Illness Date/Time: 11/26/20 19:37 Chief Complaint: Weakness, dyspnea Narrative: 84 year old woman With a history of hypothyroidism and dyslipidemia was recently diagnosed with COVID-19 and hypoxic respiratory failure is being admitted to his a swing bed for rehabilitation, strengthening and resumption of ADLs. Patient states that she has not been up much in the last few days and that getting up causes her to be much more short of breath, feel weak and according to the nurses her sats drop when she does so. Present she is on 3 L by nasal cannula during the day while she is awake and occasionally needs more oxygen to maintain her sats. She was treated with high-flow oxygen, Mayra severe and dexamethasone. Review of Systems Constitutional: Constitutional: Denies chills, Reports fatigue, Denies fever(s) and Reports lethargy Eyes: Eyes: Denies blurry vision, Denies change in vision and Denies loss of vision ENT: Denies dysphagia, Denies otalgia, Denies nasal congestion and Denies throat swelling Cardiovascular: Cardiovascular: Denies chest pain, Denies rapid heart rate and Denies pedal edema Respiratory: Respiratory: Reports cough, Denies hemoptysis, Denies pain with cough, Reports dyspnea and Reports dyspnea on exertion Gastrointestinal: Gastrointestinal: Denies abdominal pain, Denies diarrhea, Denies nausea and Denies vomiting Genitourinary: Genitourinary: Denies nocturia and Denies dysuria Musculoskeletal: Musculoskeletal: Reports back pain, Denies arthralgias and Denies joint swelling Integumentary/Breasts: Skin/Breast: Denies erythema, Denies rash and Denies wounds Neurologic: Denies vertigo, Denies syncope, Denies numbness, Denies radicular pain and Reports weakness Psychiatric: Psychiatric: Denies anxiety and Denies depression Hematologic/Lymphatic: Hematologic/Lymphatic: Denies easy bleeding and Denies easy bruising Allergic/Immunologic: Allergic/Immunologic: Denies lip swelling and Denies throat swelling PMFSH Past Medical History Medical History Bilateral cataracts COVID-19 Hypercholesterolemia Hypothyroidism Lytic bone lesions on xray Surgical History Surgical History H/O bilateral cataract extraction H/O hemorrhoidectomy History of removal of pigmented skin lesion Previous back surgery Family History Family History Mother Family history of malignant neoplasm Carcinoma of colon Father No problems noted. Sibling Cancer Brother leukemia and another brother with another type of can Dementia 1 brother Social History Social History Social History: The patient has 3 sons. 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 The patient is a full code. She lives home alone she is . 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 Smoking packs per day: 1 Smoking cigarettes per day: 20.0 Smoking status: Former smoker Tobacco type: cigarettes Second hand tobacco smoke exposure: No Smoking end date: 12/02/1955 Alcohol intake: current Substance use: never Substance use type: does not use Gender identity (if verbalized by the patient): Female Spiritual care concerns: No Meds Home Medications and Allergies Home Medications Medication Instructions Recorded Confirmed Type acetaminophen 500 mg PO Q6H PRN 11/09/20 11/26/20 History levothyroxine 75 mcg PO DAILY 11/09/20 11/26/20 History simvastatin 10 mg PO HS 11/09/20 11/26/20 History Allergies Allergy/AdvReac Type Severity Reaction Status Date / Time No Known Allergies Allergy Unknown Verified 11/09/20 15:11 Vital Signs Vital Signs - 24 hr 11/26/20 13:37 11/26/20 15:30
[2020-11-26] MEDS: traZODone HCL 25 MG TABLET PO (20:31)
[2020-11-26] MEDS: SIMVASTATIN 10 MG TABLET PO (20:31)
[2020-11-27 00:30] VITALS: BP 137/57; PULSE 70; RESP 18; TEMP 35.9; O2SAT 96
--- NOTE | 2020-11-27 00:30 | PC.NURSE ---
Pt. awake upon entering room for assessment. Pt. alert and has no c/o at this time. Pt. voices concerns about leaving to go home and wanting to know if she could go to [facility] home p leaving here. Advised pt. will address c charge nurse and will have to have conference for that possibility.
--- NOTE | 2020-11-27 03:40 | PC.NURSE ---
Pt. up to BR c assist using a walker to help steady her gait. Pt. amanda. fairly well but c/o being very tired and weak feeling when back to bed. O2 via NC reapplied and pt. resting. Pt. encouraged to use walker and get out of bed to use BR to improve her gait and strength.
[2020-11-27] MEDS: LEVOTHYROXINE SODIUM 75 MCG TABLET PO (06:17)
[2020-11-27 08:00] VITALS: BP 111/65; PULSE 77; RESP 20; TEMP 36.2; O2SAT 96
--- NOTE | 2020-11-27 08:38 | PC.NURSE ---
Patient refused lab draw
[2020-11-27] MEDS: LIDOCAINE 5% PATCH 1 PATCH TRANSDERM (09:25)
[2020-11-27] MEDS: ACETAMINOPHEN 500 MG TABLET PO ×2 (09:26→20:34)
[2020-11-27] MEDS: amLODIPine BESYLATE 5 MG TABLET PO (09:27)
[2020-11-27 15:28] VITALS: BP 120/67; PULSE 83; RESP 16; TEMP 36.3; O2SAT 93
[2020-11-27 19:40] VITALS: O2SAT 94
[2020-11-27] MEDS: SIMVASTATIN 10 MG TABLET PO (20:34)
[2020-11-27] MEDS: traZODone HCL 25 MG TABLET PO (20:34)
[2020-11-27 23:20] VITALS: BP 112/62; PULSE 75; RESP 18; TEMP 36.7; O2SAT 97
[2020-11-28] MEDS: LEVOTHYROXINE SODIUM 75 MCG TABLET PO (05:36)
[2020-11-28 07:04] LABS: Hematocrit 32.8 % (35.0-42.0); Hemoglobin 10.5 g/dL (11.7-13.8); Mean Corpuscular Volume 90.6 fL (78.0-102.0); Mean Platelet Volume 10.5 fl (9.2-11.8); Platelet Count Result 300 K/mm3 (150-420); Red Blood Count 3.62 M/mm3 (4.20-5.40); Red Cell Distribution Width 14.2 % (11.6-14.4); White Blood Count 9.1 K/mm3 (4.8-10.8)
[2020-11-28 07:20] LABS: Anion Gap 4 mmol/L (8-16); Blood Urea Nitrogen 21 mg/dL (7-18); Calcium 8.9 mg/dL (8.5-10.1); Carbon Dioxide 29 mmol/L (21-32); Chloride 99 mmol/L (98-108); Estimated CRCL calculation 35 ml/min; Estimated Glomerular Filt Rate 57; Glucose 102 mg/dL (70-99); Osmolality Calculated 277 mOsm/kg (285-295); Potassium 3.8 mmol/L (3.5-5.1); Sodium 132 mmol/L (136-145)
[2020-11-28 08:00] VITALS: BP 161/73; PULSE 75; RESP 20; TEMP 36.6
[2020-11-28] MEDS: LIDOCAINE 5% PATCH 1 PATCH TRANSDERM (09:47)
[2020-11-28] MEDS: amLODIPine BESYLATE 5 MG TABLET PO (09:47)
[2020-11-28] MEDS: oxyCODONE HCL (*CRX) 5 MG TAB IR 2.5 MG PO ×2 (09:48→14:40)
[2020-11-28 15:00] VITALS: PULSE 82; RESP 16; O2SAT 95
[2020-11-28 15:17] VITALS: BP 126/73; PULSE 82; RESP 16; TEMP 37.2; O2SAT 95
--- NOTE | 2020-11-28 15:30 | PC.NURSE ---
PT RESTING IN BED. STATES PAIN IS 8/10 TO BACK AND RIGHT NECK, PT HAD ANALGESIA AT 1440. THERAPY WORKING WITH PATIENT NOW.
[2020-11-28 15:40] VITALS: TEMP 36.6
[2020-11-28 17:05] VITALS: PULSE 114; RESP 24; O2SAT 75
[2020-11-28 17:08] VITALS: PULSE 115; PULSE 89; RESP 18; RESP 24; O2SAT 75; O2SAT 94
[2020-11-28] MEDS: SIMVASTATIN 10 MG TABLET PO (21:10)
[2020-11-28] MEDS: ACETAMINOPHEN 500 MG TABLET PO (21:10)
[2020-11-28] MEDS: traZODone HCL 25 MG TABLET PO (21:10)
[2020-11-29] VITALS: BP 122/67; PULSE 75; RESP 16; TEMP 36.4; O2SAT 95
[2020-11-29] MEDS: LEVOTHYROXINE SODIUM 75 MCG TABLET PO (05:51)
[2020-11-29 07:23] VITALS: BP 106/54; PULSE 77; RESP 18; TEMP 36.8; O2SAT 96
[2020-11-29] MEDS: amLODIPine BESYLATE 5 MG TABLET PO (08:26)
[2020-11-29] MEDS: ACETAMINOPHEN 500 MG TABLET PO ×2 (08:26→20:24)
[2020-11-29] MEDS: LIDOCAINE 5% PATCH 1 PATCH TRANSDERM (08:26)
--- NOTE | 2020-11-29 09:29 | PCPTNOTE ---
OT services will not be provided until 12/02/20 due to our current OT staff having covid 19. PT will focus on additional ADL training that would normally be addressed by OT staffing. Larry Jones, MPT
[2020-11-29 16:00] VITALS: BP 119/67; PULSE 66; RESP 16; TEMP 36.5; O2SAT 98
[2020-11-29] MEDS: SIMVASTATIN 10 MG TABLET PO (20:24)
[2020-11-29] MEDS: traZODone HCL 25 MG TABLET PO (20:24)
[2020-11-29 23:41] VITALS: BP 111/59; PULSE 80; RESP 16; TEMP 36.1; O2SAT 95
[2020-11-30 05:42] LABS: Hematocrit 28.9 % (35.0-42.0); Hemoglobin 9.3 g/dL (11.7-13.8); Mean Corpuscular HGB Conc 32.2 g/dL (32.0-36.0); Mean Corpuscular Hemoglobin 29.1 pg (27.0-31.0); Mean Corpuscular Volume 90.3 fL (78.0-102.0); Mean Platelet Volume 10.1 fl (9.2-11.8); Platelet Count Result 270 K/mm3 (150-420); Red Cell Distribution Width 14.3 % (11.6-14.4); White Blood Count 7.9 K/mm3 (4.8-10.8)
[2020-11-30 05:53] LABS: Anion Gap 6 mmol/L (8-16); Blood Urea Nitrogen 21 mg/dL (7-18); Calcium 8.6 mg/dL (8.5-10.1); Carbon Dioxide 28 mmol/L (21-32); Chloride 100 mmol/L (98-108); Estimated CRCL calculation 35 ml/min; Estimated Glomerular Filt Rate 58; Glucose 91 mg/dL (70-99); Osmolality Calculated 281 mOsm/kg (285-295); Potassium 4.2 mmol/L (3.5-5.1); Sodium 134 mmol/L (136-145)
[2020-11-30] MEDS: LEVOTHYROXINE SODIUM 75 MCG TABLET PO (06:05)
[2020-11-30 07:42] VITALS: BP 109/63; PULSE 73; RESP 20; TEMP 36.6
[2020-11-30] MEDS: LIDOCAINE 5% PATCH 1 PATCH TRANSDERM (09:09)
[2020-11-30] MEDS: ACETAMINOPHEN 500 MG TABLET PO ×2 (09:10→17:18)
[2020-11-30] MEDS: amLODIPine BESYLATE 5 MG TABLET PO (09:10)
--- NOTE | 2020-11-30 11:45 | PM.OP ---
Procedure Note - Brief Procedure Note - Brief Date of procedure: 11/30/20 Pre-op diagnosis: Respiratory Symptoms Virtual Surgeon: Seen and evaluated with the team. She appears to be doing reasonably well today and is up in the chair now. Lungs clear, ht rrr, abdomen soft nt, ext trace pedal edema. She is set up to see hem/onc doctor tomorrow about her multiple myeloma, and to get set up for further treatment with that. Her pain is controlled for now and labs are acceptable.
[2020-11-30] MEDS: oxyCODONE HCL (*CRX) 5 MG TAB IR 2.5 MG PO ×2 (13:00→20:23)
--- NOTE | 2020-11-30 13:53 | PC.NURSE ---
Patient taken to private vehicle, son. Son is taking patient to Oncologist at [place]. Will return
--- NOTE | 2020-11-30 15:20 | PC.NURSE ---
PT CONTINUES ON ARNALDO TO ONCOLOGIST APPT AT [facility].
[2020-11-30 17:00] VITALS: BP 120/77; PULSE 98; RESP 24; TEMP 37.1; O2SAT 87
--- NOTE | 2020-11-30 17:00 | PC.NURSE ---
PT RETURNED WITH SON FROM [place] TO DR. MARKS. COPY OF PAPERWORK RECEIVED. NO OXYGEN TANK OR CANNULA NOTED. PT TAKEN UP TO ROOM, PT SPO2 NOTED AT 87% AND C/O SOB, RR 24 AND SHALLOW. O2 APPLIED AT 2LPM AND AFTER 4MIN SPO2 UP TO 92%, ENCOURAGED PURSED LIP BREATHING, PT REQUIRES MODERATE INSTRUCTION ON THIS TECHNIQUE, REDUCED O2 BACK TO 1LPM. PT COUGHING AND BRINGING UP FROTHY SPUTUM. CHARGE NURSE AWARE OF RETURN WITHOUT OXYGEN. SON REPORTS ONCOLOGY TO [facility] ON 12/06/20 AND WILL RECOMMEND CHEMOTHERAPY AND RADIATION PROCESS AT THAT TIME.
[2020-11-30 17:05] VITALS: O2SAT 92
[2020-11-30 17:10] VITALS: RESP 20; O2SAT 93
[2020-11-30 20:00] VITALS: PULSE 84; RESP 20; O2SAT 93
--- NOTE | 2020-11-30 20:00 | PC.NURSE ---
Patient complaining of pain rated @ 4 on 0-10 scale. Nurse offered pain medicine and patient said to wait and bring the pain medicine with her bedtime pills.
[2020-11-30] MEDS: SIMVASTATIN 10 MG TABLET PO (20:23)
[2020-11-30] MEDS: traZODone HCL 25 MG TABLET PO (20:26)
[2020-11-30 23:26] VITALS: BP 116/69; PULSE 72; RESP 16; TEMP 36.1; O2SAT 96
[2020-12-01] MEDS: LEVOTHYROXINE SODIUM 75 MCG TABLET PO (05:48)
[2020-12-01 07:31] VITALS: BP 114/66; PULSE 78; RESP 18; TEMP 36.6; O2SAT 96
[2020-12-01] MEDS: LIDOCAINE 5% PATCH 1 PATCH TRANSDERM (09:03)
[2020-12-01] MEDS: ACETAMINOPHEN 500 MG TABLET PO (09:04)
[2020-12-01] MEDS: amLODIPine BESYLATE 5 MG TABLET PO (09:04)
[2020-12-01 15:59] VITALS: BP 117/58; PULSE 76; RESP 18; TEMP 36.7; O2SAT 98
[2020-12-01] MEDS: oxyCODONE HCL (*CRX) 5 MG TAB IR 2.5 MG PO (18:26)
[2020-12-01 19:35] VITALS: PULSE 100; RESP 20; O2SAT 92
--- NOTE | 2020-12-01 20:00 | PC.NURSE ---
Patient to bed with walker and CGA. O2 off @ this time and SpO2 is 91%. O2 left off. Patient denies shortness of breath. Color pink. No distress noted. Call light in reach.
[2020-12-01] MEDS: traZODone HCL 25 MG TABLET PO (20:37)
[2020-12-01] MEDS: SIMVASTATIN 10 MG TABLET PO (20:37)
[2020-12-01 23:39] VITALS: BP 122/64; PULSE 90; RESP 18; TEMP 36.6; O2SAT 91
--- NOTE | 2020-12-01 23:45 | PC.NURSE ---
Patient sleeping when nurse entered room. Spo2 is 88% on room air. Encouraged purse lipped breathing, which patient did, but SpO2 stayed @ 88%. Patient denies shortness of breath. Color pink. O2 reapplied @ 1 lpm/nc. SpO2 came up to 91% quickly. O2 left on. No distress noted. Call light in reach.
[2020-12-02] MEDS: LEVOTHYROXINE SODIUM 75 MCG TABLET PO (06:28)
[2020-12-02 08:00] VITALS: BP 119/82; PULSE 86; RESP 18; TEMP 37.1; O2SAT 96
[2020-12-02] MEDS: amLODIPine BESYLATE 5 MG TABLET PO (08:44)
[2020-12-02] MEDS: LIDOCAINE 5% PATCH 1 PATCH TRANSDERM (08:44)
[2020-12-02] MEDS: ACETAMINOPHEN 500 MG TABLET PO ×2 (08:48→18:53)
[2020-12-02] MEDS: oxyCODONE HCL (*CRX) 5 MG TAB IR 2.5 MG PO ×2 (08:49→18:53)
[2020-12-02 16:00] VITALS: BP 117/70; PULSE 81; RESP 18; TEMP 36.9; O2SAT 96
[2020-12-02] MEDS: SIMVASTATIN 10 MG TABLET PO (20:25)
[2020-12-02] MEDS: traZODone HCL 25 MG TABLET PO (20:25)
[2020-12-02 23:43] VITALS: BP 118/65; PULSE 81; RESP 16; TEMP 36.4; O2SAT 95
[2020-12-03] MEDS: LEVOTHYROXINE SODIUM 75 MCG TABLET PO (06:04)
[2020-12-03 07:35] VITALS: BP 121/61; PULSE 76; RESP 18; TEMP 36.2; O2SAT 100
[2020-12-03] MEDS: oxyCODONE HCL (*CRX) 5 MG TAB IR 2.5 MG PO (09:13)
[2020-12-03] MEDS: amLODIPine BESYLATE 5 MG TABLET PO (09:14)
[2020-12-03] MEDS: LIDOCAINE 5% PATCH 1 PATCH TRANSDERM (09:15)
[2020-12-03 16:45] VITALS: BP 106/55; PULSE 88; RESP 18; TEMP 37.3; O2SAT 97
[2020-12-03] MEDS: SIMVASTATIN 10 MG TABLET PO (20:55)
[2020-12-03] MEDS: traZODone HCL 25 MG TABLET PO (20:55)
[2020-12-03 23:35] VITALS: BP 120/65; PULSE 75; RESP 18; TEMP 36.3; O2SAT 97
--- NOTE | 2020-12-04 02:19 | PC.NURSE ---
pt sleeping, no evidence of distress noted at this time
[2020-12-04] MEDS: LEVOTHYROXINE SODIUM 75 MCG TABLET PO (05:46)
[2020-12-04] MEDS: oxyCODONE HCL (*CRX) 5 MG TAB IR 2.5 MG PO ×2 (05:46→16:49)
[2020-12-04 08:01] VITALS: BP 117/70; PULSE 77; RESP 16; TEMP 36.3; O2SAT 96
[2020-12-04] MEDS: amLODIPine BESYLATE 5 MG TABLET PO (08:29)
[2020-12-04] MEDS: LIDOCAINE 5% PATCH 1 PATCH TRANSDERM (08:29)
[2020-12-04] MEDS: ACETAMINOPHEN 500 MG TABLET PO ×2 (08:44→20:38)
[2020-12-04 15:35] VITALS: BP 123/65; PULSE 80; RESP 18; TEMP 36.2; O2SAT 98
[2020-12-04] MEDS: SIMVASTATIN 10 MG TABLET PO (20:38)
[2020-12-04] MEDS: traZODone HCL 25 MG TABLET PO (20:38)
[2020-12-04 23:45] VITALS: BP 118/60; PULSE 84; RESP 20; TEMP 36; O2SAT 92
[2020-12-05] MEDS: LEVOTHYROXINE SODIUM 75 MCG TABLET PO (05:57)
[2020-12-05 07:40] VITALS: BP 131/79; PULSE 84; RESP 20; TEMP 36.5; O2SAT 97
[2020-12-05] MEDS: LIDOCAINE 5% PATCH 1 PATCH TRANSDERM (08:50)
[2020-12-05] MEDS: amLODIPine BESYLATE 5 MG TABLET PO (08:50)
[2020-12-05] MEDS: oxyCODONE HCL (*CRX) 5 MG TAB IR 2.5 MG PO (09:46)
[2020-12-05] MEDS: ACETAMINOPHEN 500 MG TABLET PO (09:46)
--- NOTE | 2020-12-05 12:35 | WPDPN ---
Progress Note: A&P Assessment and Plan (1) Physical deconditioning: Code(s): R53.81 - Other malaise Status: Acute Assessment and Plan: ? Exhibit tolerance during physical activity as evidenced by a normal fluctuation of vital signs during physical activity. ? Patient will be ability to perform required activities of daily living. ? Provide appropriate nutrition for healing and strength. ? Use appropriate to prevent falls. ? Continue physical therapy/occupational therapy. (2) Myeloma: Qualifiers: Multiple myeloma remission status: unspecified Qualified Code(s): C90.00 - Multiple myeloma not having achieved remission Code(s): C90.00 - Multiple myeloma not having achieved remission Status: Acute Assessment and Plan: Patient follows up with Dr. Ontiveros oncologist cab starter at [facility] Continue pain medication treatment Patient PET scan has been discontinued we will schedule after discharge from rehab (3) Hypertension: Qualifiers: Hypertension type: essential hypertension Qualified Code(s): I10 - Essential (primary) hypertension Code(s): I10 - Essential (primary) hypertension Status: Acute Assessment and Plan: Patient's blood pressure has been elevated since admission has improved Continue Norvasc 5 mg Continue vital signs as ordered Will adjust medication as needed (4) Anemia of chronic disease: Code(s): D63.8 - Anemia in other chronic diseases classified elsewhere Status: Acute Assessment and Plan: Continue iron supplements Periodically monitor H&H (5) Lytic bone lesions on xray: Code(s): M89.9 - Disorder of bone, unspecified Status: Acute Assessment and Plan: Referred to myeloma (6) Hypothyroidism: Qualifiers: Hypothyroidism type: unspecified Qualified Code(s): E03.9 - Hypothyroidism, unspecified Code(s): E03.9 - Hypothyroidism, unspecified Status: Chronic Assessment and Plan: Continue Synthroid 75 mg daily (7) Hypercholesterolemia: Code(s): E78.00 - Pure hypercholesterolemia, unspecified Status: Chronic (8) COVID-19: Code(s): U07.1 - COVID-19 Status: Acute Assessment and Plan: Tested + 11/07/2020 Completed remdesivir and dexamethasone Review of Systems Review of Systems: All systems reviewed & are unremarkable except as noted in HPI and below (10 point system review) Exam Narrative: Exam Narrative: GENERAL: This is a well-nourished, well-developed patient, in no apparent distress. HEAD: normocephalic, atraumatic. EYES: PERRL. Sclera clear/white. Vision is grossly intact. EARS: External ears normal, auditory canals clear and without drainage, TMs normal without perforation. Hearing grossly intact. NOSE: External nose normal with no obvious nasal discharge, nares without redness, no rhinorrhea. THROAT: Mucous membranes moist, posterior pharynx clear. NECK: Neck supple, non-tender without lymphadenopathy, masses or thyromegaly. CARDIOVASCULAR: Regular rate and rhythm without murmurs, gallops, or rubs. RESPIRATORY: Diminished breath sounds GASTROINTESTINAL: Abdomen soft, non-tender, nondistended. Bowel sounds are active. No hepato-splenomegaly, or palpable masses. No guarding. SKIN: warm, intact with no suspicious lesions or rash, good texture and turgor. NEURO: awake, alert, and oriented to person, place and time. There were no obvious focal neurologic abnormalities. Steady gait EXTREMITIES: Normal range of motion. No edema. No calf tenderness. Negative Homans sign bilaterally. BACK: Nontender without deformity or crepitance. No flank tenderness. Objective Data Vital Signs Vital Signs: Vital Signs - 24 hr 12/04/20 15:35 12/04/20 23:45 12/05/20 07:40 Temperature 97.1 F L 96.8 F L 97.7 F Pulse Rate 80 84 84 Respiratory Rate 18 20 20 Blood Pressure 123/65 118/60 131/79 Pulse Oximetry 98 92 97 In
--- NOTE | 2020-12-05 13:39 | PM.DS ---
DS: Admitting Diagnosis Admitting Diagnosis Admitting Diagnosis: Generalized weakness physical deconditioning DS: Discharge Diagnosis Discharge Diagnosis (1) Physical deconditioning: Code(s): R53.81 - Other malaise Status: Acute Assessment and Plan: ? Continue physical therapy occupational therapy at [facility] Exhibit tolerance during physical activity as evidenced by a normal fluctuation of vital signs during physical activity. ? Patient will be ability to perform required activities of daily living. ? Provide appropriate nutrition for healing and strength. ? Use appropriate to prevent falls. ? Continue physical therapy/occupational therapy. (2) Myeloma: Qualifiers: Multiple myeloma remission status: unspecified Qualified Code(s): C90.00 - Multiple myeloma not having achieved remission Code(s): C90.00 - Multiple myeloma not having achieved remission Status: Acute Assessment and Plan: Patient follows up with Dr. Ontiveros oncologist supervisor hot strip mill at [facility] Continue pain medication treatment Patient PET scan has been discontinued we will schedule after discharge from rehab (3) Hypertension: Qualifiers: Hypertension type: essential hypertension Qualified Code(s): I10 - Essential (primary) hypertension Code(s): I10 - Essential (primary) hypertension Status: Acute Assessment and Plan: Patient's blood pressure has been elevated since admission has improved Continue Norvasc 5 mg (4) Anemia of chronic disease: Code(s): D63.8 - Anemia in other chronic diseases classified elsewhere Status: Acute Assessment and Plan: Continue iron supplements (5) Lytic bone lesions on xray: Code(s): M89.9 - Disorder of bone, unspecified Status: Acute Assessment and Plan: Referred to myeloma (6) Hypothyroidism: Qualifiers: Hypothyroidism type: unspecified Qualified Code(s): E03.9 - Hypothyroidism, unspecified Code(s): E03.9 - Hypothyroidism, unspecified Status: Chronic Assessment and Plan: Continue Synthroid 75 mg daily (7) Hypercholesterolemia: Code(s): E78.00 - Pure hypercholesterolemia, unspecified Status: Chronic (8) COVID-19: Code(s): U07.1 - COVID-19 Status: Acute Assessment and Plan: Tested + 11/07/2020 Completed and dexamethasone DS: Summary Hospital Course Reason for hospitalization: Generalized weakness Hospital Course: Patient was admitted to this hospital as a swing bed on 11/10/2020 from [facility] post Covid positive. Patient to completed dose of dexamethasone. patient tested positive for Covid on 11/07/2020. patient transition to swing bed here at [facility]. On 11/13/2020 shortly after arriving to our facility patient requires higher supplementary oxygen demand and had deteriorated at that point. Patient received several weeks of high flow nasal cannula. On 11/26/2020 patient condition improved and she transition back into a swing bed on nasal cannula. While patient was at [facility] she was consulted by hematology oncology for possible myeloma. Patient has had an appointment with her supervisor hot strip mill oncologist since she has been a patient in our swing bed. Patient will transition to SNF today she will have to make a follow-up appointment with her oncologist for her treatment of myeloma. She will also have to reschedule her PET scan after she is discharged from SNF. Patient is still requiring 1 L nasal cannula if she was discharged to the SNF with oxygen and PT OT. Patient does continue to complain about lower back pain which is probably related to her myeloma. The patient denies , CP, palpitation, extremity numbness, lightheadedness, dizziness, constipation, diarrhea, chills, or fever. Time Spent with Patient Time attestation: Total time spent providing and/or coordinating discharge services:60 Exam Narrative: Exam Narrat
== END 2020-12-05 14:25 | DRG 178 ==
PROVIDERS: Nurse Practitioner Family; Admitting Provider Emergency Medicine; Visit Provider Emergency Medicine
DX: U07.1 COVID-19 (principal); C90.00 Multiple myeloma not having achieved remission; R53.81 Other malaise; D63.8 Anemia in other chronic diseases classified elsewhere; E78.00 Pure hypercholesterolemia, unspecified; E03.9 Hypothyroidism, unspecified; M89.9 Disorder of bone, unspecified; Z96.1 Presence of intraocular lens; Z98.42 Cataract extraction status, left eye; Z98.41 Cataract extraction status, right eye
CPT/HCPCS: 36415; 80048; 85027; 97110; 97116; 97161; 97165; 97530; 97535; A9270

== ENCOUNTER 2020-12-20 07:07 | Outpatient (CLI) | payer MEDICARE, SELFPAY ==
[2020-12-19 17:16] VITALS: BP 137/74; PULSE 70; RESP 15; TEMP 36.6; O2SAT 100
--- NOTE | ~2020-12-20 | PE_ITS ---
EXAMINATION: PET skull to mid thigh DATE: 12/20/2020 13:20 INDICATION: Multiple myeloma TECHNIQUE: Blood glucose level was 90 mg/dL. 10.921 mCi of 18-fluorodeoxyglucose (18-FDG) was adminis tered i.v. Low dose computed tomography (CT) images were acquired from the base of the brain to the p roximal thighs for attenuation correction and anatomic localization. Positron emission tomography (PE T) images were acquired in the same distribution beginning 72 minutes after injection. Images includi ng fused PET/CT images were reconstructed in axial, coronal, and sagittal planes. Automated exposure control technique was employed. The dose-length product was 295.81mGy-cm. COMPARISON: CT abdomen and pelvis dated 11/04/2020 FINDINGS: Head/neck: There is symmetric increased activity in the nares, oral cavity, submandibular glands, laryngeal musc les and ocular muscles without CT correlate, likely physiologic. Left mastoid effusion. No pathologic ally enlarged cervical lymphadenopathy or suspicious foci of increased FDG uptake in the visualized h ead or neck. Chest: Bilateral groundglass opacities and more dense subpleural bands throughout both lungs which could be related to chronic interstitial lung disease or more likely sequela of COVID pneumonia in this patien t with COVID positive diagnosis one month prior subsequently requiring supplemental oxygen. No pleura l effusion. Mild cardiomegaly. Mild atherosclerotic coronary artery calcific lesion. No pericardial e ffusion. Thoracic aorta is normal in caliber. Calcified right hilar lymph nodes consistent with old g ranulomatous disease. No pathologically enlarged thoracic lymphadenopathy. Abdomen/pelvis/proximal thighs: Physiologic renal accumulation and excretion of FDG activity in the kidneys, bladder and along portio ns of ureters. Normal degree and heterogenous pattern of increased uptake throughout the liver withou t radiologic correlate or dominant FDG avid lesion. Status post cholecystectomy with surgical clips a t the gallbladder fossa. The pancreas, spleen and bilateral adrenal glands are normal. Mild to modera te uptake scattered throughout the bowels most prominent at the cecum, without radiologic correlate, also likely physiologic. No other abnormal foci of increased soft tissue FDG uptake or pathologically enlarged lymphadenopathy in the abdomen, pelvis or proximal thighs. Musculoskeletal: There are multiple small lucent calvarial lesions suspicious for multiple myeloma. Unable to assess f or FDG uptake due to the large amount of immediately adjacent brain uptake. Are multiple additional l ytic lesions in the spine, the largest in with most intense FDG uptake at L3 with maximal SUV of 8.2. Additional lytic lesions with less intense FDG uptake are seen at T3, T4, T6, T12, L1 and L4. There are numerous additional tiny areas of increased lucency or endosteal scalloping and a heterogeneous p attern of mildly increased FDG uptake throughout the remainder of the bone suggesting additional wide spread tiny lesions as be expected for multiple myeloma. There is increased uptake at the left instrumental music teacher ior iliac spine with equivocal for additional disease versus reactive change related to the immediate ly prior bone marrow biopsy. 3 cm likely Bartholin cyst without associated FDG uptake at the left andre e of the introitus. IMPRESSION: 1. Numerous lytic bone lesions as detailed above, a few with moderately increased FDG uptake and many with mildly increased uptake consistent with given history of multiple myeloma. Correlate with resul ts from the immediately prior bone marrow biopsy. 2. No other nonosseous lesions suspicious for primary malignancy or metastatic disease. Reviewed, dictated and finalized at location A. HANTH HOYT
--- NOTE | ~2020-12-20 | BM_ITS ---
EXAMINATION: CCL bone marrow asp w bx diag ORDER COMPLETED DATE: 12/20/2020 09:18 INDICATION: Lytic bone lesions presumptive for multiple myeloma. TECHNIQUE: A time-out was performed to verify the patient's name, date of , and procedure to b e performed. The procedure including the risks, benefits, and alternatives was discussed with the pat ient. Risks discussed included bleeding and infection. The patient understood the risks and agreed to proceed. The skin overlying the left posterior iliac spine was prepped and draped in usual sterile f ashion. Anesthetic was administered with 1% lidocaine subcutaneously. Systemic analgesia was provided with 50 mcg fentanyl IV. An 11 gauge needle was inserted into the ilium with fluoroscopic guidance. Bone marrow was aspirated. An 8 gauge needle was then inserted into the ilium with fluoroscopic kaylynn nce. A core bone marrow biopsy was obtained. There were no immediate complications. Fluoroscopy expos ure time was 0.1 minutes. The total number of images was 9. FINDINGS: Real-time fluoroscopy demonstrates a marker overlying the left posterior iliac spine. IMPRESSION: 1. Successful fluoro-guided bone marrow aspiration. 2. Successful fluoro-guided bone marrow core biopsy. Reviewed, dictated and finalized at location A. T PREPPER
[2020-12-20 07:45] VITALS: BP 144/86; PULSE 81; RESP 15; TEMP 36.2; O2SAT 100; BMI 20.2
[2020-12-20 07:59] LABS: Basophils Absolute Auto 0.1 K/mm3 (0.0-0.1); Basophils Percent Auto 0.6 % (0.2-1.2); Eosinophils Absolute Auto 0.1 K/mm3 (0-0.3); Eosinophils Percent Auto 0.8 % (0-4.4); Hematocrit 31.7 % (37.0-47.0); Hemoglobin 10.4 g/dL (12.0-15.0); Immature Granulocyte Absolute 0.11 K/mm3 (0.00-0.031); Immature Granulocyte Percent A 1.2 % (0-0.5); Lymphocytes Absolute Auto 2.31 K/mm3 (0.9-3.2); Lymphocytes Percent Auto 26.2 % (18.3-44.2); Mean Corpuscular HGB Conc 32.8 g/dl (32-36); Mean Corpuscular Hemoglobin 29.2 pg (26-34); Mean Platelet Volume 9.1 fl (7.4-10.4); Monocytes Absolute Auto 1.3 K/mm3 (0.1-0.6); Monocytes Percent Auto 14.2 % (2.6-8.5); Platelet Count Result 512 k/mm3 (150-375); Red Blood Count 3.56 M/mm3 (4.2-5.4); Red Cell Distribution Width 14.6 % (11.5-14.5); White Blood Count 8.8 K/mm3 (4.5-10.0)
[2020-12-20 08:11] LABS: Prothrombin Time 13.4 Seconds (11.1-14.7)
[2020-12-20 09:15] VITALS: BP 137/74; PULSE 71; RESP 15; TEMP 36.2; O2SAT 100
[2020-12-20 09:33] VITALS: BP 137/63; PULSE 71; RESP 15; O2SAT 100
[2020-12-20 09:45] VITALS: BP 130/63; PULSE 64; RESP 15; O2SAT 100
[2020-12-20 10:00] VITALS: BP 127/66; PULSE 75; RESP 15; O2SAT 100
--- NOTE | 2020-12-20 10:24 | SUR.PHASEII ---
1024 Pt transported via wheelchair to nuclear medicine for study later today, IV left in for procedure per Dr. Rveeles. D/C instructions reviewed with her son Asad and with the patient, questions answers both verbalized understanding.
[2020-12-20 10:55] LABS: Glucose Point of Care 90 (65-105)
== END 2020-12-20 07:08 | disposition home or self-care (01) ==
PROVIDERS: Radiology Diagnostic Radiology; PCP Internal Medicine; Visit Provider Internal Medicine Hematology & Oncology
DX: C90.00 Multiple myeloma not having achieved remission (principal)
CPT/HCPCS: 36415; 38222; 77280; 78815; 85025; 85610; 88184; 88185; 88305; 88311; 88313; 88360; A9552; J2250; J3010; J7040

== ENCOUNTER 2021-01-11 14:01 | Emergency (ER) | payer MEDICARE, SELFPAY ==
[2021-01-11] VITALS (9 sets, daily range): BP systolic 119–134; BP diastolic 56–84; PULSE 87–98; RESP 16–20; TEMP 37.6–37.7; O2SAT 95–100
--- NOTE | ~2021-01-11 | XR_ITS ---
EXAMINATION: XR chest 1V portable INDICATION: Shortness of breath TECHNIQUE: Portable AP chest at 1523 hours COMPARISON: 11/16/2020 FINDINGS: There are diffuse opacities of the lungs which demonstrate slight improvement since the liya or examination. No pleural effusion or pneumothorax is identified. The cardiomediastinal silhouette i s normal. Cholecystectomy clips are noted in the right upper quadrant. IMPRESSION: 1. Patchy opacities of the lungs which could reflect sequela of prior COVID 19 pneumonia versus new p neumonia. Reviewed, dictated and finalized at location A. RINARY PHYSIOLOGIST IMPRESSION: 1. Patchy opacities of the lungs which could reflect sequela of prior COVID 19 pneumonia versus new pneumonia.
--- NOTE | 2021-01-11 14:24 | ECG_ITS ---
Measurements Intervals [place] Rate: 90 P: 76 PA: 133 QRS: -31 QRSD: 146 T: 5 QT: 393 QTc: 482 Interpretive Statements SINUS RHYTHM ATRIAL AND VENTRICULAR PREMATURE COMPLEXES AND NON-CONDUCTED PAC LEFT AXIS DEVIATION RIGHT BUNDLE BRANCH BLOCK BASELINE ARTIFACT- II, III, AVR, AVL, AVF, V2-V3 ABNORMAL ECG Electronically Signed On 01-11-2021 14:54:38 JOURNEYMAN POWERHOUSE OPERATOR by Hiram Fernandez D.O.
[2021-01-11 15:07] LABS: Basophils Absolute Auto 0.02 K/mm3 (0.00-0.10); Basophils Percent Auto 0.2 % (0.0-1.0); Eosinophils Absolute Auto 0.08 K/mm3 (0.02-0.50); Eosinophils Percent Auto 0.8 % (1.0-6.0); Hematocrit 23.6 % (35.0-42.0); Hemoglobin 7.8 g/dL (11.7-13.8); Immature Granulocyte Absolute 0.08 K/mm3 (0.00-0.00); Immature Granulocyte Percent A 0.8 % (0.0-0.0); Lymphocytes Absolute Auto 1.05 K/mm3 (1.10-4.50); Lymphocytes Percent Auto 10.7 % (18.0-42.0); Mean Corpuscular HGB Conc 33.1 g/dL (32.0-36.0); Mean Corpuscular Hemoglobin 28.7 pg (27.0-31.0); Mean Corpuscular Volume 86.8 fL (78.0-102.0); Mean Platelet Volume 10.7 fl (9.2-11.8); Monocytes Absolute Auto 0.81 K/mm3 (0.10-0.90); Monocytes Percent Auto 8.3 % (2.0-11.0); Neutrophils Absolute Auto 7.8 K/mm3 (1.7-7.2); Neutrophils Percent Auto 79.2 % (50.0-70.0); Platelet Count Result 292 K/mm3 (150-420); Red Blood Count 2.72 M/mm3 (4.20-5.40); Red Cell Distribution Width 15.4 % (11.6-14.4); White Blood Count 9.8 K/mm3 (4.8-10.8)
[2021-01-11 15:20] LABS: Prothrombin Time 11.1 Seconds (9.50-12.10)
[2021-01-11 15:29] LABS: BNP 471 pg/mL (0-100)
[2021-01-11 15:39] LABS: Alanine Aminotransferase 10 U/L (14-59); Albumin Level 2.2 g/dL (3.4-5.0); Alkaline Phosphatase 70 U/L (46-116); Anion Gap 8 mmol/L (8-16); Aspartate Amino Transferase 29 U/L (15-37); Bilirubin,Total 0.5 mg/dL (0.00-1.00); Blood Urea Nitrogen 13 mg/dL (7-18); Calcium 8.6 mg/dL (8.5-10.1); Carbon Dioxide 27 mmol/L (21-32); Chloride 92 mmol/L (98-108); Estimated Glomerular Filt Rate 60; Glucose 155 mg/dL (70-99); Osmolality Calculated 267 mOsm/kg (285-295); Sodium 127 mmol/L (136-145); Total Protein 7.9 g/dL (6.4-8.2)
[2021-01-11 15:42] LABS: Troponin I 16.2 ng/L (0.00-60.4)
[2021-01-11 15:43] LABS: Thyroid Stimulating Hormone 0.62 uIU/mL (0.36-3.74)
[2021-01-11 16:04] LABS: Magnesium 1.6 mg/dL (1.8-2.4); Phosphorus 2.4 mg/dL (2.6-4.7)
--- NOTE | 2021-01-11 16:08 | PC.NURSE ---
ERROR IN DOCUMENTATION FROM VITAL SIGNS UPLOAD. PLEASE DISREGARD VITAL SIGNS. SEE PAPER CHART.
--- NOTE | 2021-01-11 16:18 | ED.GENADULT ---
HPI - General Adult General Chief complaint: Arrhythmia/Palpitations Stated complaint: elevated or irregular heart rate Source: patient Mode of arrival: ambulatory Limitations: no limitations History of Present Illness HPI narrative: Beverly is an 85F with a complex PMH of HTN, HLD, anemia, Myeloma, worsening memory and physical deconditioning since having COVID in October. She was in her PCP's office for decreased memory and fatigue. Reportedly she was found to have an irregular rhythm and was referred to the ED. She is very hard of hearing making a history almost impossible to gather. Her son denies any acute symptoms but she has had global decline since September. Related Data Home Medications Medication Instructions Recorded Confirmed acetaminophen 500 mg PO Q6H PRN 11/09/20 01/02/21 levothyroxine 75 mcg PO DAILY 11/09/20 01/02/21 simvastatin 10 mg PO HS 11/09/20 01/02/21 dexamethasone 4 mg PO DAILY 01/11/21 01/11/21 lenalidomide [Revlimid] 25 mg PO DAILY 01/11/21 01/11/21 Allergies Allergy/AdvReac Type Severity Reaction Status Date / Time No Known Allergies Allergy Unknown Verified 11/09/20 15:11 Review of Systems Review of Systems: ROS unobtainable: Yes unobtainable due to medical condition [facility] Past Medical History Medical History Bilateral cataracts COVID-19 Hypercholesterolemia Hypothyroidism Lytic bone lesions on xray Surgical History Surgical History H/O bilateral cataract extraction H/O hemorrhoidectomy History of removal of pigmented skin lesion Previous back surgery Family History Family History Mother Family history of malignant neoplasm Carcinoma of colon Father No problems noted. Sibling Cancer Brother leukemia and another brother with another type of can Dementia 1 brother Social History Social History Social History: The patient has 3 sons. There durable power consumer attorney for healthcare. The patient is a full code. She lives home alone she is . 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 Smoking packs per day: 1 Smoking cigarettes per day: 20.0 Smoking status: Never smoker Tobacco type: cigarettes Second hand tobacco smoke exposure: No Smoking end date: [birth year]02/1955 Alcohol intake: current Substance use: never Substance use type: does not use Gender identity (if verbalized by the patient): Female Spiritual care concerns: No Exam Const: General: no acute distress Other: Fatigued appearing. Was so hard of hearing only minimal history could be obtained. HENMT: Other: normocephalic, atraumatic Eyes: Conjunctivae: conjunctivae normal Pupils: Equal, round and reactive pupils present Neck: Neck: normal visual inspection Chest: Chest palpation & inspection: normal inspection of the chest Resp: Effort & Inspection: normal respiratory effort Auscultation: clear to auscultation bilaterally Cardio: Rate: tachycardic Rhythm: abnormal rhythm Other: irregulary irregular rhythm GI: GI Palp: Yes Soft to palpation, No Tenderness to palpation present (GI) and No Guarding due to palpation present (GI) : General: Yes no CVA tenderness Back/Spine/Pelvis: Back: no CVA tenderness Skin: General skin exam: normal color Rashes: no rashes Neuro: General: moves all extremities and CN's II-XI intact bilaterally Extrem: General: normal to inspection Psych: Mental Status: mental status grossly normal Course Course Emergency Course: Beverly was evaluated. Ordered labs, EKG and CXR. EKG showed sinus rhythm with a rate of 90, frequent PVC and PAC, left axis deviation, RBBB and diffuse artifact. EXAMINATION: XR chest 1V portable INDICAT
[2021-01-11] MEDS: POTASSIUM CHLORIDE 20 MEQ TABLET 40 MEQ PO (16:53)
[2021-01-11] MEDS: SODIUM CHLORIDE 0.9% IV 1,000 ML 150 ML IV CONT (16:54)
[2021-01-11] MEDS: MAGNESIUM SULF 2 GM/WATER 50ML 2 GM/50 ML BAG IVPB (16:55)
[2021-01-11] MEDS: KCL 20 MEQ/SW 100 ML 100 ML 50 MEQ IVPB (17:55)
[2021-01-11] MEDS: MORPHINE SULFATE (*CRX) 4 MG/ML INJ IV PUSH (18:25)
--- NOTE | 2021-01-11 18:41 | PC.NURSE ---
1815 pt c/o severe back pain. erp notified. morphine ivp to be given prior to transfer to ease pain during ambulance transport.
--- NOTE | 2021-01-11 18:42 | PC.NURSE ---
1700 PT TOOK HOME MEDICATION CHEMO DRUG APPROVED BY [facility].
--- NOTE | 2021-01-11 18:43 | PC.NURSE ---
PT TRANSFERRED WITH NS IVF AND K+ IVF INFUSING. SEE [facility]LLI NURSING DOCUMENTATION FOR STOP TIMES.
== END 2021-01-11 18:34 | disposition short-term general hospital (02) ==
PROVIDERS: Emergency Provider Family Medicine; PCP Internal Medicine
DX: E87.8 Other disorders of electrolyte and fluid balance, not elsewhere classified (principal); I49.3 Ventricular premature depolarization; Z86.16 Personal history of COVID-19; E78.00 Pure hypercholesterolemia, unspecified; E03.9 Hypothyroidism, unspecified
CPT/HCPCS: 36415; 71045; 80053; 83735; 83880; 84100; 84443; 84484; 85025; 85610; 93005; 96365; 96367; 96375; 99285; A9270; J2270; J3475; J3480; J7030

== ENCOUNTER 2021-01-11 19:35 | Inpatient (IN) | payer MEDICARE, SELFPAY ==
--- NOTE | ~2021-01-11 | XR_ITS ---
EXAMINATION: XR chest 1V portable DATE: 01/11/2021 20:51 INDICATION: COVID several months prior presenting with dyspnea. TECHNIQUE: frontal view of the chest was obtained. COMPARISON: Chest radiograph dated 01/11/2021 at 3:23 PM and 11/16/2020 FINDINGS: Again seen are coarse reticular and patchy airspace opacities throughout both lungs, unchanged since the most recent radiograph which appear improved when compared with study from 2 months prior likely reflecting chronic sequela of prior COVID pneumonia. No new airspace opacities, pleural effusion or p neumothorax. The cardiomediastinal silhouette is normal. IMPRESSION: 1. No recent interval change in bilateral airspace opacities improved since 2 months prior likely ref lecting chronic sequela of prior COVID pneumonia. No definitive more acute cardiopulmonary disease. Reviewed, dictated and finalized at location A. ARCH DEVELOPMENT DIRECTOR IMPRESSION: 1. No recent interval change in bilateral airspace opacities improved since 2 m onths prior likely reflecting chronic sequela of prior COVID pneumonia. No defi nitive more acute cardiopulmonary disease.
--- NOTE | ~2021-01-11 | US_ITS ---
EXAMINATION:US venous doppler LE BI INDICATION:Leg swelling TECHNIQUE: Multiple grayscale, color flow and Doppler images of the right and left lower extremity de ep venous systems were obtained and reviewed. COMPARISON:No prior studies for comparison. FINDINGS: The common femoral, superficial femoral and popliteal veins demonstrate normal respiratory variation, augmentation and compressibility. Color flow is also seen within the posterior tibial, pe roneal, greater saphenous and profunda veins. IMPRESSION: 1: No lower extremity deep venous thrombosis. Reviewed, dictated and finalized at location B. COORDINATOR
[2021-01-11 10:40] VITALS: BP 122/62; PULSE 70; RESP 20; TEMP 36.4; O2SAT 98
--- NOTE | 2021-01-11 20:00 | PM.IMHP ---
H&P: HPI History of Present Illness Date/Time: 01/11/21 19:30 Chief Complaint: Electrolyte abnormalities, PVCs. Narrative: This is an 85-year-old female currently being treated for multiple myeloma, hypertension, hyperlipidemia, and hypothyroidism who is being directly admitted to the medical floor from the emergency department the [facility] for further treatment and evaluation of several electrolyte abnormalities as well as frequent PVCs. She is known to the hospitalist service with an admission to us in early November 2020 at which time she tested positive for COVID-19. She was also found to have lytic bone lesions on imaging and was subsequently diagnosed with multiple myeloma for which she is currently undergoing oral chemotherapy and palliative radiation to the spine. It looks like she has been hospitalized at [facility] on a couple occasions since that time for generalized weakness and physical deconditioning. In fact her son reports that she seems to have been increasingly weak and more forgetful since last September. In any regard, seen by her primary care provider today and was directed to the emergency department due to findings of an irregular heart rhythm. She was found to have several, mild electrolyte abnormalities and frequent PACs and PVCs and the physician at the outside facility that she would best be served at [place] as she may need to be seen by a superintendent fish hatchery. At the time my evaluation the patient is resting comfortably, and with further questioning she denies having experienced any chest discomfort, palpitations skipped heartbeats, etcetera. Her main complaints are of continued pain in her low back from lytic lesions as well as constipation and some mild edema in her ankles. Her appetite has not been great but she denies vomiting. She also denies fever, chills, sweats, sinus congestion, rhinorrhea, otalgia, odynophagia, dysphagia, diarrhea, and dysuria. Review of Systems Review of Systems: Narrative: Twelve systems were reviewed with pertinent positives and negatives as per HPI. No headache. She denies falls. No vertigo. Some lightheadedness but no overt near-syncope or syncope. She denies chest pain and pleuritic pain. No shortness of breath, orthopnea, or PND. She has had some mild isabela ankle edema which is unusual for her. No calf pain or tenderness. No history of venous thromboembolism. Except as documented, all other systems were reviewed and are negative. [facility], [facility] Past Medical History Medical History (Updated 01/11/21 @ 23:45 by Toyin Reyes PA-C) Anemia Arthritis COVID-19 (~11/2020) Hypercholesterolemia Hypothyroidism Multiple myeloma Patient of Drs. Ontiveros and Queenie. Skin cancer Surgical History Surgical History History of bilateral cataract extraction History of hemorrhoidectomy History of spinal surgery (~2017) Status post surgical removal of malignant neoplasm of skin Family History Family History Mother Family history of malignant neoplasm Carcinoma of colon Father No problems noted. Sibling Cancer Brother leukemia and another brother with another type of can Dementia 1 brother Social History Social History (Updated 01/11/21 @ 23:41 by Toyin Reyes PA-C) Social History: The patient is and lives in [place]. She has 3 sons, and her son Asad lives closest and helps her out the most. She drove a school bus for many years. She smoked for several months as a teenager. No alcohol or illicit substance use. Her son Asad is her healthcare power of inspector barrel and she is listed as a do not resuscitate. Smoking packs per day: 1 Smoking cigarettes per day: 20.0 Smoking status: Former smoker Tobacco type: cigarettes Second hand tobacco smoke exposure: No Smoking end date: [birth year]02/1955 Additional smoking assessment c
[2021-01-11 20:06] VITALS: BP 123/54; PULSE 92; RESP 24; TEMP 37.1; O2SAT 97; BMI 19.8
--- NOTE | 2021-01-11 20:14 | ADMGEN ---
This patient, Beverly Linares, was admitted to Medical Room [facility]- at 1915. Patient/family oriented to hospital policies and general routines including ID bracelet, bed and alarms, visiting hours, pain management, procedures, bathroom and other care routines, personal items, smoking policy, room service/diet, and visiting hours. Information on how to activate the Rapid Response Team has been discussed. Patient/Family are encouraged to report perceived risks to care and to ask questions if they do not understand what they are told or what they should do.
--- NOTE | 2021-01-11 20:16 | ADMGEN ---
This patient, Beverly Linares, was admitted to Medical Room 252-01. Patient/family oriented to hospital policies and general routines including ID bracelet, bed and alarms, visiting hours, pain management, procedures, bathroom and other care routines, personal items, smoking policy, room service/diet, and visiting hours. Information on how to activate the Rapid Response Team has been discussed. Patient/Family are encouraged to report perceived risks to care and to ask questions if they do not understand what they are told or what they should do.
[2021-01-11 20:33] LABS: Hematocrit 22.8 % (37.0-47.0); Hemoglobin 7.6 g/dL (12.0-15.0)
[2021-01-11 20:45] LABS: Anion Gap 6 mmol/L (8-16); Blood Urea Nitrogen 13 mg/dL (7-17); Calcium 7.9 mg/dL (8.4-10.2); Carbon Dioxide 23 mmol/L (22-30); Chloride 98 mmol/L (98-107); Estimated Glomerular Filt Rate > 60; Glucose 117 mg/dL (65-105); Potassium 3.5 mmol/L (3.4-5.0); Sodium 127 mmol/L (137-145)
[2021-01-11] MEDS: DOCUSATE SODIUM 100 MG CAPSULE PO (20:45)
[2021-01-11] MEDS: SODIUM CHLORIDE 0.9% IV 1,000 ML 100 ML IV CONT (20:46)
[2021-01-12] VITALS (19 sets, daily range): BP systolic 100–144; BP diastolic 51–98; PULSE 61–91; RESP 18–24; TEMP 36.1–38; O2SAT 95–99
--- NOTE | 2021-01-12 | ECHO_ITS ---
Patient Info Name: Beverly Linares Age: 85 years : 1935 Gender: Female Ht: 66 in Wt: 121 lbs BSA: 1.59 m2 BP: 109 / 51 mmHg Technical Quality: Fair Exam Date: 01/12/2021 8:40 AM Exam Location: [facility] Patient Status: Outpatient Admit Date: 01/11/2021 Staff Ordering Physician: Toyin Reyes PA-C Flanging Roll Operator: Lucille Landeros RDCS Attending Provider: Esa Marrero PA-C Referring Physician: Amy SAM; Exam Type: CA echo doppler color flow Study Info Indications - ECTOPY R06.00 - Dyspnea, unspecified Complete two-dimensional, color flow and Doppler transthoracic echocardiogram is performed. Summary 1. Complete two-dimensional, color flow and Doppler transthoracic echocardiogram is performed. 2. Left ventricular chamber dimension is normal. 3. Left ventricular systolic function is normal, estimated at 60-65%. 4. The left ventricular diastolic function is abnormal. 5. E/e' 14 is mildly elevated. 6. There is mild aortic valve sclerosis. 7. The mitral valve has moderately calcified annulus. 8. There is mild mitral valve regurgitation. 9. There is mild tricuspid valve regurgitation. 10. No pulmonary hypertension, estimated pulmonary arterial systolic pressure is 35 mmHg. 11. There is trace pulmonic regurgitation. Left Ventricle E/e' 14 is mildly elevated. Left ventricular chamber dimension is normal. Left ventricular systolic function is normal, estimated at 60-65%. The left ventricular diastolic function is abnormal. Right Ventricle Right ventricular chamber dimension is normal. Right ventricular systolic function is normal. Left Atria Left atrial chamber dimension is normal. Right Atria Right atrial chamber dimension is normal. Aortic Valve The aortic valve is trileaflet. There is mild aortic valve sclerosis. There is no aortic valve stenosis. There is trace aortic valve regurgitation. Pulmonic Valve There is trace pulmonic regurgitation. Mitral Valve The mitral valve has moderately calcified annulus. There is no mitral valve stenosis. There is mild mitral valve regurgitation. Tricuspid Valve There is mild tricuspid valve regurgitation. No pulmonary hypertension, estimated pulmonary arterial systolic pressure is 35 mmHg. Pericardium/Pleural There is no pericardial effusion. Inferior Vena Cava Normal inferior vena cava with >50% collapse upon inspiration consistent with normal right atrial pressure, 5 mmHg. Aorta The aortic root size at the sinus of Valsalva is normal. Left Ventricular Outflow Tract Name Value Normal LVOT 2D LVOT Diameter 1.9 cm LVOT Doppler LVOT Peak Gradient 5 mmHg LVOT Mean Gradient 3 mmHg LVOT VTI 25 cm LVOT VTI/AV VTI Ratio 0.8 LVOT Stroke Volume 73 ml LVOT CO 4.9 l/min LVOT CI 3.1 l/min/m2 Pulmonic Valve Name
[2021-01-12] MEDS: ACETAMINOPHEN 500 MG TABLET PO ×2 (03:54→19:58)
[2021-01-12 05:56] LABS: Mean Corpuscular HGB Conc 32.8 g/dl (32-36); Mean Corpuscular Hemoglobin 28.6 pg (26-34); Platelet Count Result 243 k/mm3 (150-375); Red Blood Count 2.31 M/mm3 (4.2-5.4); Red Cell Distribution Width 15.6 % (11.5-14.5)
[2021-01-12 06:04] LABS: Anion Gap 4 mmol/L (8-16); Blood Urea Nitrogen 13 mg/dL (7-17); Calcium 8.2 mg/dL (8.4-10.2); Carbon Dioxide 24 mmol/L (22-30); Chloride 100 mmol/L (98-107); Estimated CRCL calculation 50 ml/min; Estimated Glomerular Filt Rate > 60; Glucose 111 mg/dL (65-105); Magnesium 1.9 mg/dL (1.6-2.3); Sodium 128 mmol/L (137-145)
[2021-01-12 06:06] LABS: Hematocrit 20.1 % (37.0-47.0); Hemoglobin 6.6 g/dL (12.0-15.0)
[2021-01-12] MEDS: LEVOTHYROXINE SODIUM 75 MCG TABLET PO (06:44)
[2021-01-12 07:17] LABS: Iron 24 ug/dL (37-170)
[2021-01-12 07:26] LABS: Percent Iron Saturation 11 % (20-50)
[2021-01-12] MEDS: SODIUM CHLORIDE 0.9% IV 1,000 ML 75 ML IV CONT (07:48)
[2021-01-12 08:26] LABS: Folic Acid 6.9 ng/mL (2.76->20)
[2021-01-12] MEDS: SODIUM CHLORIDE 0.9% IV 250 ML 30 ML IV CONT (08:55)
[2021-01-12] MEDS: DOCUSATE SODIUM 100 MG CAPSULE PO ×2 (09:30→17:00)
[2021-01-12] MEDS: LIDOCAINE 5% PATCH 1 PATCH TRANSDERM (09:31)
[2021-01-12] MEDS: polyethylene glycoL 3350 17 GM POWD.PACK PO (09:31)
[2021-01-12] MEDS: amLODIPine BESYLATE 5 MG TABLET PO (09:31)
[2021-01-12 10:21] LABS: Add Urine Microscopic? YES; Appearance Urine Turbid (Clear); Bacteria Urine 4+ /hpf; Bilirubin Urine Negative (Negative); Blood Urine 1+ (Negative); Color Urine Yellow (Yellow); Glucose Urine UA Negative (Negative); Ketones Urine Negative (Negative); Leukocyte Esterase Ur 2+ LEU/UL (Negative); Mucus Urine Heavy /lpf; Nitrate Urine Negative (Negative); Protein Urine 2+ mg/dL (Negative); Specific Grav Ur 1.015 (1.001-1.035); WBC Urine >75 /hpf
--- NOTE | 2021-01-12 10:38 | PM.IMPN ---
Progress Note: A&P Assessment and Plan (1) Anemia: Code(s): D64.9 - Anemia, unspecified Status: Chronic Assessment and Plan: Hgb this morning 6.6, possibly lower due to previous hemoconcentration from dehydration, and now receiving IV fluids. 2 u pRBCs ordered. Anemia possibly due to Revlimid. She does appear to be deficient in Vit B12. Iron panel suggests ACD/AI. No signs/symptoms of active bleeding. Dr. Ontiveros consulted and appreciate recommendations 2 u pRBCs currently being transfused today Repeat H&H after transfusion Repeat cbc tomorrow Cyanocobalamin 1000 mcg IM once now; defer further replacement to Dr. Ontiveros Monitor (2) Dehydration: Code(s): E86.0 - Dehydration Status: Acute Assessment and Plan: Patient appears to be euvolemic at my time of evaluation Will d/c IV fluids Currently being transfused 2 u pRBC Monitor volume status Encourage PO (3) Electrolyte abnormality: Code(s): E87.8 - Other disorders of electrolyte and fluid balance, not elsewhere classified Status: Acute Assessment and Plan: K+ 4.0 today, Mag 1.9. Hyponatremia improving at 128. Revlimid possible etiology. Possible etiology behind PVCs? Monitor and replace as needed Consider resuming IV fluids if appearing volume depleted and no improvement in hyponatremia Monitor (4) Premature beats: Code(s): I49.49 - Other premature depolarization Status: Acute Assessment and Plan: EKG demonstrated premature atrial and ventricular beats of which the patient is asymptomatic. Tele shows frequent PVCs and possible p waves with dropped QRS complexes. Echo shows normal EF with normal chamber dimension. Troponin negative on arrival. Given history of Multiple Myeloma with current treatment I have asked Dr. Brower (Cardiology) to see patient for further input but do not anticipate an extensive work up with above findings. Await further rec from Cardiology; appreciate recommendations Monitor on Telemetry (5) Multiple myeloma: Code(s): C90.00 - Multiple myeloma not having achieved remission Status: Chronic Assessment and Plan: Patient recently completed palliative radiotherapy per Dr. Jerome. Follows Dr. Ontiveros. She is on Revlimid which has been on hold since admission. Dr. Ontiveros consulted and appreciate recommendations. Await further rec from Dr. Ontiveros Pain control as need Await LE venous doppler results to rule out DVT as patient higher risk of clots Monitor (6) Hypothyroidism: Qualifiers: Hypothyroidism type: unspecified Qualified Code(s): E03.9 - Hypothyroidism, unspecified Code(s): E03.9 - Hypothyroidism, unspecified Status: Chronic Assessment and Plan: TSH WNL Continue levothyroxine (7) Hypertension: Qualifiers: Hypertension type: essential hypertension Qualified Code(s): I10 - Essential (primary) hypertension Code(s): I10 - Essential (primary) hypertension Status: Acute Assessment and Plan: BP stable at 120s sys most recently Continue home medications. Subjective Date/time seen: 01/12/21 10:38 Interval history: Patient is a 85 yo F who is currently being treated for multiple myeloma (on PO Revlimid; recently finished palliative radiotherapy), and has history of hypertension, hyperlipidemia, and hypothyroidism who is seen in follow up for anemia, dehydration, electrolyte abnormalities and PVCs; patient also being seen for her multiple myeloma. Patient states she feels reasonable today. Still complains of back pain, but states this feels better with her lidocaine patches this morning. She feels somewhat stronger today. She
[2021-01-12] MEDS: CYANOCOBALAMIN INJ 1,000 MCG/ML VIAL 1000 MCG IM (12:04)
--- NOTE | 2021-01-12 12:45 | PDONCCN ---
HPI - Date of Consult Date/Time: 01/12/21 12:45 Requesting Physician: Esa Marrero PA-C Primary Care Provider: Davy Isabel MD - Consult Narrative Reason for consult: Profound anemia. Narrative: Beverly Linares is a 85 year old female with history of multiple myeloma in completed myeloma therapy recently. Patient is currently on maintenance treatment with Revlimid. She was on XT was treatment for bone involvement with myeloma. Patient also received palliative radiation therapy to the bone. She came into the hospital with complain of generalized tiredness and fatigue and back pain. She denies any bleeding including melena hematochezia. She has been eating poorly but denies any recent weight loss. Labs showed hemoglobin of 7.6 dropped to 6.6 today. Platelet count and WBC count is stable. Patient is currently receiving 2 units of packed red blood cell. Review of Systems - Review of Systems All systems reviewed & are unremarkable except as noted in HPI and [facility] Medical History: Medical History (Last Updated 01/11/21 @ 23:45 by Toyin Reyes PA-C) Anemia Arthritis COVID-19 Onset Date: ~11/2020 Hypercholesterolemia Hypothyroidism Multiple myeloma Patient of Drs. Ontiveros and Queenie. Skin cancer Surgical History: Surgical History (Last Reviewed 01/11/21 @ 23:39 by Toyin Reyes PA-C) History of bilateral cataract extraction History of hemorrhoidectomy History of spinal surgery Onset Date: ~2017 Status post surgical removal of malignant neoplasm of skin Family History: Family History (Last Reviewed 01/11/21 @ 23:39 by Toyin Reyes PA-C) Mother Family history of malignant neoplasm Carcinoma of colon Father No problems noted. Sibling Cancer Brother leukemia and another brother with another type of can Dementia 1 brother - Social History Social History: Social History (Last Updated 01/11/21 @ 23:41 by Toyin Reyes PA-C) Gender Identity: Gender identity (if verbalized by the patient): Female Alcohol Use: Alcohol intake: never Substance Use: Substance use: never Substance use type: does not use Others: Spiritual care concerns: No Smoking Status: Smoking status: Former smoker Tobacco type: cigarettes Second hand tobacco smoke exposure: No Smoking end date: 12/02/1954 Smoking Pack-years: Smoking packs per day: 1 Smoking cigarettes per day: 20.0 Comments: Additional smoking assessment comments: Smoked for 6 months when she was 15. Meds Home Medications Medication Instructions Recorded Confirmed Type acetaminophen 500 mg PO Q6H PRN 11/09/20 01/11/21 History levothyroxine 75 mcg PO DAILY 11/09/20 01/11/21 History simvastatin 10 mg PO HS 11/09/20 01/11/21 History albuterol sulfate [Proventil HFA] 2 puff INHALATION QIDRT PRN #1 g 12/05/20 01/11/21 Rx amlodipine [Norvasc] 5 mg PO QAM #30 tablet 12/05/20 01/11/21 Rx lidocaine [Lidoderm] 1 patch TRANSDERMAL DAILY #15 ea 12/05/20 01/11/21 Rx oxycodone 2.5 mg PO Q6H PRN #30 tablet 12/05/20 01/11/21 Rx lenalidomide [Revlimid] 25 mg PO DAILY 01/11/21 01/11/21 History Allergies Allergy/AdvReac Type Severity Reaction Status Date / Time No Known Allergies Allergy Unknown Verified 11/09/20 15:11 Results - Labs CBC & Chem 7: 01/12/21 05:12 01/12/21 05:12 Labs: Short CBC 01/11/21 01/12/21 Range/Units 20:19 05:12 WBC 7.0 (4.5-10.0) K/mm3 Hgb 7.6 L 6.6 L* (12.0-15.0) g/dL Hct 22.8 L 20.1 L* (37.0-47.0) % Plt Count 243 D (150-375) k/mm3 BMP 01/11/21 01/12/21 20:19 05:12 Sodium 127 L 128 L Potassium 3.5 4.0 Chloride 98 100 Carbon Dioxide 23 24 BUN 13 D 13 Creatinine 0.60 L 0.60 L Glucose 117 H 111 H Calcium 7.9 L 8.2 L Urine 01/12/21 Range/Units 09:55 Urine Color Yellow (Yellow) Urine Appearance Turbid H (Clear) Urine pH 6.0 (
[2021-01-12] MEDS: SODIUM CHLORIDE 0.9% IV 100 ML 30 ML (12:55)
[2021-01-12 13:34] LABS: Lactate Dehydrogenase 277 U/L (313-618)
[2021-01-12 13:42] LABS: Immunoglobulin A 89 mg/dL (70-400); Immunoglobulin G 2013 mg/dL (700-1600)
[2021-01-12 13:45] LABS: Immunoglobulin M < 25 mg/dL (40-230)
--- NOTE | 2021-01-12 14:52 | PC.NURSE ---
On 01/12/21, the student, [ Arthur Chambers], provided care and completed [employer] documentation on this patient. I have reviewed the student's documentation and agree with the findings.
--- NOTE | 2021-01-12 14:55 | PC.NURSE ---
On 01/12/21, the student, [ Ingris Piña], provided care and completed [facility] documentation on this patient. I have reviewed the student's documentation and agree with the findings.
[2021-01-12 18:24] LABS: Hematocrit 28.9 % (37.0-47.0); Hemoglobin 9.8 g/dL (12.0-15.0)
--- NOTE | 2021-01-12 19:00 | PM.CNCAR ---
Assessment and Plan Assessment and plan (1) Premature beats: Code(s): I49.49 - Other premature depolarization Status: Acute Assessment and Plan: Patient has been noted to have new frequent premature beats which appear, now, to be primarily APCs. Does not appear to be having many PVCs at this time. The APCs are asymptomatic. No underlying structural heart disease. These are benign and they do not need to be treated. If they are causing concern, the amlodipine can be switched to metoprolol succinate 25 mg daily which will likely reduce the frequency of APCs. (2) Hypertension: Qualifiers: Hypertension type: essential hypertension Qualified Code(s): I10 - Essential (primary) hypertension Code(s): I10 - Essential (primary) hypertension Status: Acute Assessment and Plan: Currently taking amlodipine for hypertension. (3) Anemia: Code(s): D64.9 - Anemia, unspecified Status: Chronic Assessment and Plan: Anemia which is due in part to iron deficiency and perhaps secondary to her chemotherapy. Received 2 units of packed cells this admission. (4) Multiple myeloma: Code(s): C90.00 - Multiple myeloma not having achieved remission Status: Chronic Assessment and Plan: Treated by Dr. Phoenix with radiation therapy and Revlimid. (5) Electrolyte abnormality: Code(s): E87.8 - Other disorders of electrolyte and fluid balance, not elsewhere classified Status: Acute Assessment and Plan: Improved distal mildly hyponatremic Additional Plan Thank you for asking us to participate in the care of this very nice lady. Will sign off but please let me know if we can be of further help. History of Present Illness History of Present Illness Consult date/time: 01/12/21 19:00 Reason For Visit: Electrolyte abnormalities, PACs Narrative: 01/12/2021 Beverly Linares is an 85-year-old white female whom I was asked to see at the request of the hospitalist for my advice and opinion regarding her frequent PVCs and PACs, in consultation. The patient has a history of hypertension, hyperlipidemia multiple myeloma discovered 11/2020 undergoing oral chemo and palliative radiation to the spine), worsening memory and frailty, and is very hard of hearing. Apparently she has been declining since she had COVID last October. She has not been back to her house since then, except to pet her cat. Dr. Isabel found an irregular heartbeat in the office and sent her to the emergency room where she was found to have PVCs and PACs. She was admitted for further evaluation and treatment. She also had worsening of her anemia with a hemoglobin of 7.8, hyponatremia sodium 127, potassium is 3.2 and a BNP of 471. Since admission her electrolyte abnormalities have been corrected and she has been hydrated. She received 2 units Of packed cells for progressive anemia. She denies any chest pain, heartburn, palpitations, dizziness, or edema. Telemetry today shows sinus rhythm with occasional to frequent APCs. She has not had any sustained tachyarrhythmias. There is no history of any heart disease. Echocardiogram today normal left ventricular function EF 60-65%, diastolic dysfunction, and mild MR/TR. Review of Systems Constitutional: Constitutional: Reports fatigue and Reports weakness Eyes: Eyes: Reports no additional eye complaints ENT: Denies Normal hearing present (Hard of hearing) Cardiovascular: Cardiovascular: Denies chest pain, Denies diaphoresis, Denies pedal edema, Denies lightheadedness and Denies palpitations Respiratory: Respiratory: Denies cough and Denies dyspnea Gastrointestinal: Gastrointestinal: Denies abdominal pain Genitourinary: Genitourinary: Denies hematuria Musculoskeletal: Musculoskeletal: Repo
[2021-01-12] MEDS: SIMVASTATIN 10 MG TABLET PO (19:58)
[2021-01-13] VITALS: PULSE 66
[2021-01-13 04:00] VITALS: BP 134/65; PULSE 73; PULSE 79; RESP 22; TEMP 36.6; O2SAT 94
[2021-01-13 05:54] LABS: Basophils Percent Auto 0.3 % (0.2-1.2); Eosinophils Absolute Auto 0.4 K/mm3 (0-0.3); Eosinophils Percent Auto 5.8 % (0-4.4); Hematocrit 29.8 % (37.0-47.0); Hemoglobin 9.9 g/dL (12.0-15.0); Immature Granulocyte Absolute 0.04 K/mm3 (0.00-0.031); Immature Granulocyte Percent A 0.5 % (0-0.5); Lymphocytes Absolute Auto 1.35 K/mm3 (0.9-3.2); Lymphocytes Percent Auto 18.1 % (18.3-44.2); Mean Corpuscular HGB Conc 33.2 g/dl (32-36); Mean Corpuscular Hemoglobin 28.1 pg (26-34); Mean Corpuscular Volume 84.7 fl (80-100); Mean Platelet Volume 10.9 fl (7.4-10.4); Monocytes Absolute Auto 1.2 K/mm3 (0.1-0.6); Monocytes Percent Auto 15.5 % (2.6-8.5); Neutrophils Absolute Auto 4.5 K/mm3 (1.3-6.7); Neutrophils Percent Auto 59.8 % (45.5-73.1); Platelet Count Result 230 k/mm3 (150-375); Red Blood Count 3.52 M/mm3 (4.2-5.4); Red Cell Distribution Width 15.5 % (11.5-14.5); White Blood Count 7.5 K/mm3 (4.5-10.0)
[2021-01-13 06:02] LABS: Anion Gap 5 mmol/L (8-16); Blood Urea Nitrogen 11 mg/dL (7-17); Carbon Dioxide 25 mmol/L (22-30); Chloride 99 mmol/L (98-107); Estimated CRCL calculation 44 ml/min; Estimated Glomerular Filt Rate > 60; Glucose 103 mg/dL (65-105); Magnesium 1.7 mg/dL (1.6-2.3); Potassium 3.7 mmol/L (3.4-5.0); Sodium 129 mmol/L (137-145)
[2021-01-13] MEDS: LEVOTHYROXINE SODIUM 75 MCG TABLET PO (06:08)
[2021-01-13] MEDS: ACETAMINOPHEN 500 MG TABLET PO ×2 (06:10→12:34)
[2021-01-13 08:00] VITALS: PULSE 90
[2021-01-13] MEDS: polyethylene glycoL 3350 17 GM POWD.PACK PO (08:31)
[2021-01-13] MEDS: amLODIPine BESYLATE 5 MG TABLET PO (08:31)
[2021-01-13] MEDS: LIDOCAINE 5% PATCH 1 PATCH TRANSDERM (08:32)
[2021-01-13] MEDS: DOCUSATE SODIUM 100 MG CAPSULE PO ×2 (08:32→16:41)
[2021-01-13] MEDS: CYANOCOBALAMIN INJ 1,000 MCG/ML VIAL 1000 MCG IM (08:32)
--- NOTE | 2021-01-13 10:17 | PM.IMPN ---
Progress Note: A&P Assessment and Plan (1) UTI (urinary tract infection): Code(s): N39.0 - Urinary tract infection, site not specified Status: Acute Assessment and Plan: UA highly suspicious for UTI. She is not septic appearing with stable VS; mild fever overnight last night. No leukocytosis. She is immunocompromised given history of Multiple Myeloma. She was started on empiric Rocephin on 01/12. UCx pending Continue empiric Rocephin for now Tailor antibiotics to cultures Monitor Hopefully discharge in 1-2 days pending labs and urine culture results (2) Anemia: Code(s): D64.9 - Anemia, unspecified Status: Chronic Assessment and Plan: Hgb 6.6 on 01/12 and subsequently transfused 2 u pRBCs. Hgb now stable at 9.9 this morning. Anemia possibly due to Revlimid. She does appear to be deficient in Vit B12 which is now being replaced per Dr. Ontiveros. Iron panel suggests ACD/AI. No signs/symptoms of active bleeding. Dr. Ontiveros following and appreciate recommendations Repeat CBC tomorrow Cyanocobalamin 1000 mcg IM daily per Dr. Ontiveros Monitor (3) Dehydration: Code(s): E86.0 - Dehydration Status: Acute Assessment and Plan: Patient appears to be euvolemic at my time of evaluation Will hold IV fluids, encourage PO fluids Monitor volume status (4) Electrolyte abnormality: Code(s): E87.8 - Other disorders of electrolyte and fluid balance, not elsewhere classified Status: Acute Assessment and Plan: K+ 3.7 today, Mag 1.7. Hyponatremia improving at 129. Revlimid possible etiology. Possible etiology behind PVCs? Monitor and replace as needed Consider resuming IV fluids if appearing volume depleted and no improvement in hyponatremia Monitor (5) Premature beats: Code(s): I49.49 - Other premature depolarization Status: Acute Assessment and Plan: EKG demonstrated premature atrial and ventricular beats of which the patient is asymptomatic. Tele shows frequent PVCs and possible p waves with dropped QRS complexes. Echo shows normal EF with normal chamber dimension. Troponin negative on arrival to [place]. Given history of Multiple Myeloma with current treatment I have asked Dr. Brower (Cardiology) to see patient for further input and appreciate her recommendations; she is okay for discharge from Cardiology standpoint Will d/c tele as no change in clinical status and patient asymptomatic (6) Multiple myeloma: Code(s): C90.00 - Multiple myeloma not having achieved remission Status: Chronic Assessment and Plan: Patient recently completed palliative radiotherapy per Dr. Jerome. Follows Dr. Ontiveros. She is on Revlimid which has been on hold since admission. Dr. Ontiveros consulted and appreciate recommendations. Await further rec from Dr. Ontiveros Pain control as need Monitor (7) Hypothyroidism: Qualifiers: Hypothyroidism type: unspecified Qualified Code(s): E03.9 - Hypothyroidism, unspecified Code(s): E03.9 - Hypothyroidism, unspecified Status: Chronic Assessment and Plan: TSH WNL Continue levothyroxine (8) Hypertension: Qualifiers: Hypertension type: essential hypertension Qualified Code(s): I10 - Essential (primary) hypertension Code(s): I10 - Essential (primary) hypertension Status: Acute Assessment and Plan: BP stable at 130s sys most recently Continue home medications. Subjective Date/time seen: 01/13/21 10:17 Interval history: Patient is a 85 yo F who is currently being treated for multiple myeloma (on PO Revlimid; recently finished palliative radiotherapy), an
[2021-01-13 14:00] VITALS: BP 128/87; PULSE 82; RESP 16; TEMP 36.6; O2SAT 96
[2021-01-13 18:20] LABS: SARS-CoV-2 RNA PCR Negative
[2021-01-13] MEDS: SIMVASTATIN 10 MG TABLET PO (20:53)
[2021-01-13] MEDS: oxyCODONE HCL (*CRX) 2.5 MG TAB IR PO (20:57)
[2021-01-13 21:57] VITALS: BP 135/63; PULSE 75; RESP 18; TEMP 36.1; O2SAT 98
[2021-01-14 05:04] VITALS: BP 121/69; PULSE 77; RESP 20; TEMP 36.4; O2SAT 97
[2021-01-14] MEDS: LEVOTHYROXINE SODIUM 75 MCG TABLET PO (05:40)
[2021-01-14 05:54] LABS: Basophils Percent Auto 0.4 % (0.2-1.2); Eosinophils Absolute Auto 0.4 K/mm3 (0-0.3); Eosinophils Percent Auto 4.9 % (0-4.4); Hematocrit 29.2 % (37.0-47.0); Hemoglobin 9.7 g/dL (12.0-15.0); Immature Granulocyte Absolute 0.06 K/mm3 (0.00-0.031); Immature Granulocyte Percent A 0.8 % (0-0.5); Lymphocytes Absolute Auto 1.36 K/mm3 (0.9-3.2); Lymphocytes Percent Auto 18.9 % (18.3-44.2); Mean Corpuscular HGB Conc 33.2 g/dl (32-36); Mean Corpuscular Hemoglobin 28.1 pg (26-34); Mean Corpuscular Volume 84.6 fl (80-100); Mean Platelet Volume 10.7 fl (7.4-10.4); Monocytes Absolute Auto 1.3 K/mm3 (0.1-0.6); Monocytes Percent Auto 18.5 % (2.6-8.5); Neutrophils Absolute Auto 4.1 K/mm3 (1.3-6.7); Neutrophils Percent Auto 56.5 % (45.5-73.1); Platelet Count Result 239 k/mm3 (150-375); Red Blood Count 3.45 M/mm3 (4.2-5.4); Red Cell Distribution Width 15.2 % (11.5-14.5); White Blood Count 7.2 K/mm3 (4.5-10.0)
[2021-01-14 06:52] LABS: Anion Gap 4 mmol/L (8-16); Blood Urea Nitrogen 10 mg/dL (7-17); Calcium 7.5 mg/dL (8.4-10.2); Carbon Dioxide 25 mmol/L (22-30); Chloride 99 mmol/L (98-107); Estimated CRCL calculation 44 ml/min; Estimated Glomerular Filt Rate > 60; Glucose 102 mg/dL (65-105); Magnesium 1.5 mg/dL (1.6-2.3); Potassium 3.1 mmol/L (3.4-5.0); Sodium 128 mmol/L (137-145)
[2021-01-14] MEDS: MAGNESIUM SULF 1 GM/D5W 100 ML 1 GM/100 ML BAG IVPB (07:36)
[2021-01-14] MEDS: POTASSIUM CHLORIDE 20 MEQ TABLET 40 MEQ PO (07:36)
[2021-01-14] MEDS: ACETAMINOPHEN 500 MG TABLET PO (07:42)
[2021-01-14] MEDS: amLODIPine BESYLATE 5 MG TABLET PO (08:50)
[2021-01-14] MEDS: DOCUSATE SODIUM 100 MG CAPSULE PO (08:51)
[2021-01-14] MEDS: polyethylene glycoL 3350 17 GM POWD.PACK PO (08:52)
[2021-01-14] MEDS: LIDOCAINE 5% PATCH 1 PATCH TRANSDERM (08:52)
[2021-01-14] MEDS: CYANOCOBALAMIN INJ 1,000 MCG/ML VIAL 1000 MCG IM (09:05)
--- NOTE | 2021-01-14 10:08 | PM.DS ---
DS: Admitting Diagnosis Admitting Diagnosis Admitting Diagnosis: Electrolyte abnormalities, PVCs DS: Discharge Diagnosis Discharge Diagnosis (1) UTI (urinary tract infection): Code(s): N39.0 - Urinary tract infection, site not specified Status: Acute Assessment and Plan: UA highly suspicious for UTI. She is not septic appearing with stable VS; mild fever evening of 01/12 - resolved. No leukocytosis. She is immunocompromised given history of Multiple Myeloma. She was started on empiric Rocephin on 01/12. UCx growing citrobacter freundii; resistent to Rocephin. This has been discontinued after 2 doses Will do Cipro 500 mg Q12hr starting today through 01/18 to complete 5 days total of antibiotic based on sensitivities F/u with PCP Discharge today (2) Anemia: Code(s): D64.9 - Anemia, unspecified Status: Chronic Assessment and Plan: Hgb 6.6 on 01/12 and subsequently transfused 2 u pRBCs. Hgb now stable at 9.7 this morning. Anemia possibly due to Revlimid. She does appear to be deficient in Vit B12 which is now being replaced per Dr. Ontiveros. Iron panel suggests ACD/AI. No signs/symptoms of active bleeding. Dr. Ontiveros following and appreciate recommendations CBC next week Cyanocobalamin 1000 mcg IM daily per Dr. Ontiveros during stay; will provide PO replacement (3) Dehydration: Code(s): E86.0 - Dehydration Status: Acute Assessment and Plan: Patient appears to be euvolemic at my time of evaluation Will hold IV fluids, encourage PO fluids Monitor volume status (4) Electrolyte abnormality: Code(s): E87.8 - Other disorders of electrolyte and fluid balance, not elsewhere classified Status: Acute Assessment and Plan: K+ 3.1 today, Mag 1.5. Hyponatremia stable at 128. Revlimid possible etiology. Possible etiology behind PVCs? K and mag replaced this morning BMP/mag level next week (5) Premature beats: Code(s): I49.49 - Other premature depolarization Status: Acute Assessment and Plan: EKG demonstrated premature atrial and ventricular beats of which the patient is asymptomatic. Tele shows frequent PVCs and possible p waves with dropped QRS complexes. Echo shows normal EF with normal chamber dimension. Troponin negative on arrival to [place]. Given history of Multiple Myeloma with current treatment I have asked Dr. Brower (Cardiology) to see patient for further input and appreciate her recommendations; she is okay for discharge from Cardiology standpoint Will d/c tele as no change in clinical status and patient asymptomatic (6) Multiple myeloma: Code(s): C90.00 - Multiple myeloma not having achieved remission Status: Chronic Assessment and Plan: Patient recently completed palliative radiotherapy per Dr. Jerome. Follows Dr. Ontiveros. She is on Revlimid which has been on hold since admission. Dr. Ontiveros consulted and appreciate recommendations. F/u with Dr. Ontiveros Hold revlimid at discharge (7) Hypothyroidism: Qualifiers: Hypothyroidism type: unspecified Qualified Code(s): E03.9 - Hypothyroidism, unspecified Code(s): E03.9 - Hypothyroidism, unspecified Status: Chronic Assessment and Plan: TSH WNL Continue levothyroxine (8) Hypertension: Qualifiers: Hypertension type: essential hypertension Qualified Code(s): I10 - Essential (primary) hypertension Code(s): I10 - Essential (primary) hypertension Status: Acute Assessment and Plan: BP stable at 120s sys most recently Continue home medications. DS: Summary Hospital Course Reason for hospitalization: Acute anemia,
[2021-01-14 14:00] VITALS: BP 140/64; PULSE 77; RESP 16; TEMP 36.4; O2SAT 97
[2021-01-14] MEDS: CIPROFLOXACIN 500 MG TAB PO (14:29)
[2021-01-15 04:04] LABS: Kappa\\Lambda Light Chains 2.72 (0.26-1.65); Lambda Light Chain 15.8 mg/L (5.7-26.3)
[2021-01-15 13:34] LABS: Haptoglobin 397 mg/dL (43-212)
[2021-01-16 04:51] LABS: Abnormal Protein Band 1 1.3 g/dL; Albumin 2.4 g/dL (3.8-4.8); Alpha 1 Globulin 0.5 g/dL (0.2-0.3); Alpha 2 Globulin 1.2 g/dL (0.5-0.9); Beta 1 Globulin 0.4 g/dL (0.4-0.6); Gamma Globulin 1.6 g/dL (0.8-1.7); Protein, Total 6.3 g/dL (6.1-8.1)
== END 2021-01-14 15:50 | DRG 641 ==
PROVIDERS: Family Medicine; Internal Medicine Hematology & Oncology; Physician Assistant; Admitting Provider Family Medicine; PCP Internal Medicine; Visit Provider Internal Medicine
DX: E86.0 Dehydration (principal); N39.0 Urinary tract infection, site not specified; C90.00 Multiple myeloma not having achieved remission; E87.8 Other disorders of electrolyte and fluid balance, not elsewhere classified; B96.89 Other specified bacterial agents as the cause of diseases classified elsewhere; Z20.822 Contact with and (suspected) exposure to COVID-19; I49.49 Other premature depolarization; I10 Essential (primary) hypertension; E78.5 Hyperlipidemia, unspecified; E03.9 Hypothyroidism, unspecified; D64.9 Anemia, unspecified; E53.8 Deficiency of other specified B group vitamins; Z28.21 Immunization not carried out because of patient refusal; Z92.3 Personal history of irradiation; Z85.828 Personal history of other malignant neoplasm of skin; Z86.16 Personal history of COVID-19; Z87.891 Personal history of nicotine dependence; Z98.41 Cataract extraction status, right eye; Z98.42 Cataract extraction status, left eye; Z79.899 Other long term (current) drug therapy
CPT/HCPCS: 36415; 36430; 71045; 80048; 81001; 82607; 82728; 82746; 82784; 83010; 83540; 83550; 83615; 83735; 83883; 84155; 84165; 84443; 85014; 85018; 85025; 85027; 86334; 86850; 86880; 86900; 86901; 86920; 87077; 87086; 87088; 87186; 93306; 93970; 96360; 96361; 96372; 97110; 97116; 97161; 97165; A9270; C9803; G0378; G0379; J0696; J3420; J3475; J7030; J7050; P9016; U0003; U0005

== ENCOUNTER 2021-01-23 13:58 | Outpatient (NON) | payer MEDICARE, SELFPAY ==
[2021-01-23 14:13] LABS: Hemoglobin 10.2 g/dL (11.7-13.8); Mean Corpuscular HGB Conc 31.9 g/dL (32.0-36.0); Mean Corpuscular Volume 87.9 fL (78.0-102.0); Mean Platelet Volume 9.2 fl (9.2-11.8); Platelet Count Result 484 K/mm3 (150-420); Red Blood Count 3.64 M/mm3 (4.20-5.40); Red Cell Distribution Width 14.9 % (11.6-14.4); White Blood Count 5.6 K/mm3 (4.8-10.8)
[2021-01-23 14:23] LABS: Alanine Aminotransferase 12 U/L (14-59); Albumin Level 2.7 g/dL (3.4-5.0); Alkaline Phosphatase 78 U/L (46-116); Anion Gap 9 mmol/L (8-16); Aspartate Amino Transferase 48 U/L (15-37); Bilirubin,Total 0.3 mg/dL (0.00-1.00); Blood Urea Nitrogen 14 mg/dL (7-18); Calcium 8.3 mg/dL (8.5-10.1); Carbon Dioxide 27 mmol/L (21-32); Chloride 95 mmol/L (98-108); Estimated Glomerular Filt Rate > 60; Glucose 115 mg/dL (70-99); Magnesium 1.9 mg/dL (1.8-2.4); Osmolality Calculated 273 mOsm/kg (285-295); Potassium 3.8 mmol/L (3.5-5.1); Sodium 131 mmol/L (136-145); Total Protein 7.3 g/dL (6.4-8.2)
[2021-01-23 15:21] LABS: Band Neutrophils Percent 0 % (0-6); Basophils Absolute Manual 0.05 K/mm3 (0-0.1); Basophils Percent Manual 1 % (0-1); Eosinophils Absolute Manual 0.39 K/mm3 (0.02-0.5); Eosinophils Percent Manual 7 % (1-6); Lymphocytes Absolute Manual 1.84 K/mm3 (1.1-4.5); Lymphocytes Percent Manual 33 % (18-44); Monocytes Absolute Manual 1.17 K/mm3 (0.1-0.90); Monocytes Percent Manual 21 % (3-9); Neutrophils Absolute Manual 2.12 K/mm3 (1.7-7.2); Neutrophils Percent Manual 38 % (46-73); Total Cells Counted 100
== END 2021-01-23 13:59 ==
LOC: CHSLAB 14:01
PROVIDERS: PCP Internal Medicine; Visit Provider Internal Medicine Hematology & Oncology
DX: D64.9 Anemia, unspecified (principal); E86.0 Dehydration; C90.00 Multiple myeloma not having achieved remission
CPT/HCPCS: 36415; 80053; 83735; 85025

== ENCOUNTER 2021-01-30 17:30 | Outpatient (NON) | payer MEDICARE, SELFPAY ==
[2021-01-30 17:43] LABS: Basophils Absolute Auto 0.18 K/mm3 (0.00-0.10); Basophils Percent Auto 2.3 % (0.0-1.0); Eosinophils Absolute Auto 0.13 K/mm3 (0.02-0.50); Eosinophils Percent Auto 1.6 % (1.0-6.0); Hematocrit 32.5 % (35.0-42.0); Hemoglobin 10.4 g/dL (11.7-13.8); Immature Granulocyte Absolute 0.05 K/mm3 (0.00-0.00); Immature Granulocyte Percent A 0.6 % (0.0-0.0); Lymphocytes Absolute Auto 2.38 K/mm3 (1.10-4.50); Lymphocytes Percent Auto 29.8 % (18.0-42.0); Mean Corpuscular Hemoglobin 28.2 pg (27.0-31.0); Mean Corpuscular Volume 88.1 fL (78.0-102.0); Mean Platelet Volume 9.1 fl (9.2-11.8); Monocytes Absolute Auto 1.15 K/mm3 (0.10-0.90); Monocytes Percent Auto 14.4 % (2.0-11.0); Neutrophils Absolute Auto 4.1 K/mm3 (1.7-7.2); Neutrophils Percent Auto 51.3 % (50.0-70.0); Platelet Count Result 591 K/mm3 (150-420); Red Blood Count 3.69 M/mm3 (4.20-5.40); Red Cell Distribution Width 15.2 % (11.6-14.4)
[2021-01-30 18:07] LABS: Alanine Aminotransferase 11 U/L (14-59); Albumin Level 2.8 g/dL (3.4-5.0); Alkaline Phosphatase 82 U/L (46-116); Anion Gap 8 mmol/L (8-16); Aspartate Amino Transferase 31 U/L (15-37); Bilirubin,Total 0.3 mg/dL (0.00-1.00); Blood Urea Nitrogen 10 mg/dL (7-18); Calcium 8.6 mg/dL (8.5-10.1); Carbon Dioxide 28 mmol/L (21-32); Chloride 97 mmol/L (98-108); Estimated Glomerular Filt Rate > 60; Glucose 87 mg/dL (70-99); Osmolality Calculated 274 mOsm/kg (285-295); Sodium 133 mmol/L (136-145); Total Protein 7.4 g/dL (6.4-8.2)
[2021-01-30 18:31] LABS: BNP 248 pg/mL (0-100)
[2021-02-02 02:26] LABS: Osmolality, Urine 423 mOsm/kg (50-1200)
== END 2021-01-30 17:31 ==
PROVIDERS: Visit Provider Internal Medicine
DX: E87.1 Hypo-osmolality and hyponatremia (principal); C90.00 Multiple myeloma not having achieved remission; I50.9 Heart failure, unspecified
CPT/HCPCS: 36415; 80053; 83880; 83930; 83935; 85025; 85055

== ENCOUNTER 2021-02-16 11:06 | Outpatient (NON) | payer MEDICARE, SELFPAY ==
[2021-02-16 11:57] LABS: Alanine Aminotransferase 14 U/L (14-59); Albumin Level 2.6 g/dL (3.4-5.0); Alkaline Phosphatase 78 U/L (46-116); Anion Gap 9 mmol/L (8-16); Aspartate Amino Transferase 32 U/L (15-37); Bilirubin,Total 0.4 mg/dL (0.00-1.00); Blood Urea Nitrogen 14 mg/dL (7-18); Calcium 7.6 mg/dL (8.5-10.1); Carbon Dioxide 24 mmol/L (21-32); Chloride 97 mmol/L (98-108); Estimated Glomerular Filt Rate > 60; Glucose 82 mg/dL (70-99); Magnesium 2.4 mg/dL (1.8-2.4); Osmolality Calculated 269 mOsm/kg (285-295); Potassium 4.9 mmol/L (3.5-5.1); Sodium 130 mmol/L (136-145); Total Protein 8.2 g/dL (6.4-8.2)
== END 2021-02-16 11:07 ==
LOC: CHSLAB 11:08
PROVIDERS: Visit Provider Internal Medicine
DX: I10 Essential (primary) hypertension (principal)
CPT/HCPCS: 36415; 80053; 83735

== ENCOUNTER 2021-03-28 08:57 | Outpatient (NON) | payer MEDICARE, SELFPAY ==
[2021-03-28 09:18] LABS: Hematocrit 26.8 % (35.0-42.0); Hemoglobin 8.7 g/dL (11.7-13.8); Mean Corpuscular HGB Conc 32.5 g/dL (32.0-36.0); Mean Corpuscular Hemoglobin 28.5 pg (27.0-31.0); Mean Corpuscular Volume 87.9 fL (78.0-102.0); Mean Platelet Volume 8.9 fl (9.2-11.8); Platelet Count Result 411 K/mm3 (150-420); Red Blood Count 3.05 M/mm3 (4.20-5.40); Red Cell Distribution Width 15.9 % (11.6-14.4); White Blood Count 8.6 K/mm3 (4.8-10.8)
[2021-03-28 09:26] LABS: Alanine Aminotransferase 9 U/L (14-59); Albumin Level 2.3 g/dL (3.4-5.0); Alkaline Phosphatase 64 U/L (46-116); Anion Gap 4 mmol/L (8-16); Aspartate Amino Transferase 28 U/L (15-37); Bilirubin,Total 0.4 mg/dL (0.00-1.00); Blood Urea Nitrogen 18 mg/dL (7-18); Calcium 8.3 mg/dL (8.5-10.1); Carbon Dioxide 27 mmol/L (21-32); Chloride 95 mmol/L (98-108); Estimated Glomerular Filt Rate 56; Glucose 107 mg/dL (70-99); Osmolality Calculated 263 mOsm/kg (285-295); Potassium 4.2 mmol/L (3.5-5.1); Sodium 126 mmol/L (136-145); Total Protein 10.6 g/dL (6.4-8.2)
[2021-03-28 09:46] LABS: Band Neutrophils Percent 1 % (0-6); Eosinophils Absolute Manual 0.08 K/mm3 (0.02-0.5); Eosinophils Percent Manual 1 % (1-6); Lymphocytes Absolute Manual 2.32 K/mm3 (1.1-4.5); Lymphocytes Percent Manual 27 % (18-44); Monocytes Absolute Manual 1.37 K/mm3 (0.1-0.90); Monocytes Percent Manual 16 % (3-9); Neutrophils Absolute Manual 4.81 K/mm3 (1.7-7.2); Neutrophils Percent Manual 55 % (46-73); Total Cells Counted 100
== END 2021-03-28 08:58 | disposition home or self-care (01) ==
LOC: CHSLAB 09:00
PROVIDERS: Visit Provider Internal Medicine
DX: D64.9 Anemia, unspecified (principal); E87.1 Hypo-osmolality and hyponatremia
CPT/HCPCS: 36415; 80053; 85025

== ENCOUNTER 2021-04-12 16:34 | Emergency (ER) | payer MEDICARE, BC, SELFPAY ==
--- NOTE | ~2021-04-12 | XR_ITS ---
EXAMINATION: XR pelvis 1-2V EXAM DATE: 04/12/2021 17:07 INDICATION: Pelvic and lower back pain post fall. TECHNIQUE: Pelvis frontal projection(s) obtained and reviewed. Correlation is made to left hip examin ation 11/01/2020. FINDINGS: There is moderate to severe symmetric bilateral hip primary osteoarthritis. Advanced arthri tis symphysis pubis. There are no acute pelvic fractures or dislocations identified. Sacrum, sacroili ac joints, sacral arcuate lines are intact. There is no subcutaneous gas. The soft tissue is unrema rkable. There are no radiopaque foreign bodies. IMPRESSION: 1. XR pelvis 1-2V exam without acute osseous findings. 2. Moderate to severe hip osteoarthritis. Reviewed, dictated and finalized at location A.
--- NOTE | ~2021-04-12 | XR_ITS ---
EXAMINATION: XR lumbar spine 2-3V EXAM DATE: 04/12/2021 17:07 INDICATION: Pelvic and lower back pain post fall. TECHNIQUE: Lumber spine frontal, lateral, lateral L5-S1 projections for interpretation. Comparison is made to prior examination from 11/01/2020. FINDINGS: There is minimal anterior wedging to the L3 vertebral body on prior study, now there is mil d to moderate anterior wedging, with a fracture line identified vertically through it on the lateral projection, possible extension to the posterior cortex but no widening of the pedicles. There is mode rate to severe lower lumbar, moderate mid lumbar facet arthropathy. Moderate to severe disc disease L 5-S1, moderate at L4-5 and mild to moderate at the levels above. There are cholecystectomy clips. Sac rum, sacroiliac joints, sacral arcuate lines are intact. There is 2 mm anterolisthesis L4 on L5. IMPRESSION: 1. Acute L3 compression or burst fracture with mild to moderate loss of vertebral body heights anter iorly. 2. Advanced lumbar facet arthropathy. Reviewed, dictated and finalized at location A. IMPRESSION: 1. Acute L3 compression or burst fracture with mild to moderate loss of verteb ral body heights anteriorly. 2. Advanced lumbar facet arthropathy.
--- NOTE | ~2021-04-12 | CT_ITS ---
EXAMINATION: CT lumbar spine wo con EXAM DATE: 04/12/2021 18:38 INDICATION: Evaluate fracture low back pain post fall, evaluate acute L3 lumbar fx. History multiple myeloma. TECHNIQUE: Spiral CT lumbar spine was performed without contrast. Axial, coronal and sagittal images of the lumbar spine were reviewed. The dose-length product (DLP) for this examination was 590.81 mGy- cm. The exposure was tailored according to patient size (auto mA exposure control), and iterative re construction (ASIR) was used as additional dose reduction technique. There is no prior study for kaya betancourt. FINDINGS: There is pathological compression fracture of the L3 vertebral body, with large underlying lytic ysabel on, moderate loss of the vertebral body height centrally and on the left side, mild to moderate loss on the right. No evidence of posterior involvement. There are also large osteolytic lesions within L1 and L4. There is severe lower lumbar facet arthropathy. Moderate to severe left neural foraminal becca nosis at L5-S1, moderate at the other neural foramen L3-L5. There is severe central canal stenosis at L3-4. Probably moderate to severe central canal stenosis L4/5 but evidence of prior laminotomies, so me posterior decompression. IMPRESSION: 1. Sizable osteolytic lesions L1, L3 and L4. 2. Pathological compression fracture of L3 without posterior vertebral body involvement or retropuls ion. 3. L3-4 severe central canal stenosis. 4. Severe lower lumbar facet arthropathy. Reviewed, dictated and finalized at location A. IMPRESSION: 1. Sizable osteolytic lesions L1, L3 and L4. 2. Pathological compression fracture of L3 without posterior vertebral body in volvement or retropulsion. 3. L3-4 severe central canal stenosis. 4. Severe lower lumbar facet arthropathy.
[2021-04-12 16:41] VITALS: BP 132/71; PULSE 97; RESP 20; TEMP 36.7; O2SAT 96
[2021-04-12 18:36] VITALS: BP 121/66; PULSE 92; RESP 20; O2SAT 97
[2021-04-12] MEDS: KETOROLAC 30 MG/ML VIAL (*BKC) IV PUSH (19:30)
--- NOTE | 2021-04-12 19:52 | ED.FALL ---
HPI - Fall General Chief Complaint: Fall Stated Complaint: amb Source: patient and family Mode of arrival: ambulatory Limitations: no limitations History of Present Illness HPI Narrative: Patient comes in after a fall on her buttocks at here home (assisted living). She comes in with complaints of hip pain on both sides and back pain. She has been able to ambulate. She has had moderately severe pain, sharp, in her low back since the fall, ongoing since a few minutes prior to arrival, and presently. She has a history of multiple myeloma, and there is concern she has a fracture from the fall. There was no precipitating cause of the fall. Nothing decreased the pain at home. She is brought in because she can barely move. complaint: fall Onset (ago): minute(s) Fall from: standing Place fall occurred: home Loss of consciousness: none Prolonged down time: no Symptoms prior to fall: none Context: tripped/slipped Location of injury: other (low back) Severity: moderate Severity scale (1-10): 6 Quality: stabbing Associated symptoms (after fall): weakness Related Data Home Medications Medication Instructions Recorded Confirmed acetaminophen 500 mg PO Q6H PRN 11/09/20 04/12/21 levothyroxine 75 mcg PO DAILY 11/09/20 04/12/21 simvastatin 10 mg PO HS 11/09/20 04/12/21 Allergies Allergy/AdvReac Type Severity Reaction Status Date / Time No Known Allergies Allergy Unknown Verified 04/12/21 17:09 Review of Systems Constitutional: Constitutional: Reports no additional constitutional complaints Eyes: Eyes: Reports no additional eye complaints ENT: Reports system reviewed and no additional complaints, except as documented Respiratory: Respiratory: Reports no additional respiratory complaints Gastrointestinal: Gastrointestinal: Reports no additional gastrointestinal complaints Genitourinary: Genitourinary: Reports no additional female genitourinary complaints Musculoskeletal: Musculoskeletal: Reports no additional musculoskeletal complaints Integumentary/Breasts: Skin/Breast: Reports system reviewed and no additional complaints, except as docu Neurologic: Reports system reviewed and no additional complaints, except as documented Psychiatric: Psychiatric: Reports no additional psychiatric complaints Endocrine: Endocrine: Reports no additional endocrine complaints Hematologic/Lymphatic: Hematologic/Lymphatic: Reports no additional hematologic/lymphatic complaints Allergic/Immunologic: Allergic/Immunologic: Reports no additional allergic/immunologic complaints PMFSH Past Medical History Medical History Anemia Arthritis COVID-19 (~11/2020) Hypercholesterolemia Hypothyroidism Multiple myeloma Patient of Drs. Ontiveros and Queenie. Skin cancer Surgical History Surgical History History of bilateral cataract extraction History of hemorrhoidectomy History of spinal surgery (~2017) Status post surgical removal of malignant neoplasm of skin Family History Family History Mother Family history of malignant neoplasm Carcinoma of colon Father No problems noted. Sibling Cancer Brother leukemia and another brother with another type of can Dementia 1 brother Social History Social History Social History: The patient is and lives in [place]. She has 3 sons, and her son Asad lives closest and helps her out the most. She drove a school bus for many years. She smoked for several months as a teenager. No alcohol or illicit substance use. Her son Asad is her healthcare power of civil attorney and she is listed as a do not resuscitate. She has 2 cats, Eliot and Dmitry. Smoking packs per day: 1 Smoking cigarettes per day: 20.0 Smoking status: Former smoker Tobacco type: cigarettes Second hand tobacco
[2021-04-12 20:09] VITALS: BP 118/63; PULSE 90; RESP 20; TEMP 36.7; O2SAT 96
== END 2021-04-12 20:14 | disposition home or self-care (01) ==
PROVIDERS: Emergency Provider Emergency Medicine; PCP Internal Medicine
DX: M84.48XA Pathological fracture, other site, initial encounter for fracture (principal); W19.XXXA Unspecified fall, initial encounter; E78.00 Pure hypercholesterolemia, unspecified; E03.9 Hypothyroidism, unspecified; Z87.891 Personal history of nicotine dependence; C90.00 Multiple myeloma not having achieved remission
CPT/HCPCS: 72100; 72131; 72170; 96374; 99283; 99284; J1885

== ENCOUNTER 2021-04-18 18:57 | Inpatient (IN) | payer MEDICARE, BC, SELFPAY ==
--- NOTE | ~2021-04-18 | CT_ITS ---
EXAMINATION: CT lumbar spine wo con DATE: 04/18/2021 19:42 INDICATION: Low back pain, recent lumbar spine compression fracture TECHNIQUE: Computed tomography (CT) of the lumbar spine was performed without intravenous contrast. T he dose-length product (DLP) was 722.95 mGy-cm. Iterative reconstruction was used. COMPARISON: 04/12/2021 FINDINGS: Again seen are lytic lesions involving the right aspect of the L1 vertebral body extending to the pedicle, the anterior and central L3 vertebral body, and the anterior and central L4 vertebral body. There is a stable pathologic compression fracture of L3. No new fracture is identified. There is severe loss of intervertebral disc space height at L4-5 and L5-S1. Bone alignment is normal. A sta ble lytic lesion is noted in the L2 spinous process there is severe central canal stenosis at L3-4 an d moderate central canal stenosis at L4-5. The bladder is distended. IMPRESSION: 1. Unchanged osteolytic lesions, likely relating to history of multiple myeloma, with stable patholog ic fracture of L3. No significant interval change. Reviewed, dictated and finalized at location A. IMPRESSION: 1. Unchanged osteolytic lesions, likely relating to history of multiple myeloma , with stable pathologic fracture of L3. No significant interval change.
--- NOTE | ~2021-04-18 | CT_ITS ---
EXAMINATION: CT brain wo con INDICATION: Increasing weakness and confusion COMPARISON: None TECHNIQUE: Standard unenhanced head CT. The dose-length product (DLP) was 605.33 mGy-cm. The mA was a djusted according to patient size. Iterative reconstruction technique was employed. FINDINGS: There is no acute intraparenchymal hemorrhage. No evidence of mass lesion. No evidence of a cute infarction. There is mild periventricular and subcortical hypodensity probably related to small vessel ischemic disease. There is mild prominence of the sulci and ventricles related to cerebral atr ophy. Intracranial calcified cerebral atherosclerosis is noted. There are no extra-axial collections. There is no mass effect or midline shift. Changes in the globes are likely from ocular lens surgery. The visualized sinuses and mastoid air cells are well aerated. An infiltrative lesion of the left o ccipital bone likely relates to history of multiple myeloma. IMPRESSION: 1. No acute intracranial abnormality. 2. Age related findings. Reviewed, dictated and finalized at location A.
--- NOTE | ~2021-04-18 | CT_ITS ---
EXAMINATION: CT diagnostic chest wo con DATE: 04/18/2021 22:19 INDICATION: Back pain, multiple myeloma TECHNIQUE: Computed tomography (CT) of the chest was performed without intravenous contrast. The dose -length product (DLP) was 162.25 mGy-cm. Automated exposure control and iterative reconstruction tech nique were employed. COMPARISON: 11/23/2020 FINDINGS: Previously described widespread groundglass opacities of the lungs have significantly impro adriana. There are persistent opacities in the distribution of the previously identified lung disease. No new or worsening lung disease is identified. There is no pleural effusion or pneumothorax. Cardiomeg renate is noted. There is a stable 9 mm nodule of the right middle lobe. There are no pathologically enl arged thoracic lymph nodes. There is calcified coronary artery atherosclerosis. Punctate calcificatio ns in an otherwise normal spleen likely represent healed granulomatous disease. The gallbladder is calvo rgically absent. Lytic lesions of the T3, T4, T6, and L1 vertebral bodies are stable.. IMPRESSION: 1. Diffuse lung disease with interval improvement, likely sequela of prior pneumonia. 2. Stable lytic lesions of the thoracic and upper lumbar spine, consistent with history of multiple m yeloma. Reviewed, dictated and finalized at location A. IMPRESSION: 1. Diffuse lung disease with interval improvement, likely sequela of prior pneu monia. 2. Stable lytic lesions of the thoracic and upper lumbar spine, consistent with history of multiple myeloma.
[2021-04-18 19:00] VITALS: BP 126/67; PULSE 80; RESP 18; TEMP 37.6; O2SAT 95
[2021-04-18] MEDS: KETOROLAC 30 MG/ML VIAL (*BKC) IM (19:45)
[2021-04-18 20:02] LABS: Basophils Absolute Auto 0.02 K/mm3 (0.00-0.10); Basophils Percent Auto 0.3 % (0.0-1.0); Hematocrit 22.4 % (35.0-42.0); Hemoglobin 7.3 g/dL (11.7-13.8); Immature Granulocyte Percent A 1.5 % (0.0-0.0); Lymphocytes Absolute Auto 1.13 K/mm3 (1.10-4.50); Mean Corpuscular HGB Conc 32.6 g/dL (32.0-36.0); Mean Corpuscular Hemoglobin 29.1 pg (27.0-31.0); Mean Corpuscular Volume 89.2 fL (78.0-102.0); Mean Platelet Volume 8.6 fl (9.2-11.8); Monocytes Absolute Auto 0.87 K/mm3 (0.10-0.90); Monocytes Percent Auto 13.1 % (2.0-11.0); Neutrophils Absolute Auto 4.5 K/mm3 (1.7-7.2); Neutrophils Percent Auto 68.1 % (50.0-70.0); Platelet Count Result 353 K/mm3 (150-420); Red Blood Count 2.51 M/mm3 (4.20-5.40); Red Cell Distribution Width 15.2 % (11.6-14.4); White Blood Count 6.7 K/mm3 (4.8-10.8)
[2021-04-18 20:03] LABS: Add Urine Microscopic? YES; Appearance Urine Clear (Clear); Bilirubin Urine Negative (Negative); Blood Urine 2+ (Negative); Color Urine Yellow (Yellow); Glucose Urine UA Negative (Negative); Ketones Urine Negative (Negative); Leukocyte Esterase Ur 1+ (Negative); Nitrate Urine Negative (Negative); Protein Urine Trace (Negative)
[2021-04-18 20:10] LABS: Amorphous Sediment Urine Heavy
[2021-04-18 20:11] LABS: Bacteria Urine 1+ /hpf
[2021-04-18] MEDS: SODIUM CHLORIDE 0.9% IV 1,000 ML 500 ML IV CONT (20:12)
[2021-04-18 20:22] LABS: Lactic Acid Reflex 0.9 mmol/L (0.4-2.0)
[2021-04-18 20:24] VITALS: BP 103/64; PULSE 96; RESP 18; TEMP 37.1; O2SAT 96
[2021-04-18 20:30] LABS: Alanine Aminotransferase 9 U/L (14-59); Albumin Level 1.9 g/dL (3.4-5.0); Alkaline Phosphatase 64 U/L (46-116); Anion Gap 5 mmol/L (8-16); Aspartate Amino Transferase 26 U/L (15-37); Bilirubin,Total 0.6 mg/dL (0.00-1.00); Blood Urea Nitrogen 22 mg/dL (7-18); Calcium 8.7 mg/dL (8.5-10.1); Carbon Dioxide 24 mmol/L (21-32); Chloride 92 mmol/L (98-108); Estimated CRCL calculation 24 ml/min; Estimated Glomerular Filt Rate 39; Glucose 124 mg/dL (70-99); Osmolality Calculated 256 mOsm/kg (285-295); Potassium 4.5 mmol/L (3.5-5.1); Sodium 121 mmol/L (136-145)
[2021-04-18 20:32] LABS: Total Protein > 12.0 g/dL (6.4-8.2)
[2021-04-18 21:00] VITALS: TEMP 37.1
--- NOTE | 2021-04-18 21:41 | ED.BACK ---
HPI - Back Pain/Injury General Chief Complaint: Back Pain/Injury Stated Complaint: AMB Time Seen by Provider: 04/18/21 19:10 Source: patient and family Mode of arrival: ambulatory Limitations: no limitations History of Present Illness HPI Narrative: Patient comes in with back pain from assisted living. Pain has been moderately severe to severe and ongoing for te last several days. She has gotten pain pills for this which has helped some at the assisted living facility. She was diagnosed in the past with multiple myeloma. I saw her here on 04/12 with back pain after a fall. At that time she had developed a compression fracture, this was at least partially caused by the multiple myeloma, causing a weak spot. She comes in now, with similar severe, ongoing sharp back pain. It is unclear how much narcotic she has gotten. No other clear associated signs or symptoms. Suspicion is high her pain is related to the previous known compression fracture. She has had malaise, and has not felt well, besides the back pain MD elicited complaint: back pain and back injury Pertinent past history: prior back pain and recent trauma Onset (ago): day(s) Timing: constant (all most always constant) Severity: similar to previous episodes Quality: sharp Location: lumbar spine Exacerbating factors: movement Relieving factors: immobilization Context: fall Associated symptoms: weakness and fatigue Treatments prior to arrival: prescription analgesics Related Data Home Medications Medication Instructions Recorded Confirmed acetaminophen 500 mg PO Q6H PRN 11/09/20 04/18/21 levothyroxine 75 mcg PO DAILY 11/09/20 04/18/21 simvastatin 10 mg PO HS 11/09/20 04/18/21 Allergies Allergy/AdvReac Type Severity Reaction Status Date / Time No Known Allergies Allergy Unknown Verified 04/12/21 17:09 Review of Systems Constitutional: Constitutional: Reports no additional constitutional complaints Eyes: Eyes: Reports no additional eye complaints ENT: Reports system reviewed and no additional complaints, except as documented Cardiovascular: Cardiovascular: Reports no additional cardiovascular complaints Respiratory: Respiratory: Reports no additional respiratory complaints Gastrointestinal: Gastrointestinal: Reports no additional gastrointestinal complaints Genitourinary: Genitourinary: Reports no additional female genitourinary complaints Musculoskeletal: Musculoskeletal: Reports no additional musculoskeletal complaints Integumentary/Breasts: Skin/Breast: Reports system reviewed and no additional complaints, except as docu Neurologic: Reports system reviewed and no additional complaints, except as documented Psychiatric: Psychiatric: Reports no additional psychiatric complaints Endocrine: Endocrine: Reports no additional endocrine complaints Hematologic/Lymphatic: Hematologic/Lymphatic: Reports no additional hematologic/lymphatic complaints Allergic/Immunologic: Allergic/Immunologic: Reports no additional allergic/immunologic complaints REPLACED BY [facility] Past Medical History Medical History Anemia Arthritis COVID-19 (~11/2020) Hypercholesterolemia Hypothyroidism Multiple myeloma Patient of Drs. Ontiveros and Queenie. Skin cancer Surgical History Surgical History History of bilateral cataract extraction History of hemorrhoidectomy History of spinal surgery (~2017) Status post surgical removal of malignant neoplasm of skin Family History Family History Mother Family history of malignant neoplasm Carcinoma of colon Father No problems noted. Sibling Cancer Brother leukemia and another brother with another type of can Dementia 1 brother Social History Social History Social History: The patient is and lives in [place]. She
[2021-04-18] MEDS: SODIUM CHLORIDE 0.9% IV 1,000 ML 125 ML IV CONT (21:45)
[2021-04-18] MEDS: HYDROcodone/acetaminophen (*CRX) 5-325 MG TABLET 1 TAB PO (21:46)
[2021-04-18 21:57] VITALS: BP 131/70; PULSE 87; RESP 20; TEMP 37.1; O2SAT 95
[2021-04-18] MEDS: PHARMACIST COMMUNICATION ORDER 1 EACH XX (22:26)
--- NOTE | 2021-04-18 23:19 | ADMGEN ---
This patient, Beverly Linares, was admitted to 2nd Floor Room 201-1. Patient oriented to hospital policies and general routines including ID bracelet, bed and alarms, visiting hours, pain management, procedures, bathroom and other care routines, personal items, smoking policy, room service/diet, and visiting hours. Information on how to activate the Rapid Response Team has been discussed. Patient are encouraged to report perceived risks to care and to ask questions if they do not understand what they are told or what they should do.
[2021-04-18 23:20] VITALS: BP 102/54; PULSE 70; RESP 20; TEMP 36.1; O2SAT 98
--- NOTE | 2021-04-18 23:20 | PC.NURSE ---
While patient was pivoting from ER stretcher to bed her saline lock to left hand came out(with catheter intact). Patient in no distress. Dressing applied to area.
[2021-04-18 23:22] VITALS: BMI 18.1
[2021-04-19] VITALS (14 sets, daily range): BP systolic 103–138; BP diastolic 52–79; PULSE 61–88; RESP 14–18; TEMP 35.6–38.4; O2SAT 97–100
--- NOTE | 2021-04-19 01:10 | PC.NURSE ---
#22 gauge IV catheter started to the left wrist. IV fluid infusing as ordered.
[2021-04-19] MEDS: LEVOTHYROXINE SODIUM 75 MCG TABLET PO (06:03)
[2021-04-19 06:23] LABS: Basophils Absolute Auto 0.01 K/mm3 (0.00-0.10); Basophils Percent Auto 0.2 % (0.0-1.0); Eosinophils Absolute Auto 0.02 K/mm3 (0.02-0.50); Eosinophils Percent Auto 0.4 % (1.0-6.0); Hematocrit 20.7 % (35.0-42.0); Immature Granulocyte Absolute 0.07 K/mm3 (0.00-0.00); Immature Granulocyte Percent A 1.5 % (0.0-0.0); Lymphocytes Absolute Auto 1.39 K/mm3 (1.10-4.50); Lymphocytes Percent Auto 29.1 % (18.0-42.0); Mean Corpuscular HGB Conc 30.9 g/dL (32.0-36.0); Mean Corpuscular Hemoglobin 28.3 pg (27.0-31.0); Mean Corpuscular Volume 91.6 fL (78.0-102.0); Mean Platelet Volume 8.8 fl (9.2-11.8); Monocytes Absolute Auto 0.69 K/mm3 (0.10-0.90); Monocytes Percent Auto 14.5 % (2.0-11.0); Neutrophils Absolute Auto 2.6 K/mm3 (1.7-7.2); Neutrophils Percent Auto 54.3 % (50.0-70.0); Platelet Count Result 294 K/mm3 (150-420); Red Blood Count 2.26 M/mm3 (4.20-5.40); Red Cell Distribution Width 15.6 % (11.6-14.4); White Blood Count 4.8 K/mm3 (4.8-10.8)
[2021-04-19 06:28] LABS: Hemoglobin 6.4 g/dL (11.7-13.8)
[2021-04-19] MEDS: SODIUM CHLORIDE 0.9% IV 1,000 ML 125 ML IV CONT ×2 (06:38→18:53)
[2021-04-19 07:01] LABS: Alanine Aminotransferase 7 U/L (14-59); Albumin Level 1.5 g/dL (3.4-5.0); Alkaline Phosphatase 52 U/L (46-116); Anion Gap 5 mmol/L (8-16); Aspartate Amino Transferase 21 U/L (15-37); Bilirubin,Total 0.4 mg/dL (0.00-1.00); Blood Urea Nitrogen 23 mg/dL (7-18); Carbon Dioxide 23 mmol/L (21-32); Chloride 98 mmol/L (98-108); Estimated CRCL calculation 21 ml/min; Estimated Glomerular Filt Rate 38; Glucose 88 mg/dL (70-99); Osmolality Calculated 264 mOsm/kg (285-295); Potassium 4.2 mmol/L (3.5-5.1); Sodium 126 mmol/L (136-145); Total Protein 9.9 g/dL (6.4-8.2)
--- NOTE | 2021-04-19 08:32 | ECG_ITS ---
Measurements Intervals Williams Rate: 67 P: 58 MS: 135 QRS: -22 QRSD: 134 T: 38 QT: 452 QTc: 479 Interpretive Statements SINUS RHYTHM ATRIAL PREMATURE COMPLEX RIGHT BUNDLE BRANCH BLOCK BASELINE ARTIFACT- AVR, AVF ABNORMAL ECG Electronically Signed On 04-19-2021 12:37:22 CDT by Hiram Fernandez D.O.
[2021-04-19 08:52] LABS: INR 1.2; Partial Thromboplastin Time 34.3 SEC (23.90-30.70); Prothrombin Time 12.6 Seconds (9.50-12.10)
[2021-04-19] MEDS: amLODIPine BESYLATE 5 MG TABLET PO (08:52)
[2021-04-19] MEDS: CYANOCOBALAMIN 1,000 MCG TABLET 1000 MCG PO (08:52)
[2021-04-19] MEDS: LIDOCAINE 5% PATCH 1 PATCH TRANSDERM (08:53)
[2021-04-19] MEDS: SODIUM CHLORIDE 0.9% IV 250 ML 30 ML IV CONT (09:55)
[2021-04-19] MEDS: DOCUSATE SODIUM 100 MG CAPSULE PO (10:04)
[2021-04-19 11:07] LABS: Occult Blood Negative (Negative)
--- NOTE | 2021-04-19 11:48 | PM.IMHP ---
H&P: HPI History of Present Illness Date/Time: 04/19/21 11:48 this is a 85-year-old female that presented to urgent care with uncontrolled chronic pain. Patient has a past medical history of anemia, arthritis, COVID-19, hyper cholesterolemia, hypothyroidism and multiple myeloma. Patient is alert and orientated x4 according to patient she is here for urinary tract infection. She does not complain of any signs and symptoms previous to admission. According to ED notes patient has been experiencing monitor severe uncontrollable pain while at her assisted living facility and was brought to our ED by a family member on admission patient's WBC 6.7, hemoglobin 7.3, hematocrit 22.4, platelets 353, sodium 121, potassium 4.5, BUN 22, creatinine 1.29, glucose 124, lactic acid 0.9, urine positive for protein leukocytes, RBCs, WBCs and bacteria. Imaging unremarkable. patient being admitted for pyelonephritis, hyponatremia and intractable pain. Patient inpatient Time spent 60 minutes <SHARATH Cruz - Last Filed: 04/19/21 12:32> Chief Complaint: Intractable pain <SHARATH Cruz - Last Filed: 04/19/21 12:32> Review of Systems Review of Systems: Narrative: A 14 organ system Review of Systems was performed and pertinent positives included in the HPI, otherwise remaining ROS is negative. <SHARATH Cruz - Last Filed: 04/19/21 12:32> [facility] Past Medical History Medical History: Medical History Anemia Arthritis COVID-19 (~11/2020) Hypercholesterolemia Hypothyroidism Multiple myeloma Patient of Drs. Ontiveros and Queenie. Skin cancer <SHARATH Cruz - Last Filed: 04/19/21 12:32> Surgical History Surgical History: Surgical History History of bilateral cataract extraction History of hemorrhoidectomy History of spinal surgery (~2016) Status post surgical removal of malignant neoplasm of skin <SHARATH Cruz - Last Filed: 04/19/21 12:32> Family History Family History: Family History Mother Family history of malignant neoplasm Carcinoma of colon Father No problems noted. Sibling Cancer Brother leukemia and another brother with another type of can Dementia 1 brother <Gloria WalterSHARATH - Last Filed: 04/19/21 12:32> Social History Social History: Social History Social History: The patient is and lives in [place]. She has 3 sons, and her son Asad lives closest and helps her out the most. She drove a school bus for many years. She smoked for several months as a teenager. No alcohol or illicit substance use. Her son Asad is her healthcare power of trust and estates attorney and she is listed as a do not resuscitate. She has 2 cats, Eliot and Dmitry. Smoking packs per day: 1 Smoking cigarettes per day: 20.0 Smoking status: Former smoker Tobacco type: cigarettes Second hand tobacco smoke exposure: No Smoking end date: [birth year]02/1955 Additional smoking assessment comments: Smoked for 6 months when she was 15. Alcohol intake: never Substance use: never Substance use type: does not use Gender identity (if verbalized by the patient): Female Sexual Orientation (if Verbalized by the Patient): Straight or Heterosexual Spiritual care concerns: No <Gloria WalterSHARATH - Last Filed: 04/19/21 12:32> Meds Home Medications and Allergies Home medications: Home Medications Medication Instructions Recorded Confirmed Type acetaminophen 500 mg PO Q6H PRN 11/09/20 04/18/21 History levothyroxine 75 mcg PO DAILY 11/09/20 04/18/21 History simvastatin 10 mg PO HS 11/09/20 04/18/21 History albuterol sulfate [Proventil HFA] 2 puff INHALATION QIDRT PRN #1 g 12/05/20 04/18/21 Rx amlodipine [Norvasc] 5 mg PO QAM #30 tablet 12/05/20 04/18/21 Rx lido
[2021-04-19 13:37] LABS: Hematocrit 23.5 % (35.0-42.0); Hemoglobin 7.8 g/dL (11.7-13.8)
--- NOTE | 2021-04-19 19:00 | PC.NURSE ---
CHARGE NURSE MADE AWARE OF TEMP 101.1 1HR POST BLOOD TRANSFUSION. APAP GIVEN, SEE MAR.
[2021-04-19] MEDS: ACETAMINOPHEN 500 MG TABLET PO (19:02)
--- NOTE | 2021-04-19 19:15 | PC.NURSE ---
notified that patient is s/p blood transfusion and is currently running a 101.1 temp. to put in orders.
[2021-04-19 20:44] LABS: Hematocrit 27.2 % (35.0-42.0); Hemoglobin 9.1 g/dL (11.7-13.8)
[2021-04-19] MEDS: SENNA/DOCUSATE SODIUM TABLET 1 TAB PO (21:31)
[2021-04-19] MEDS: oxyCODONE HCL (*CRX) 10 MG TAB SR 12HR PO (21:31)
[2021-04-19] MEDS: PANTOPRAZOLE SODIUM IV 40 MG VIAL IV PUSH (21:31)
--- NOTE | 2021-04-19 21:35 | PC.NURSE ---
New orders for blood cultures. Lab here to obtain blood cultures. Start Vancomycin.
[2021-04-20] VITALS: BP 107/58; PULSE 70; RESP 18; TEMP 36.6; O2SAT 97
[2021-04-20] MEDS: SODIUM CHLORIDE 0.9% IV 1,000 ML 125 ML IV CONT ×4 (01:35→18:49)
[2021-04-20] MEDS: LEVOTHYROXINE SODIUM 75 MCG TABLET PO (06:10)
[2021-04-20 06:16] LABS: Hemoglobin 9.5 g/dL (11.7-13.8); Mean Corpuscular HGB Conc 32.8 g/dL (32.0-36.0); Mean Corpuscular Hemoglobin 28.9 pg (27.0-31.0); Mean Corpuscular Volume 88.1 fL (78.0-102.0); Platelet Count Result 307 K/mm3 (150-420); Red Blood Count 3.29 M/mm3 (4.20-5.40); Red Cell Distribution Width 15.3 % (11.6-14.4); White Blood Count 7.1 K/mm3 (4.8-10.8)
[2021-04-20 06:23] LABS: Alanine Aminotransferase 7 U/L (14-59); Albumin Level 1.6 g/dL (3.4-5.0); Alkaline Phosphatase 59 U/L (46-116); Anion Gap 7 mmol/L (8-16); Aspartate Amino Transferase 22 U/L (15-37); Bilirubin,Total 0.6 mg/dL (0.00-1.00); Blood Urea Nitrogen 13 mg/dL (7-18); Carbon Dioxide 22 mmol/L (21-32); Chloride 96 mmol/L (98-108); Estimated CRCL calculation 24 ml/min; Estimated Glomerular Filt Rate 44; Glucose 100 mg/dL (70-99); Osmolality Calculated 260 mOsm/kg (285-295); Potassium 4.2 mmol/L (3.5-5.1); Sodium 125 mmol/L (136-145); Total Protein 10.9 g/dL (6.4-8.2)
--- NOTE | 2021-04-20 07:37 | P.PN_ITS ---
Progress Note: A&P Assessment and Plan (1) Low back pain: Qualifiers: Back pain laterality: midline Chronicity: acute Sciatica presence: without sciatica Qualified Code(s): M54.5 - Low back pain Code(s): M54.5 - Low back pain Status: Acute Assessment and Plan: * Patient with a history of L3 fractures status post fall * Will adjust patient's pain medication. Once her blood pressure is more stabilized I will start a long-acting pain medication with breakthrough * Imaging unremarkable * Started oxycodone 10 mg every 12 hours according to patient this is not effective will increase to 20 mg every 12 hours (2) Multiple myeloma: Qualifiers: Multiple myeloma remission status: not in remission Qualified Code(s): C90.00 - Multiple myeloma not having achieved remission Code(s): C90.00 - Multiple myeloma not having achieved remission Status: Chronic Assessment and Plan: * Patient followed by Dr. Ontiveros * On a maintenance treatment of Revlimid with a history of palliative radiation therapy to the bone (3) Anemia: Code(s): D64.9 - Anemia, unspecified Status: Chronic Assessment and Plan: * Possibly secondary to multiple myeloma * Patient hemoglobin 7.3>6.4 >7.8>9.1>9.5 * 2 units of PRBCs infusing * Occult blood neg * Patient baseline hemoglobin appears to be 9-10 * Patient denies any hematemesis or melena * We will closely monitor hemoglobin hematocrit * Anemia work-up indicate vitamin B12 deficiency, iron studies consistent with anemia of chronic disease * Patient does receive B12 injections * Occult blood negative * cont PPI and iron supplements (4) Electrolyte abnormality: Code(s): E87.8 - Other disorders of electrolyte and fluid balance, not elsewhere classified Status: Acute Assessment and Plan: * Possibly secondary to dehydration and malignancy * Sodium 121>126>125 * Continue IV hydration and sodium supplements * CMP in a.m. (5) Dehydration: Code(s): E86.0 - Dehydration Status: Acute Assessment and Plan: * Continue IV fluids (6) Hypothyroidism: Qualifiers: Hypothyroidism type: unspecified Qualified Code(s): E03.9 - Hypothyroidism, unspecified Code(s): E03.9 - Hypothyroidism, unspecified Status: Chronic Assessment and Plan: * Continue Synthroid 75 mcg daily (7) Acute pyelonephritis: Code(s): N10 - Acute pyelonephritis Status: Acute Assessment and Plan: * As evidence by UA with protein, leukocytes, RBCs and bacteria * UA culture pending * Zosyn started in the ED continue use of Zosyn added vancomycin due to spike in temperature * WBCs within normal limits afebrile * Lactic acid within normal limit (8) Acute kidney injury: Code(s): N17.9 - Acute kidney failure, unspecified Status: Acute Assessment and Plan: * Possibly secondary to pyelonephritis versus dehydration * Creatinine 1.29 >1.34 >1.16 baseline appears to be 0.80 * Will avoid nephrotoxic agent * Renal dose medication Review of Systems Review of Systems: Narrative: A 14 organ system Review of Systems was performed and pertinent positives included in the HPI, otherwise remaining ROS is negative. Exam Narrative: Exam Narrative: GENERAL: This is a well-nourished, well-developed patient, in no apparent distress. HEAD: normocephalic, atraumatic. EYES: PERRL. Sclera clear/white. Vision is grossly intact. EARS: External ears normal, auditory canals c
--- NOTE | 2021-04-20 07:37 | WPDPN ---
Progress Note: A&P Assessment and Plan (1) Low back pain: Qualifiers: Back pain laterality: midline Chronicity: acute Sciatica presence: without sciatica Qualified Code(s): M54.5 - Low back pain Code(s): M54.5 - Low back pain Status: Acute Assessment and Plan: Patient with a history of L3 fractures status post fall Will adjust patient's pain medication. Once her blood pressure is more stabilized I will start a long-acting pain medication with breakthrough Imaging unremarkable Started oxycodone 10 mg every 12 hours according to patient this is not effective will increase to 20 mg every 12 hours (2) Multiple myeloma: Qualifiers: Multiple myeloma remission status: not in remission Qualified Code(s): C90.00 - Multiple myeloma not having achieved remission Code(s): C90.00 - Multiple myeloma not having achieved remission Status: Chronic Assessment and Plan: Patient followed by Dr. Ontiveros On a maintenance treatment of Revlimid with a history of palliative radiation therapy to the bone (3) Anemia: Code(s): D64.9 - Anemia, unspecified Status: Chronic Assessment and Plan: Possibly secondary to multiple myeloma Patient hemoglobin 7.3>6.4 >7.8>9.1>9.5 2 units of PRBCs infusing Occult blood neg Patient baseline hemoglobin appears to be 9-10 Patient denies any hematemesis or melena We will closely monitor hemoglobin hematocrit Anemia work-up indicate vitamin B12 deficiency, iron studies consistent with anemia of chronic disease Patient does receive B12 injections Occult blood negative cont PPI and iron supplements (4) Electrolyte abnormality: Code(s): E87.8 - Other disorders of electrolyte and fluid balance, not elsewhere classified Status: Acute Assessment and Plan: Possibly secondary to dehydration and malignancy Sodium 121>126>125 Continue IV hydration and sodium supplements CMP in a.m. (5) Dehydration: Code(s): E86.0 - Dehydration Status: Acute Assessment and Plan: Continue IV fluids (6) Hypothyroidism: Qualifiers: Hypothyroidism type: unspecified Qualified Code(s): E03.9 - Hypothyroidism, unspecified Code(s): E03.9 - Hypothyroidism, unspecified Status: Chronic Assessment and Plan: Continue Synthroid 75 mcg daily (7) Acute pyelonephritis: Code(s): N10 - Acute pyelonephritis Status: Acute Assessment and Plan: As evidence by UA with protein, leukocytes, RBCs and bacteria UA culture pending Zosyn started in the ED continue use of Zosyn added vancomycin due to spike in temperature WBCs within normal limits afebrile Lactic acid within normal limit (8) Acute kidney injury: Code(s): N17.9 - Acute kidney failure, unspecified Status: Acute Assessment and Plan: Possibly secondary to pyelonephritis versus dehydration Creatinine 1.29 >1.34 >1.16 baseline appears to be 0.80 Will avoid nephrotoxic agent Renal dose medication Review of Systems Review of Systems: Narrative: A 14 organ system Review of Systems was performed and pertinent positives included in the HPI, otherwise remaining ROS is negative. Exam Narrative: Exam Narrative: GENERAL: This is a well-nourished, well-developed patient, in no apparent distress. HEAD: normocephalic, atraumatic. EYES: PERRL. Sclera clear/white. Vision is grossly intact. EARS: External ears normal, auditory canals clear and without drainage, TMs normal without perforation. Hearing grossly intact. NOSE: External nose normal with no obvious nasal discharge, nares without redness, no rhinorrhea. THROAT: Mucous membranes moist, posterior pharynx clear. NECK: Neck supple, non-tender without lymphadenopathy, masses or thyromegaly. CARDIOVASCULAR: Regular rate and rhythm without murmurs, gallops, or rubs. RESPIRATORY: Clear to auscultation. Breath sounds equal bilaterally. No wheeze
[2021-04-20 08:00] VITALS: BP 114/71; PULSE 88; RESP 20; TEMP 37.7; O2SAT 97
[2021-04-20] MEDS: LIDOCAINE 5% PATCH 1 PATCH TRANSDERM (08:59)
[2021-04-20] MEDS: polyethylene glycoL 3350 17 GM POWD.PACK PO (08:59)
[2021-04-20] MEDS: DOCUSATE SODIUM 100 MG CAPSULE PO (08:59)
[2021-04-20] MEDS: PANTOPRAZOLE SOD SESQUIHYDRATE 20 MG TAB PO (09:00)
[2021-04-20] MEDS: CYANOCOBALAMIN 1,000 MCG TABLET 1000 MCG PO (09:00)
[2021-04-20] MEDS: amLODIPine BESYLATE 5 MG TABLET PO (09:00)
[2021-04-20] MEDS: oxyCODONE HCL (*CRX) 10 MG TAB SR 12HR PO (09:00)
[2021-04-20] MEDS: SODIUM CHLORIDE 1 GM TABLET PO ×2 (10:19→17:02)
[2021-04-20] MEDS: ACETAMINOPHEN 325 MG TABLET 650 MG PO ×2 (12:14→17:02)
[2021-04-20 14:05] LABS: Bilirubin Direct 0.3 mg/dL (0-0.2)
[2021-04-20 16:00] VITALS: BP 105/57; PULSE 69; RESP 16; TEMP 36.4; O2SAT 95
[2021-04-20] MEDS: oxyCODONE HCL (*CRX) 20 MG TAB SR 12HR PO (20:21)
[2021-04-20] MEDS: SENNA/DOCUSATE SODIUM TABLET 1 TAB PO (20:21)
[2021-04-21] VITALS: BP 109/57; PULSE 60; RESP 14; TEMP 36.4; O2SAT 94
[2021-04-21 05:45] LABS: Hematocrit 25.3 % (35.0-42.0); Hemoglobin 8.1 g/dL (11.7-13.8); Mean Corpuscular Hemoglobin 28.8 pg (27.0-31.0); Mean Platelet Volume 9.2 fl (9.2-11.8); Platelet Count Result 225 K/mm3 (150-420); Red Blood Count 2.81 M/mm3 (4.20-5.40); Red Cell Distribution Width 15.4 % (11.6-14.4); White Blood Count 5.1 K/mm3 (4.8-10.8)
[2021-04-21 06:07] LABS: Alanine Aminotransferase 12 U/L (14-59); Albumin Level 1.3 g/dL (3.4-5.0); Alkaline Phosphatase 80 U/L (46-116); Anion Gap 6 mmol/L (8-16); Aspartate Amino Transferase 30 U/L (15-37); Bilirubin,Total 0.4 mg/dL (0.00-1.00); Blood Urea Nitrogen 9 mg/dL (7-18); Calcium 7.9 mg/dL (8.5-10.1); Carbon Dioxide 22 mmol/L (21-32); Chloride 100 mmol/L (98-108); Estimated CRCL calculation 27 ml/min; Estimated Glomerular Filt Rate 51; Glucose 76 mg/dL (70-99); Magnesium 1.9 mg/dL (1.8-2.4); Osmolality Calculated 263 mOsm/kg (285-295); Potassium 3.5 mmol/L (3.5-5.1); Sodium 128 mmol/L (136-145); Total Protein 9.3 g/dL (6.4-8.2)
[2021-04-21 08:00] VITALS: BP 138/71; PULSE 75; RESP 16; TEMP 36.9; O2SAT 97
[2021-04-21] MEDS: ACETAMINOPHEN 325 MG TABLET 650 MG PO ×2 (09:56→12:54)
[2021-04-21] MEDS: SODIUM CHLORIDE 1 GM TABLET PO (09:56)
[2021-04-21] MEDS: DOCUSATE SODIUM 100 MG CAPSULE PO (09:56)
[2021-04-21] MEDS: amLODIPine BESYLATE 5 MG TABLET PO (09:56)
[2021-04-21] MEDS: LEVOTHYROXINE SODIUM 75 MCG TABLET PO (09:56)
[2021-04-21] MEDS: CYANOCOBALAMIN 1,000 MCG TABLET 1000 MCG PO (09:56)
[2021-04-21] MEDS: polyethylene glycoL 3350 17 GM POWD.PACK PO (09:56)
[2021-04-21] MEDS: oxyCODONE HCL (*CRX) 20 MG TAB SR 12HR PO (09:56)
[2021-04-21] MEDS: LIDOCAINE 5% PATCH 2 PATCH TRANSDERM (09:57)
[2021-04-21] MEDS: PANTOPRAZOLE SOD SESQUIHYDRATE 20 MG TAB PO (09:57)
--- NOTE | 2021-04-21 10:45 | P.DS_ITS ---
DS: Admitting Diagnosis Admitting Diagnosis Admitting Diagnosis: Intractable pain, anemia, pyelonephritis DS: Discharge Diagnosis Discharge Diagnosis (1) Low back pain: Qualifiers: Back pain laterality: midline Chronicity: acute Sciatica presence: without sciatica Qualified Code(s): M54.5 - Low back pain Code(s): M54.5 - Low back pain Status: Acute Assessment and Plan: * Patient with a history of L3 fractures status post fall * Will adjust patient's pain medication. Once her blood pressure is more stabilized I will start a long-acting pain medication with breakthrough * Imaging unremarkable * Continue oxycodone 20 mg every 12 hours for breakthrough (2) Multiple myeloma: Qualifiers: Multiple myeloma remission status: not in remission Qualified Code(s): C90.00 - Multiple myeloma not having achieved remission Code(s): C90.00 - Multiple myeloma not having achieved remission Status: Chronic Assessment and Plan: * Patient followed by Dr. Ontiveros * On a maintenance treatment of Revlimid with a history of palliative radiation therapy to the bone (3) Anemia: Code(s): D64.9 - Anemia, unspecified Status: Chronic Assessment and Plan: * Possibly secondary to multiple myeloma * Patient hemoglobin 7.3>6.4 >7.8>9.1>9.5>8.1 * 2 units of PRBCs infusing * Occult blood neg * Patient baseline hemoglobin appears to be 9-10 * Patient denies any hematemesis or melena * Anemia work-up indicate vitamin B12 deficiency, iron studies consistent with anemia of chronic disease * Patient does receive B12 injections * Occult blood negative * cont PPI and iron supplements (4) Electrolyte abnormality: Code(s): E87.8 - Other disorders of electrolyte and fluid balance, not elsewhere classified Status: Acute Assessment and Plan: * Possibly secondary to dehydration and malignancy * Sodium 121>126>125>128 * Patient with chronic hyponatremia baseline appears to be between 129 and 132 * Continue IV hydration and sodium supplements * (5) Dehydration: Code(s): E86.0 - Dehydration Status: Acute Assessment and Plan: * Continue IV fluids (6) Hypothyroidism: Qualifiers: Hypothyroidism type: unspecified Qualified Code(s): E03.9 - Hypothyroidism, unspecified Code(s): E03.9 - Hypothyroidism, unspecified Status: Chronic Assessment and Plan: * Continue Synthroid 75 mcg daily (7) Acute pyelonephritis: Code(s): N10 - Acute pyelonephritis Status: Acute Assessment and Plan: * As evidence by UA with protein, leukocytes, RBCs and bacteria * UA culture preliminary no growth * Zosyn started in the ED continue use of Zosyn added vancomycin due to spike in temperature * WBCs within normal limits afebrile * Lactic acid within normal limit (8) Acute kidney injury: Code(s): N17.9 - Acute kidney failure, unspecified Status: Acute Assessment and Plan: * Possibly secondary to pyelonephritis versus dehydration * Creatinine 1.29 >1.34 >1.16 >1.03 baseline appears to be 0.80 * Will avoid nephrotoxic agent * Renal dose medication DS: Summary Hospital Course Hospital Course: this is a 85-year-old female that presented to urgent care with uncontrolled chronic pain. Patient has a past medical history of anemia, arthritis, COVID-19, hyper cholesterolemia, hypothyroidism and multiple myeloma. Patient was admitted for pain control and pyelo. During this admission her hemoglobin dropped from 7-6 she was infuse
--- NOTE | 2021-04-21 10:45 | PM.DS ---
DS: Admitting Diagnosis Admitting Diagnosis Admitting Diagnosis: Intractable pain, anemia, pyelonephritis DS: Discharge Diagnosis Discharge Diagnosis (1) Low back pain: Qualifiers: Back pain laterality: midline Chronicity: acute Sciatica presence: without sciatica Qualified Code(s): M54.5 - Low back pain Code(s): M54.5 - Low back pain Status: Acute Assessment and Plan: Patient with a history of L3 fractures status post fall Will adjust patient's pain medication. Once her blood pressure is more stabilized I will start a long-acting pain medication with breakthrough Imaging unremarkable Continue oxycodone 20 mg every 12 hours for breakthrough (2) Multiple myeloma: Qualifiers: Multiple myeloma remission status: not in remission Qualified Code(s): C90.00 - Multiple myeloma not having achieved remission Code(s): C90.00 - Multiple myeloma not having achieved remission Status: Chronic Assessment and Plan: Patient followed by Dr. Ontiveros On a maintenance treatment of Revlimid with a history of palliative radiation therapy to the bone (3) Anemia: Code(s): D64.9 - Anemia, unspecified Status: Chronic Assessment and Plan: Possibly secondary to multiple myeloma Patient hemoglobin 7.3>6.4 >7.8>9.1>9.5>8.1 2 units of PRBCs infusing Occult blood neg Patient baseline hemoglobin appears to be 9-10 Patient denies any hematemesis or melena Anemia work-up indicate vitamin B12 deficiency, iron studies consistent with anemia of chronic disease Patient does receive B12 injections Occult blood negative cont PPI and iron supplements (4) Electrolyte abnormality: Code(s): E87.8 - Other disorders of electrolyte and fluid balance, not elsewhere classified Status: Acute Assessment and Plan: Possibly secondary to dehydration and malignancy Sodium 121>126>125>128 Patient with chronic hyponatremia baseline appears to be between 129 and 132 Continue IV hydration and sodium supplements (5) Dehydration: Code(s): E86.0 - Dehydration Status: Acute Assessment and Plan: Continue IV fluids (6) Hypothyroidism: Qualifiers: Hypothyroidism type: unspecified Qualified Code(s): E03.9 - Hypothyroidism, unspecified Code(s): E03.9 - Hypothyroidism, unspecified Status: Chronic Assessment and Plan: Continue Synthroid 75 mcg daily (7) Acute pyelonephritis: Code(s): N10 - Acute pyelonephritis Status: Acute Assessment and Plan: As evidence by UA with protein, leukocytes, RBCs and bacteria UA culture preliminary no growth Zosyn started in the ED continue use of Zosyn added vancomycin due to spike in temperature WBCs within normal limits afebrile Lactic acid within normal limit (8) Acute kidney injury: Code(s): N17.9 - Acute kidney failure, unspecified Status: Acute Assessment and Plan: Possibly secondary to pyelonephritis versus dehydration Creatinine 1.29 >1.34 >1.16 >1.03 baseline appears to be 0.80 Will avoid nephrotoxic agent Renal dose medication DS: Summary Hospital Course Hospital Course: this is a 85-year-old female that presented to urgent care with uncontrolled chronic pain. Patient has a past medical history of anemia, arthritis, COVID-19, hyper cholesterolemia, hypothyroidism and multiple myeloma. Patient was admitted for pain control and pyelo. During this admission her hemoglobin dropped from 7-6 she was infused 2 units of PRBCs on discharge her hemoglobin 8.1. Her occult blood was negative today patient was discharged to [facility] nursing she previously resided at [facility]. Patient condition has much improved she is more alert today than she was on admission she was able to ambulate to the restroom with standby she notes that her pain is controlled. While here she was treated with Zosyn and vancomycin for polyn
--- NOTE | 2021-04-21 13:47 | PC.NURSE ---
Patient discharged to [facility] for rehab. Report called/given to Gloria MARTÍNEZ. [facility] provided transport via back to facility.
--- NOTE | 2021-04-24 11:30 | PC.NURSE ---
snf nurse states they received and understood the discharge instruction.
== END 2021-04-21 13:45 | DRG 690 ==
LOC: CHSED 19:00 → CHS2ND 21:59
PROVIDERS: Nurse Practitioner; Admitting Provider Emergency Medicine; Emergency Provider Emergency Medicine; PCP Internal Medicine; Visit Provider Emergency Medicine
DX: N39.0 Urinary tract infection, site not specified (principal); E87.1 Hypo-osmolality and hyponatremia; C90.00 Multiple myeloma not having achieved remission; M48.56XD Collapsed vertebra, not elsewhere classified, lumbar region, subsequent encounter for fracture with routine healing; E78.00 Pure hypercholesterolemia, unspecified; E03.9 Hypothyroidism, unspecified; D64.9 Anemia, unspecified; Z86.16 Personal history of COVID-19; Z98.42 Cataract extraction status, left eye; Z98.41 Cataract extraction status, right eye; N10 Acute pyelonephritis; N17.9 Acute kidney failure, unspecified; G89.29 Other chronic pain; E86.0 Dehydration; E53.8 Deficiency of other specified B group vitamins
CPT/HCPCS: 36415; 36430; 51701; 70450; 71250; 72131; 80053; 81001; 82248; 82272; 83605; 83735; 85014; 85018; 85025; 85027; 85610; 85730; 86850; 86880; 86900; 86901; 86923; 87040; 87077; 87086; 87088; 93005; 96360; 96372; 97161; 97165; 99285; A9270; C9113; J1885; J2543; J3370; J7030; J7050; P9016